=== PATIENT | female | born 1950 | race Caucasian/White ===

== ENCOUNTER → 2017-11-12 10:24 | Outpatient (CLI) | payer MEDICARE, OTHER, SELFPAY ==
[2017-11-12 10:30] VITALS: BP 133/85; PULSE 95; RESP 16; TEMP 36.8; O2SAT 97; BMI 35.1
[2017-11-12] MEDS: DENOSUMAB 60 MG/ML ML SQ (10:43)
== END ==
PROVIDERS: Family Provider Nurse Practitioner; PCP Nurse Practitioner; Visit Provider Nurse Practitioner
DX: M81.0 Age-related osteoporosis without current pathological fracture (principal)
CPT/HCPCS: 96372

== ENCOUNTER → 2017-12-09 13:14 | Outpatient (CLI) | payer MEDICARE, OTHER, SELFPAY ==
--- NOTE | 2017-12-09 13:19 | RAD_ITS ---
STUDY: X-RAY CHEST REASON FOR EXAM: Female, 67 years old. Cough. TECHNIQUE: PA and lateral views of the chest. COMPARISON: 04/02/2017. FINDINGS: The lungs are somewhat hyperinflated with COPD changes. The previously noted atelectatic changes in the right lower lobe have essentially cleared. No focal infiltrate is seen. There is no demonstrated pleural abnormality. Normal size heart. Normal mediastinum and beth. Normal visualized pulmonary arteries. There is atherosclerotic tortuosity of the aortic arch and descending thoracic aorta. There are diffuse degenerative changes of the visualized thoracic spine. There is increased kyphosis and levoscoliosis of the thoracic spine. There are mild degenerative changes of both shoulders. There is no demonstrated abnormality of the visualized soft tissue structures of the upper abdomen. RAD/Chest PA and Lateral IMPRESSION: No active pulmonary disease. Electronically Signed: Kalia Dave MD at 3:52 EDT Tel , Service support ,
== END ==
PROVIDERS: Family Provider Nurse Practitioner; PCP Nurse Practitioner; Visit Provider Nurse Practitioner
DX: R05 Cough (principal)
CPT/HCPCS: 71046

== ENCOUNTER 2018-05-01 15:40 | Emergency (ER) | payer MEDICARE, OTHER, SELFPAY ==
[2018-05-01 15:41] VITALS: BP 167/87; PULSE 69; RESP 19; TEMP 36.7; O2SAT 97; BMI 36.6
[2018-05-01 15:54] VITALS: BP 189/87; PULSE 69; RESP 14; O2SAT 95
--- NOTE | 2018-05-01 16:26 | ED.VISSUMM ---
- ER Visit Summary Date of Service: 05/01/18 Chief Complaint: Lightheaded History of Present Illness: The patient is a 68 F who sees Juliann davila. 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 States it is unchanged with standing. No vertigo. No chest pain, palpitations, or shortness of breath. No abdominal pain, nausea, vomiting, or diarrhea. Review of systems: General: No fever, chills, cold sweats. Cardiovascular: No chest pain, palpitations. Respiratory: No cough, shortness of breath, dyspnea on exertion. Gastrointestinal: No abdominal pain, nausea, vomiting, diarrhea, melena, or hematochezia. Genitourinary: No dysuria, frequency, hematuria. Skin: No rash. Neuro: No headache, numbness, weakness. Physical Examination: Vitals: Stable. Afebrile. General: Well-nourished and well-developed. Head: Normocephalic atraumatic. Neck: Supple, no lymphadenopathy. No JVD. Nontender. Cardiovascular: Regular rate and rhythm. No murmurs. Respiratory: No respiratory distress. Clear to auscultation bilaterally. Abdominal: Soft, nontender, nondistended, normal bowel sounds. No guarding, rebound, or peritoneal signs. Back: Nontender. Extremities: Nontender, no edema. Skin: Normal color, no rash. Neurologic: Alert and oriented ?3. Cranial nerves II through XII are intact. Normal strength and sensation. Psych: Normal affect. Test Results: EKG is sinus at 60 with no acute changes. CBC is marked for hemoglobin of 15.6. Chem-7 is more for glucose 158 and a BUN/creatinine ratio of 20.8. Emergency Department Course and Treatment: Patient had an IV placed. She was given a 500 cc bolus of normal saline and is resting comfortably. Her blood pressure has remained elevated in the 170-180/90-100 range. She continues to deny any headache or chest pain. Treatment Plan: Patient is on 10 mg of Norvasc a day. She is not on any other antihypertensive. She will be discharged instructions to follow-up with her primary care physician within a week for her blood pressure to be checked again. Return to the emergency department for any worsening symptoms. Disposition: To home in improved and stable condition. Impression: 1. Hypertension. 2. Lightheadedness. This note was generated with [employer] dictation software. It may contain incorrect words, spelling, and punctuation that were not noted in review of the chart prior to signing ED Disposition - Plan for ED Patient: Chief Complaint: Hypertension Instructions: ED Hypertension Conf Out Of Control Referrals: Juliann Dougherty [Primary Care Provider] - 1 Week
[2018-05-01 16:42] LABS: Absolute Lymphocyte Count 2.39 X10^3/ul (0.83-4.51); Absolute Neutrophil Count 5.4 X10^3/uL (2.0-7.7); Basophil# 0.03 X10^3/uL; Basophil% 0.3 % (0-1); Eosinophil# 0.18 X10^3/uL; Hematocrit 45.8 % (37-47); Hemoglobin 15.6 g/dl (12.0-15.0); Lymphocyte # 2.39 X10^3/ul (4.0); Mean Corp Hgb Conc 34.1 g/gl (32-36); Mean Platelet Vol. 10.9 fl (6.2-12.0); Monocyte# 0.82 X10^3/uL; Monocyte% 9.3 % (0-10); Neutrophil # 5.42 X10^3/uL (2.7-7.7); Neutrophil % 61.2 % (47-70); Platelet Count 182 K/mm3 (150-450); RBC Distribution Width CV 13.2 % (11.6-14.6); RBC Distribution Width SD 44.5 fl (35.1-43.9); Red Blood Count 4.87 M/mm3 (4.2-5.4); White Blood Count 8.9 K/mm3 (4.4-11.0)
[2018-05-01 16:44] LABS: POSITIVE COUNT NO; POSITIVE DIFFERENTIAL NO; POSITIVE MORPHOLOGY NO
[2018-05-01 16:57] LABS: Anion Gap 9 (5-15); BUN 15 mg/dL (7-18); BUN/Creat Ratio 20.8 RATIO (10-20); Calcium,Total 8.5 mg/dL (8.5-10.1); Chloride 105 mmol/L (98-107); Creatinine, Serum 0.72 mg/dL (0.55-1.02); EST Glomerular Filtration Rate 86 mL/min (>60); Est Glom Filt Rate - Afr Amer 104 mL/min (>60); Estimated Creatinine Clearance 71.81 ml/min; Glucose 158 mg/dL (74-106); Potassium 3.6 mmol/L (3.5-5.1); Sodium Level 141 mmol/L (136-145)
[2018-05-01 17:16] VITALS: BP 161/92
== END 2018-05-01 17:32 | disposition home or self-care (01) ==
PROVIDERS: Emergency Provider Emergency Medicine; Family Provider Nurse Practitioner; PCP Nurse Practitioner
DX: I10 Essential (primary) hypertension (principal); R42 Dizziness and giddiness; J44.9 Chronic obstructive pulmonary disease, unspecified; Z79.899 Other long term (current) drug therapy
CPT/HCPCS: 80048; 85025; 93005; 96360; 99284; J7040; A4216

== ENCOUNTER 2018-05-11 22:46 | Emergency (ER) | payer MEDICARE, OTHER, SELFPAY ==
[2018-05-11 22:46] VITALS: BP 157/91; PULSE 87; RESP 15; TEMP 36.7; BMI 36.3
--- NOTE | 2018-05-11 23:17 | ED.VISSUMM ---
- ER Visit Summary Date of Service: 05/11/18 Chief Complaint: Cough, sore throat, right ear pain History of Present Illness: The patient is a 68 F who presents with the above symptoms. Been ongoing for 2 days. She started off with sinus congestion and sore throat. Her throat was improving but she developed right ear pain tonight. Denies taking medications at home. She has not had a fever. She does have a history of COPD. Physical Examination: Vital signs are reviewed. HEENT exam reveals right TM erythema on the anterior portion. No rhinorrhea. She does have some slight oropharyngeal erythema. Heart is regular rate and rhythm. Lungs are clear. Abdomen soft. Neurologic exam normal. Test Results: None performed Emergency Department Course and Treatment: Patient will be given a azithromycin. She will do supportive care at home. She will follow-up with her PCP Treatment Plan: [] Disposition: Discharge Impression: Right otitis media This note was generated with Deolan dictation software. It may contain incorrect words, spelling, and punctuation that were not noted in review of the chart prior to signing ED Disposition - Plan for ED Patient: Chief Complaint: Ear Problem Referrals: Juliann Dougherty [Primary Care Provider] -
--- NOTE | 2018-05-11 23:18 | ED.DEP ---
ED Disposition - Plan for ED Patient: Disposition: Home or Assisted Living Chief Complaint: Ear Problem Instructions: ED Otitis Media Acute Adult Prescriptions: Azithromycin [Zithromax] 250 mg PO DAILY #4 tab Referrals: Juliann Dougherty [Primary Care Provider] -
[2018-05-11] MEDS: Azithromycin 250 MG Tablet 500 MG PO (23:26)
[2018-05-11 23:29] VITALS: BP 149/89; PULSE 87; RESP 16; O2SAT 94
== END 2018-05-11 23:31 | disposition home or self-care (01) ==
PROVIDERS: Emergency Provider Emergency Medicine; Family Provider Nurse Practitioner; PCP Nurse Practitioner
DX: H66.91 Otitis media, unspecified, right ear (principal); J44.9 Chronic obstructive pulmonary disease, unspecified; I10 Essential (primary) hypertension; E03.9 Hypothyroidism, unspecified; Z79.899 Other long term (current) drug therapy
CPT/HCPCS: 99282

== ENCOUNTER → 2018-07-28 12:48 | Outpatient (CLI) | payer MEDICARE, OTHER, SELFPAY ==
[2018-07-28 12:56] VITALS: BP 143/64; PULSE 81; RESP 18; TEMP 36.4; O2SAT 95; BMI 36.3
[2018-07-28] MEDS: DENOSUMAB 60 MG/ML ML SQ (13:05)
== END ==
PROVIDERS: Family Provider Nurse Practitioner; PCP Nurse Practitioner; Referring Provider Nurse Practitioner; Visit Provider Nurse Practitioner
DX: M81.0 Age-related osteoporosis without current pathological fracture (principal)
CPT/HCPCS: 96372; J0897

== ENCOUNTER 2018-08-29 09:56 | Outpatient (RCR) | payer MEDICARE, OTHER, SELFPAY ==
[2018-07-28 12:56] VITALS: BMI 36.3
== END 2018-09-08 23:59 ==
LOC: DC 09:56
PROVIDERS: Family Provider Nurse Practitioner; PCP Nurse Practitioner; Visit Provider Nurse Practitioner
DX: E11.9 Type 2 diabetes mellitus without complications (principal); Z71.3 Dietary counseling and surveillance
CPT/HCPCS: 97802

== ENCOUNTER 2018-09-17 08:09 | Outpatient (RCR) | payer MEDICARE, OTHER, SELFPAY ==
[2018-07-28 12:56] VITALS: BMI 36.3
== END 2018-10-09 23:59 ==
LOC: DC 08:09
PROVIDERS: Family Provider Nurse Practitioner; PCP Nurse Practitioner; Visit Provider Nurse Practitioner
DX: E11.9 Type 2 diabetes mellitus without complications (principal); Z71.3 Dietary counseling and surveillance
CPT/HCPCS: G0108

== ENCOUNTER → 2018-10-02 12:26 | Outpatient (CLI) | payer MEDICARE, OTHER, SELFPAY ==
[2018-07-28 12:56] VITALS: BMI 36.3
--- NOTE | 2018-10-02 12:32 | BI_ITS ---
MAMMOGRAPHY - BILATERAL SCREENING REASON FOR EXAM: Female, 68 years old. Routine annual screening examination. PERTINENT HISTORY: Non-contributory. TECHNIQUE: Digital bilateral breast gino (3D mammographic acquisition) in the CC and MLO projections. 2-D mediolateral oblique (MLO) and craniocaudad (CC) views of both breasts were obtained. CAD: Full Field Digital Mammography with Computer Added Detection was performed. COMPARISON: Comparison is made with prior study dated August 14, 2016 and April 20, 2014. FINDINGS: Breast Composition: There are scattered areas of fibroglandular density. There are no dominant masses or suspicious calcifications. No other significant abnormalities are identified. There has been no significant change since the prior study. BI/SCREENING MAMM (CAD), BILAT IMPRESSION: Stable bilateral screening mammogram. Yearly follow-up mammogram recommended. (A) ASSESSMENT CATEGORY: BIRADS Category 1: Negative. A letter regarding these results will be sent to the patient by the facility within 30 days. Approximately 10% of breast cancers are not detected by mammography. A normal mammogram should not delay biopsy of a clinically suspicious abnormality. [id number] Electronically Signed: Jose Billy MD at 15:00 EST , Service support ,
--- NOTE | 2018-10-02 12:34 | BD_ITS ---
STUDY: DUAL ENERGY X-RAY ABSORPTIOMETRY / DXA REASON FOR EXAM: Female, 68 years old. The patient is postmenopausal. Loss of height. TECHNIQUE: Bone Mineral Density (BMD) measurements of lumbar spine and bilateral hips were obtained. COMPARISON: Comparison is made with prior examination dated August 14, 2016. FINDINGS: Lumbar Spine (L1-L4): g/cm2 (1.007) / T-score (-1.6) / Z-score (0.0) Findings are suggestive of osteopenia with a moderate fracture risk. Increased kyphosis. Left Femur Total: g/cm2 (0.703) / T-score (-2.4) / Z-score (-1.1) Left Femoral Neck: g/cm2 (0.705) / T-score (-2.4) / Z-score (-0.9) Right Femur Total: g/cm2 (0.768) / T-score (-1.9) / Z-score (-0.6) Right Femoral Neck: g/cm2 (0.762) / T-score (-2.0) / Z-score (-0.5) The T-Scores on the most recent prior examination were: Lumbar Spine (L1-L4): There has been improvement of bone density since the previous examination. Left Femur Total: which represents an improvement of 0.9%. Right Femur Total: which represents a worsening of 1.5%. BD/Dexa Bone Density Study IMPRESSION: The patient is considered osteopenic as outlined below according to World [employer] Organization (WHO) criteria with a high fracture risk. There has been improvement of bone density since the previous examination. Reference Information: The T-score is the number of standard deviations above or below the standard which is normal for young adults at their peak bone mineral density. The World Health Organization (WHO) interprets the T-scores as follows: Above -1 Normal bone density Between -1 and -2.5 Osteopenia Equal to / or below -2.5 Osteoporosis As a practical clinical guideline, osteopenia may be graded as follows: Mild -1 through -1.5 Moderate -1.6 through -2.0 Severe -2.1 through -2.4 The Z-score is the number of standard deviations above or below age-matched controls. A Z-score of less than -1.5 would be considered abnormal. References: 1. NIH Osteoporosis and Related Bone Diseases http://www.osteo.org 2. International Society for Clinical Densitometry http://www.iscd.org 3. National Osteoporosis Foundation http://www.nof.org Electronically Signed: Jose Billy MD at 15:58 EST , Service support ,
== END ==
PROVIDERS: Family Provider Nurse Practitioner; PCP Nurse Practitioner; Referring Provider Nurse Practitioner; Visit Provider Nurse Practitioner
DX: Z12.31 Encounter for screening mammogram for malignant neoplasm of breast (principal); Z78.0 Asymptomatic menopausal state; M85.80 Other specified disorders of bone density and structure, unspecified site
CPT/HCPCS: 77063; 77067; 77080

== ENCOUNTER 2018-10-07 04:06 | Emergency (ER) | payer MEDICARE, OTHER, SELFPAY ==
[2018-07-28 12:56] VITALS: BMI 36.3
[2018-10-07 04:07] VITALS: BP 186/91; PULSE 73; RESP 14; TEMP 36; O2SAT 97; BMI 34.4
[2018-10-07 04:10] VITALS: BP 186/91; PULSE 69; RESP 14; O2SAT 99
--- NOTE | 2018-10-07 04:25 | ED.VISSUMM ---
- ER Visit Summary Date of Service: 10/07/18 Chief Complaint: [nausea and vomiting] History of Present Illness: The patient is a 68 F that presents with nausea and vomiting when she awoke several hours ago. She denies any urinary symptoms, abdominal pain, fever, or diarrhea. She overall appears well and nontoxic. She denies any chest pain or dyspnea. No recent fever or illness. She has no other complaints. Physical Examination: [General: The patient appears well and in no apparent distress. Patient is resting comfortably on cart. Skin: Warm, dry, no pallor noted. No rash. Head: Normocephalic, atraumatic Neck: Supple, nontender. Eye: PERRLA, EOMI ENT: Moist mucus membranes, pharynx within normal limits. Cardiovascular: Regular Rate and Rhythm, no gallups or rubs Respiratory: Patient is in no distress, no accessory muscle use, lungs are clear to auscultation, no wheezing, rales or rhonchi Musculoskeletal: normal ROM, no deformity, no tenderness, no swelling. 2+ radial and DP pulses symmetric. GI: No tenderness to palpation, no masses appreciated. No rebound, guarding, or rigidity noted. Neurological: A&O, normal strength and sensation. Psychiatric: Cooperative] Test Results: [] Emergency Department Course and Treatment: [Patient was given IV fluids and Zofran. Blood work and urinalysis were sent. Blood work overall unremarkable. Hemoglobin 16.2. Urinalysis not consistent with infection. On reevaluation at 0500 patient feels improved, repeat exam remains soft and nontender of her abdomen. She denies any pain. No vomiting while in the emergency department. I do not feel imaging or further evaluation is indicated at this time. She will be discharged to follow closely with her primary provider in the next 1-2 days and return with any new or worsening symptoms. She continues to deny any other symptoms or complaints. She states she feels significantly improved. Patient discharged home in stable and improved condition.] Treatment Plan: [See above] Disposition: [Discharged home, stable and improved condition] Impression: [Nausea and vomiting -resolved] This note was generated with Peek Kids[employer] software. It may contain incorrect words, spelling, and punctuation that were not noted in review of the chart prior to signing ED Disposition - Plan for ED Patient: Disposition: Home or Assisted Living Chief Complaint: Nausea/Vomiting Instructions: ED Nausea Vomiting Referrals: Juliann Dougherty, TOUR CONDUCTOR-C [Primary Care Provider] -
[2018-10-07] MEDS: 0.9% Normal Saline 1,000 ML 150 ML IV (04:30)
[2018-10-07] MEDS: Ondansetron 4 MG/2 ML Vial IV (04:36)
[2018-10-07 04:37] LABS: Mucous, Urine 0 SEEN /hpf (<or=2+)
[2018-10-07 04:39] LABS: Absolute Lymphocyte Count 2.28 X10^3/ul (0.83-4.51); Absolute Neutrophil Count 7.3 X10^3/uL (2.0-7.7); Basophil# 0.02 X10^3/uL; Basophil% 0.2 % (0-1); Eosinophil# 0.21 X10^3/uL; Hematocrit 48.4 % (37-47); Hemoglobin 16.2 g/dl (12.0-15.0); Lymphocyte # 2.28 X10^3/ul (4.0); Lymphocyte % 21.3 % (19-41); Mean Corp Hgb Conc 33.5 g/gl (32-36); Mean Corpuscular Hgb 31.3 pg (27.0-32.0); Mean Corpuscular Volume 93.4 fL (81-99); Mean Platelet Vol. 11.3 fl (6.2-12.0); Monocyte% 8.4 % (0-10); Neutrophil # 7.28 X10^3/uL (2.7-7.7); Neutrophil % 67.9 % (47-70); POSITIVE COUNT NO; POSITIVE DIFFERENTIAL NO; POSITIVE MORPHOLOGY NO; Platelet Count 226 K/mm3 (150-450); RBC Distribution Width CV 13.6 % (11.6-14.6); RBC Distribution Width SD 45.1 fl (35.1-43.9); Red Blood Count 5.18 M/mm3 (4.2-5.4); White Blood Count 10.7 K/mm3 (4.4-11.0)
[2018-10-07 04:44] LABS: Color, Urine Yellow (Yellow); Glucose, Dipstick Normal (Normal); Ketone-Dipstick Negative (Negative); Leukocyte Esterase-Dipstick 25 /ul (Negative); Nitrite-Dipstick Negative (Negative); Occult Blood-Urine 10 /ul (Negative); Protein-Dipstick Negative (Negative); Urine Bilirubin Dipstick Negative (Negative); Urine Clarity Sl. Cloudy (Clear); Urine Urobilinogen Normal (Normal)
[2018-10-07 04:50] LABS: Red Blood Cells-Urine 0-5 SEEN /hpf (0-5); White Blood Cells 0-5 SEEN /hpf (0-5)
[2018-10-07 04:51] LABS: Amorphous Sediment 1+ PHOS; Bacteria RARE /hpf (None Seen); Calcium Oxalate Crystals Ur RARE /hpf (<or=2+); Squamous Epithelial Cells - UA 0-5 SEEN /hpf (5-10)
[2018-10-07 04:58] LABS: ALB/GLOB Ratio 1.2 RATIO (0.9-2.4); AST(SGOT) 22 U/L (15-37); Alanine Aminotransfer ALT/SGPT 31 U/L (13-56); Alkaline Phosphatase 71 U/L (45-117); Anion Gap 9 (5-15); BUN 25 mg/dL (7-18); BUN/Creat Ratio 34.5 RATIO (10-20); Calcium,Total 8.9 mg/dL (8.5-10.1); Chloride 108 mmol/L (98-107); Creatinine, Serum 0.72 mg/dL (0.55-1.02); EST Glomerular Filtration Rate 85 mL/min (>60); Est Glom Filt Rate - Afr Amer 103 mL/min (>60); Estimated Creatinine Clearance 65.26 ml/min; Globulin 3.4 g/dL (2.2-4.2); Glucose 137 mg/dL (74-106); Lipase 119 U/L (73-393); Potassium 3.7 mmol/L (3.5-5.1); Protein, Total 7.4 g/dL (6.4-8.2); Sodium Level 143 mmol/L (136-145)
[2018-10-07 05:12] VITALS: BP 166/85; PULSE 58; O2SAT 97
== END 2018-10-07 05:14 | disposition home or self-care (01) ==
PROVIDERS: Emergency Provider Emergency Medicine; Family Provider Nurse Practitioner; PCP Nurse Practitioner
DX: R11.2 Nausea with vomiting, unspecified (principal); E11.9 Type 2 diabetes mellitus without complications; I10 Essential (primary) hypertension; E03.9 Hypothyroidism, unspecified; F41.9 Anxiety disorder, unspecified; Z79.899 Other long term (current) drug therapy
CPT/HCPCS: 80053; 81001; 83690; 85025; 96361; 96374; 99283; J7030; J2405

== ENCOUNTER 2018-10-22 14:00 | Outpatient (RCR) | payer MEDICARE, OTHER, SELFPAY ==
[2018-10-10 01:35] VITALS: BMI 36.3
== END 2018-11-06 23:59 ==
LOC: DC 14:00
PROVIDERS: Family Provider Nurse Practitioner; PCP Nurse Practitioner; Visit Provider Nurse Practitioner
DX: E11.9 Type 2 diabetes mellitus without complications (principal); Z71.3 Dietary counseling and surveillance
CPT/HCPCS: 97803; G0108

== ENCOUNTER → 2018-11-12 13:26 | Outpatient (CLI) | payer MEDICARE, OTHER, SELFPAY ==
[2018-11-07 01:15] VITALS: BMI 34.4
--- NOTE | 2018-11-12 13:35 | RAD_ITS ---
STUDY: X-RAY - RIGHT KNEE REASON FOR EXAM: Female, 68 years old. Chronic pain TECHNIQUE: 4 view(s) of the knee. COMPARISON: None. FINDINGS: Possible focal subchondral defect of the medial femoral condyle at the articular surface. Normal visualized proximal tibia and fibula. Normal proximal tibiofibular articulation. Degenerative spurring and narrowing at the medial femorotibial compartment. Normal lateral femorotibial compartment. Degenerate spurring and narrowing at the patellofemoral articulation. The soft tissue structures are unremarkable. RAD/Knee 4 or More Views IMPRESSION: Degenerative changes of the knee. Possible small subchondral defect of the medial femoral condyle over the articular surface. Electronically Signed: Yosvany Ambrocio DO at 19:08 EST Tel [phone], Service support ,
== END ==
PROVIDERS: Family Provider Nurse Practitioner; PCP Nurse Practitioner; Referring Provider Nurse Practitioner; Visit Provider Internal Medicine
DX: M25.561 Pain in right knee (principal)
CPT/HCPCS: 73564

== ENCOUNTER 2018-11-16 00:56 | Emergency (ER) | payer MEDICARE, OTHER, SELFPAY ==
[2018-11-07 01:15] VITALS: BMI 34.4
[2018-11-16 00:56] VITALS: BP 132/87; PULSE 98; PULSE 99; RESP 18; TEMP 36.4; O2SAT 94; O2SAT 95; BMI 32.1
[2018-11-16] MEDS: 0.9% Normal Saline 1,000 ML 1000 ML IV (01:50)
[2018-11-16] MEDS: Ondansetron 4 MG/2 ML Vial IV (01:51)
[2018-11-16] MEDS: Loperamide 2 MG Capsule 4 MG PO (03:01)
[2018-11-16 03:06] LABS: Absolute Lymphocyte Count 1.35 X10^3/ul (0.83-4.51); Absolute Neutrophil Count 9.9 X10^3/uL (2.0-7.7); Basophil# 0.03 X10^3/uL; Basophil% 0.2 % (0-1); Eosinophil# 0.23 X10^3/uL; Eosinophils% 1.8 % (0-5); Hematocrit 48.1 % (37-47); Hemoglobin 16.1 g/dl (12.0-15.0); Lymphocyte # 1.35 X10^3/ul (4.0); Lymphocyte % 10.9 % (19-41); Mean Corp Hgb Conc 33.5 g/gl (32-36); Mean Corpuscular Hgb 31.4 pg (27.0-32.0); Mean Corpuscular Volume 93.8 fL (81-99); Mean Platelet Vol. 11.8 fl (6.2-12.0); Monocyte# 0.91 X10^3/uL; Monocyte% 7.3 % (0-10); Neutrophil # 9.91 X10^3/uL (2.7-7.7); Neutrophil % 79.7 % (47-70); Platelet Count 218 K/mm3 (150-450); RBC Distribution Width SD 46.5 fl (35.1-43.9); Red Blood Count 5.13 M/mm3 (4.2-5.4); White Blood Count 12.4 K/mm3 (4.4-11.0)
[2018-11-16 03:15] LABS: POSITIVE COUNT NO; POSITIVE DIFFERENTIAL NO; POSITIVE MORPHOLOGY NO
[2018-11-16 03:37] LABS: ALB/GLOB Ratio 1.3 RATIO (0.9-2.4); AST(SGOT) 50 U/L (15-37); Alanine Aminotransfer ALT/SGPT 35 U/L (13-56); Albumin, Serum 4.3 g/dL (3.2-5.0); Alkaline Phosphatase 64 U/L (45-117); Anion Gap 10 (5-15); BUN 24 mg/dL (7-18); BUN/Creat Ratio 27.3 RATIO (10-20); Calcium,Total 8.9 mg/dL (8.5-10.1); Chloride 107 mmol/L (98-107); Creatinine, Serum 0.88 mg/dL (0.55-1.02); EST Glomerular Filtration Rate 68 mL/min (>60); Est Glom Filt Rate - Afr Amer 83 mL/min (>60); Globulin 3.4 g/dL (2.2-4.2); Glucose 205 mg/dL (74-106); Lipase 149 U/L (73-393); Potassium 5.1 mmol/L (3.5-5.1); Protein, Total 7.7 g/dL (6.4-8.2); Sodium Level 138 mmol/L (136-145)
--- NOTE | 2018-11-16 04:05 | ED.VISSUMM ---
- ER Visit Summary Date of Service: 11/16/18 Chief Complaint: Nausea vomiting and diarrhea History of Present Illness: The patient is a 68 F who presents with nausea vomiting and diarrhea. This all began acutely about 6 hours before presentation. She reports 4-5 episodes of nonbloody nonbilious emesis and 3-4 episodes of watery stools. No abdominal pain. She states her throat is burning from vomiting but she otherwise has no complaints. No recent illness. No fevers. She notes that she ate chili for dinner and thought that this may be related. No sick contacts. Physical Examination: Afebrile vitals are normal Moist mucous membranes Heart regular rate and rhythm Lungs are clear Abdomen soft nontender nondistended Alert Normal affect Test Results: Labs notable for white count 12.4, hemoglobin 16.1, hepatic function unremarkable lipase normal. Emergency Department Course and Treatment: Patient was treated here with IV fluids Zofran and sodium. She feels better on reevaluation. I suspect this is related to gastroenteritis either food poisoning or viral. She was advised on supportive care. She understands to return for new or worsening symptoms. She was instructed on bland diet. She was given a prescription for Zofran. Patient discharged. Treatment Plan: [] Disposition: Discharge Impression: Gastroenteritis This note was generated with Tri[employer]o dictation software. It may contain incorrect words, spelling, and punctuation that were not noted in review of the chart prior to signing ED Disposition - Plan for ED Patient: Referrals: Juliann Dougherty, GUEST ADVISOR-C [Primary Care Provider] -
--- NOTE | 2018-11-16 04:09 | ED.DCSUM_ITS ---
- ER Visit Summary Date of Service: 11/16/18 Chief Complaint: Nausea vomiting and diarrhea History of Present Illness: The patient is a 68 F who presents with nausea vomiting and diarrhea. This all began acutely about 6 hours before presentation. She reports 4-5 episodes of nonbloody nonbilious emesis and 3-4 episodes of watery stools. No abdominal pain. She states her throat is burning from vomiting but she otherwise has no complaints. No recent illness. No fevers. She notes that she ate chili for dinner and thought that this may be related. No sick contacts. Physical Examination: Afebrile vitals are normal Moist mucous membranes Heart regular rate and rhythm Lungs are clear Abdomen soft nontender nondistended Alert Normal affect Test Results: Labs notable for white count 12.4, hemoglobin 16.1, hepatic function unremarkable lipase normal. Emergency Department Course and Treatment: Patient was treated here with IV fluids Zofran and sodium. She feels better on reevaluation. I suspect this is related to gastroenteritis either food poisoning or viral. She was advised on supportive care. She understands to return for new or worsening symptoms. She was instructed on bland diet. She was given a prescription for Zofran. Patient discharged. Treatment Plan: [] Disposition: Discharge Impression: Gastroenteritis This note was generated with Dream[employer] dictation software. It may contain incorrect words, spelling, and punctuation that were not noted in review of the chart prior to signing ED Disposition - Plan for ED Patient: Referrals: Juliann Dougherty, SOFTWARE QA MANAGER-C [Primary Care Provider] -
--- NOTE | 2018-11-16 04:09 | ED.DEP ---
ED Disposition - Plan for ED Patient: Instructions: ED Food Poison Or Gastroenteritis Prescriptions: Ondansetron [Zofran Odt] 4 mg PO Q8H PRN PRN #10 tab PRN Reason: Nausea Referrals: Juliann Dougherty NP-C [Primary Care Provider] -
[2018-11-16 04:30] VITALS: BP 130/70; PULSE 62; RESP 15; O2SAT 93
== END 2018-11-16 04:34 | disposition home or self-care (01) ==
PROVIDERS: Emergency Provider Emergency Medicine; Family Provider Nurse Practitioner; PCP Nurse Practitioner
DX: K52.9 Noninfective gastroenteritis and colitis, unspecified (principal); E11.9 Type 2 diabetes mellitus without complications; I10 Essential (primary) hypertension; Z79.84 Long term (current) use of oral hypoglycemic drugs; Z79.899 Other long term (current) drug therapy
CPT/HCPCS: 80053; 83690; 85025; 96361; 96374; 99284; J7030; A4216; J2405

== ENCOUNTER → 2018-11-17 14:39 | Outpatient (CLI) | payer MEDICARE, OTHER, SELFPAY ==
[2018-11-16 00:56] VITALS: BMI 32.1
[2018-11-17 15:00] LABS: Hematocrit 45.7 % (37-47); Hemoglobin 14.5 g/dl (12.0-15.0); Mean Corp Hgb Conc 31.7 g/gl (32-36); Mean Corpuscular Hgb 30.7 pg (27.0-32.0); Mean Corpuscular Volume 96.8 fL (81-99); Platelet Count 202 K/mm3 (150-450); Red Blood Count 4.72 M/mm3 (4.2-5.4); White Blood Count 10.1 K/mm3 (4.4-11.0)
[2018-11-17 15:19] LABS: Eosinophil 7 % (0-5); Lymphocyte 31 % (19-41); Monocyte 8 % (0-10); Neutrophil-Segmented 54 % (47-70); Total Cells Counted 100 (MANUAL DIFF)
[2018-11-17 15:23] LABS: Platelet Estimate ADEQUATE (ADEQ); Red Cell Morphology NORM C+C NORMAL (NORM C&C)
[2018-11-17 15:24] LABS: Absolute Neutrophil Count 5.5 X10^3/uL (2.0-7.7)
== END ==
PROVIDERS: Family Provider Nurse Practitioner; PCP Nurse Practitioner; Referring Provider Internal Medicine; Visit Provider Internal Medicine
DX: D72.829 Elevated white blood cell count, unspecified (principal)
CPT/HCPCS: 85007; 85027

== ENCOUNTER 2018-11-19 12:19 | Outpatient (RCR) | payer MEDICARE, OTHER, SELFPAY ==
[2018-11-07 01:15] VITALS: BMI 34.4
== END 2018-12-07 23:59 ==
LOC: DC 12:19
PROVIDERS: Family Provider Nurse Practitioner; PCP Nurse Practitioner; Visit Provider Nurse Practitioner
DX: E11.9 Type 2 diabetes mellitus without complications (principal); Z71.3 Dietary counseling and surveillance
CPT/HCPCS: G0108

== ENCOUNTER 2018-12-17 14:36 | Outpatient (RCR) | payer MEDICARE, OTHER, SELFPAY | END 2019-01-06 23:59 | LOC: DC 14:36 | PROVIDERS: Family Provider Nurse Practitioner; PCP Nurse Practitioner; Visit Provider Nurse Practitioner | DX: E11.9 Type 2 diabetes mellitus without complications (principal); Z71.3 Dietary counseling and surveillance | CPT/HCPCS: 97803 ==

== ENCOUNTER 2019-01-09 11:30 | Outpatient (RCR) | payer MEDICARE, OTHER, SELFPAY ==
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
--- NOTE | 2018-12-12 11:11 | HP.PTREVAL ---
Stacie Rodriguez, DO, It has been my pleasure to treat LAISHA DELGADO over the last 10 visits for R and L knee pain and generalized weakness. Please see the progress note below for an update on the physical therapy plan of care! Subjective: Pt feels that she can walk better. He knee can be swollen some day and other not. She is really pleased with how the water makes her feel. She is thinking about joining here as a member Objective/Function: LE MMT: LE MMT: R hip flex 4/5 and L hip flex 4/5, R knee ext 4/5 and L 4-/5, R hip abd 4/5 and L 4-/5, R hip ext 4-/5 and L hip ext 4/5, B knee flex 4/5 but some in crease pain when testing on the R). Plan Plan: Continue with AT 2 X/ week for 3 weeks.... and then 2X/ week (1X AT and 1X land) to progress to H&W program Goals Goal 1:: I HEP Goal Time Frame: 6-8 Weeks Goal Progress: Goal Met Goal 2:: Be able to ascend and descend stairs recip with 1 hand rail for safety with fluidity Goal Time Frame: 6-8 Weeks Goal Progress: Progressing Goal 3:: Increase LE MMT by 1/2 muscle grade (LE MMT: R hip flex 4/5 and L hip flex 4-/5, R knee ext 4/5 and L 4-/5, R hip abd 4/5 and L 4-/5, R hip ext 4-/5 and L hip ext 4/5, B knee flex 4/5 but some in crease pain when testing on the R). Goal Progress: Progressing Anticipated Interventions Patient/Client Instruction: Educate patient on: Condition, Plan of Care For the Purpose of:: To decrease pain, To increase ROM, To improve nutrient delivery to tissue, To improve muscle performance and motor function, To improve ability to perform ADL's, To increase tolerance to activity/condition/position, To improve performance and independence with ADL's, To improve ability of physical actions for home/community/work/leisure, To improve gait and locomotor functions, To improve health of tissue, To decrease soft tissue restriction, To increase flexibility/ROM Therapeutic Exercise to Include: Strength training, Flexibilty training, Gait and locomotor training, In an aquatic setting, Passive ROM, Active ROM For the Purpose of:: To decrease pain, To increase ROM, To improve nutrient delivery to tissue, To improve muscle performance and motor function, To improve ability to perform ADL's, To increase tolerance to activity/condition/position, To decrease level of supervision to perform tasks, To improve ability of physical actions for home/community/work/leisure, To improve health of tissue, To decrease soft tissue restriction, To increase flexibility/ROM Functional Training to Include: Gait training For the Purpose of:: To improve gait and locomotor functions Please do not hesitate to contact me at [phone] by phone or if you have questions or concerns regarding this new plan of care! Sincerely, Luisana Mckeon MPT
--- NOTE | 2019-01-09 12:41 | HP.PTDCSUM ---
HP - PT D/C Summary It has been my pleasure to treat LAISHA DELGADO under orders from Stacie Rodriguez DO, for the diagnosis of R and L knee pain and generalized weakness for a total of 17 visit(s). Discharge Date: 01/09/19 Please see the following information for a summary of their discharge status. - Subjective Subjective: Pt reports taht her knee still swells up on her but she does not feeling like someone is grabbing her knee. is going to give her some shots. - Pain L knee Pain Intensity (Out of 10): 3 - Overall Improvement % Improvement: 70 - Objective Objective/Function: Encouraging pt to begin I pool progarm at this time, states she has not begun. Discussions of process and the combination of land and pool. Able to progress into greater WBing with step up/downs without c/o's. Some difficulty following commands of paper used today for transition to I pool program. - Goals Goal 1:: I HEP Goal Progress: Goal Met Goal 2:: Be able to ascend and descend stairs recip with 1 hand rail for safety with fluidity Goal Progress: Progressing Goal 3:: Increase LE MMT by 1/2 muscle grade (LE MMT: R hip flex 4/5 and L hip flex 4-/5, R knee ext 4/5 and L 4-/5, R hip abd 4/5 and L 4-/5, R hip ext 4-/5 and L hip ext 4/5, B knee flex 4/5 but some in crease pain when testing on the R). Goal Progress: Progressing - Plan Plan: DC PT to [facility] - D/C Information Discharge Comments: DC PT to [facility] If there are questions or concerns regarding this patient's physical therapy, please feel free to call me at [phone]. Thank you for the referral of this patient. Sincerely, Luisana Mckeon, MPT
== END 2019-01-09 19:00 | disposition home or self-care (01) ==
LOC: PT 11:30
PROVIDERS: Family Provider Nurse Practitioner; PCP Nurse Practitioner; Referring Provider Internal Medicine; Visit Provider Internal Medicine
DX: M25.561 Pain in right knee (principal); M25.562 Pain in left knee; R29.898 Other symptoms and signs involving the musculoskeletal system; Z96.652 Presence of left artificial knee joint
CPT/HCPCS: 97110; 97113; 97161; 97530

== ENCOUNTER 2019-01-14 10:45 | Outpatient (RCR) | payer MEDICARE, OTHER, SELFPAY | END 2019-01-14 23:59 | disposition home or self-care (01) | LOC: DC 10:45 | PROVIDERS: Family Provider Nurse Practitioner; PCP Nurse Practitioner; Visit Provider Nurse Practitioner | DX: E11.9 Type 2 diabetes mellitus without complications (principal); Z71.3 Dietary counseling and surveillance | CPT/HCPCS: G0108 ==

== ENCOUNTER → 2019-01-29 13:29 | Outpatient (CLI) | payer MEDICARE, OTHER, SELFPAY ==
[2019-01-29 13:37] VITALS: BP 132/73; PULSE 73; RESP 16; TEMP 36.6; O2SAT 92; BMI 31.5
[2019-01-29] MEDS: DENOSUMAB 60 MG/ML ML SQ (13:41)
== END ==
PROVIDERS: Family Provider Nurse Practitioner; PCP Nurse Practitioner; Referring Provider Nurse Practitioner; Visit Provider Nurse Practitioner
DX: M81.0 Age-related osteoporosis without current pathological fracture (principal)
CPT/HCPCS: 96372; J0897

== ENCOUNTER 2019-03-07 18:37 | Emergency (ER) | payer MEDICARE, OTHER, SELFPAY ==
[2019-03-07 18:37] VITALS: BMI 31.5
[2019-03-07 18:38] VITALS: BP 117/70; PULSE 86; RESP 16; TEMP 36.4; O2SAT 94; BMI 30.9
--- NOTE | 2019-03-07 18:54 | ED.VISSUMM ---
- ER Visit Summary Date of Service: 03/07/19 Chief Complaint: [Wound on right ankle] History of Present Illness: The patient is a 68 F [resents to the emergency department with a wound on her right ankle that started about 3 or 4 days ago. Patient states that initially she first noticed some itching to the ankle and noticed a small bump associated with it. Patient states that subsequently became more uncomfortable and swollen. She was seen by nurse practitioner 3 days ago and started on Bactrim for suspicion of MRSA infection. Patient states that she had the expected wound squeezed and there was clear fluid that came out of it. Denies any fevers. She continues to complain of some blistering to the area.] Patient is a type II diabetic on oral meds and states that normally her blood sugars in the low 100s to as high as 120. Physical Examination: [HEENT-PERRLA, EOMI. Cranial nerves II through XII grossly intact. TMs clear. Mucous membranes moist. No adenopathy. Cardiovascular-regular rate and rhythm without murmur or ectopy Lungs-clear to auscultation, chest wall stable without crepitus or subcu emphysema Abdomen-normoactive bowel sounds, soft, nontender, no rebound or rigidity, no peritoneal signs. Extremities-intact ?4, normal range of motion, normal pulses, atraumatic. Right ankle-to the posterior aspect of the ankle and over the Achilles tendon patient has multiple small vesicles with clear fluid. There is some mild surrounding erythema however the wound does not look overtly cellulitic. There is no lymphangitic streaking. She is neurovascular intact.] Test Results: [None indicated] Emergency Department Course and Treatment: [Patient was started on prednisone 40 mg p.o.] Treatment Plan: [We will treat patient with prednisone for 5 days. Patient to follow-up with her primary care physician for wound check and 3 to 5 days. I suspect patient likely has a contact dermatitis rather than a infection however I did advise her to continue with the antibiotic that she has started until he was finished.] Disposition: [Discharged home stable condition] Impression: [Contact dermatitis] This note was generated with [employer] software. It may contain incorrect words, spelling, and punctuation that were not noted in review of the chart prior to signing ED Disposition - Plan for ED Patient: Referrals: Juliann Dougherty, MOTOR VEHICLE REPRESENTATIVE-C [Primary Care Provider] -
--- NOTE | 2019-03-07 18:58 | ED.DEP ---
ED Disposition - Plan for ED Patient: Instructions: Contact Dermatitis Prescriptions: Prednisone [Deltasone] 20 mg PO BID #10 tab Prescription Printed Referrals: Juliann Dougherty, JIMMY-C [Primary Care Provider] - 3-5 Days
[2019-03-07] MEDS: predniSONE 20 MG Tablet 40 MG PO (19:01)
== END 2019-03-07 19:22 | disposition home or self-care (01) ==
LOC: ED 19:09
PROVIDERS: Emergency Provider Emergency Medicine; Family Provider Nurse Practitioner; PCP Nurse Practitioner
DX: L25.9 Unspecified contact dermatitis, unspecified cause (principal); E11.9 Type 2 diabetes mellitus without complications; I10 Essential (primary) hypertension; Z79.84 Long term (current) use of oral hypoglycemic drugs; Z79.899 Other long term (current) drug therapy; Z96.652 Presence of left artificial knee joint
CPT/HCPCS: 99283

== ENCOUNTER 2019-05-25 16:43 | Emergency (ER) | payer MEDICARE, OTHER, SELFPAY ==
[2019-05-25 16:44] VITALS: BP 137/72; PULSE 65; RESP 16; TEMP 36.6; O2SAT 98; BMI 31.1
--- NOTE | 2019-05-25 17:51 | ED.VIS.GI ---
History of Present Illness Chief Complaint: Nausea/Vomiting/Diarrhea Informant: Patient - Abdominal Pain/Flank Pain Onset: Yesterday Context: Sudden Onset Timing: Continuous Quality: Aching Location: Diffuse Current Severity: Mild Maximum Severity: Severe Worsened by: Food - Possibly. Not Worsened By: Car ride, Movement Relieved by: Nothing. Not Relieved By: Antacids, Food, Remaining Still - Nausea/Vomiting/Emesis GI Symptom: Nausea, Vomiting - Is 1 this morning Onset: Today Quality: Nonbilious. Negative for: Blood streaks, Coffee ground, Hematemesis Severity: Mild - Diarrhea/Melena/Hematochezia GI Symptom: Diarrhea. Negative for: Melena, Hematochezia Onset: Yesterday Stool Quality: Loose, Watery, - - Times 7 since onset last evening Severity: Moderate Episodes: 7 Associated Symptoms: Negative for: Dysuria, Frequency, Hematuria, Urgency Narrative: She is an elderly woman who is a poor informant. She does have medical problems. She denies any ill contacts. Denies fever chills. Eyes dry mouth, thirst or orthostatic symptoms. She reports emesis x1. There was no blood or coffee grounds emesis. She is had 7 loose watery stools without blood or mucus. She has no history of inflammatory bowel disorder. There is no history of irritable bowel syndrome. She denies any ill contacts. She states she had pizza last evening. The pizza tasted fine. Prior similar symptoms: No Recent Illness/Hospitalization: No - Past Medical History (1) Hypertension Status: Acute (2) Hypothyroid Status: Acute (3) Osteoarthritis Status: Acute Past Medical History - Allergies and Home Meds Allergies/Adverse Reactions: Allergies Penicillins Allergy (Verified 03/07/19 18:38) Unknown Primary Care Physician: Juliann Dougherty NP-C [Primary Care Provider] - Surgical History: total knee arthroplasty - left 12/05/15, tonsillectomy Lives: Alone Smoking Status: Former smoker Alcohol: None Drugs: None - Family History Maternal Family History: Reports: Cancer - in 30's, unknown type Paternal Family History: Reports: No pertinent history - in 70's Review of Systems General: Denies: Chills, Fever, Malaise, Sweats Eyes: Denies: Visual changes - bilaterally, Blurred Vision - bilaterally, Diplopia ENT: Denies: Bilateral ear pain, Rhinorrhea, Sore throat Cardiovascular: Denies: Chest pain, Palpitations Respiratory: Denies: Dyspnea, Cough, Dyspnea on exertion Gastrointestinal: Reports: Abdominal pain, Nausea, Vomiting, Diarrhea. Denies: Constipation, Melena, Hematochezia, -, - Genitourinary: Denies: Dysuria, Hematuria, Frequency Musculoskeletal: Denies: Myalgias, Arthralgias, Neck pain, Back pain, Swelling, Extremity Pain Skin: Denies: Rash, Wounds Neurological: Denies: Headache, Weakness, Numbness Hematologic: Denies: Easy bruising, Easy bleeding Physical Exam Vital Signs/Narrative: Vital Signs Temp Pulse Resp BP Pulse Ox 05/25/19 16:44 97.8 F 65 16 137/72 H 98 Inital Vital Signs reviewed: Yes General: Well nourished, Well developed, No Acute Distress Head: Normocephalic, Atraumatic Eyes: Perrl, EOMI ENT: Moist mucous membranes, No rhinorrhea Neck: Supple, Nontender Cardiovascular: Regular rate, Regular rhythm, No murmurs Respiratory: No distress, CTA bilaterally, Chest nontender Abdomen: Soft, Nondistended - Abdomen is tympanitic to percussion., Normal bowel sounds, Tender - Intimal tenderness on deep palpation.. Negative for: Hepatomegaly, Splenomegaly, Pulsatile mass, Ventral hernia, Umbilical hernia Rectal: Deferred Back: Nontender, Normal Inspection. Negative for: CVA tenderness Extremities: Nontender, No edema Skin: Normal color, No rash Neurological: Alert, Oriented x3, Cranial nerves II-XII grossly intact, Normal Strength, Normal Sensation Psychological: Normal affect, Normal Mood Diagnostic/Tx/Re-eval Laboratory Results 05/25/19 05/25/19 17:58 17:58 WBC 14.3 H RBC 5.22 Hgb 16.2 H Hct 50.2 H MCV 96.2 MCH 31.0 MCHC 32.3 RDW Std Deviation 46.8 H RDW Coeff of [place] 13.2 Plt Count 218 MPV 11.3 Immature Gran % (Auto) 0.300 Neut % (Auto) 71.3 H Lymph % (Auto) 15.0 L [place] % (Auto) 9.0 Eos % (Auto) 4.1 Baso % (Auto) 0.3 Absolute Neuts (auto) 10.2 H Absolute Lymphs (auto) 2.14 Nucleated RBC % 0 Sodium 145 Potassium 4.6 Chloride 112 H Carbon Dioxide 25.0 Anion Gap 8 BUN 27 H Creatinine 0.77 Estim Creat Clear Calc 60.20 Est GFR (MDRD) Af Amer 96 Est GFR (MDRD) Non-Af 79 BUN/Creatinine Ratio 35.1 H Glucose 124 H Calcium 9.6 White count is slightly elevated with no shift. Basic metabolic panel reveals elevated BUN/creatinine ratio consistent with mild dehydration. There is no evidence of renal injury. Patient was reassessed at 1910. She states she feels markedly better. She is had no diarrhea or vomiting department. She will be discharged with prescription for Bentyl and Zofran. - Medical Decision Making Patient's mucosa is moist Pillard will treat with p.o. meds. Because she is elderly and a poor informant we will obtain basic metabolic panel to assess electro lites and specifically potassium and renal function. CBC was obtained to assess white count and H&H. ED Disposition - Plan for ED Patient: Disposition: Home or Assisted Living Diagnosis: Abdominal pain, vomiting, and diarrhea, Mild dehydration Prescriptions: Dicyclomine HCl [Bentyl] 20 mg PO TIDAC #10 cap Prescription Printed Ondansetron [Zofran Odt] 4 mg PO Q8H PRN PRN #7 tab PRN Reason: Nausea Prescription Printed Referrals: Juliann Dougherty, JIMMY-C [Primary Care Provider] - As Needed
[2019-05-25] MEDS: Loperamide 2 MG Capsule 4 MG PO (18:04)
[2019-05-25] MEDS: Ondansetron ODT 4 MG Tablet PO (18:04)
[2019-05-25] MEDS: Dicyclomine 10 MG Capsule 20 MG PO (18:04)
[2019-05-25 18:16] LABS: Absolute Lymphocyte Count 2.14 X10^3/uL (0.83-4.51); Absolute Neutrophil Count 10.2 X10^3/uL (2.0-7.7); Basophil# 0.05 X10^3/uL; Basophil% 0.3 % (0-1); Eosinophil# 0.58 X10^3/uL; Eosinophils% 4.1 % (0-5); Hematocrit 50.2 % (37-47); Hemoglobin 16.2 g/dL (12.0-15.0); Lymphocyte # 2.14 X10^3/ul (4.0); Mean Corp Hgb Conc 32.3 g/dL (32-36); Mean Corpuscular Volume 96.2 fL (81-99); Mean Platelet Vol. 11.3 fl (6.2-12.0); Monocyte# 1.29 X10^3/uL; NRBC Flagged by Analyzer 0 % (0-5); Neutrophil # 10.19 X10^3/uL (2.7-7.7); Neutrophil % 71.3 % (47-70); Platelet Count 218 K/mm3 (150-450); RBC Distribution Width CV 13.2 % (11.6-14.6); RBC Distribution Width SD 46.8 fl (35.1-43.9); Red Blood Count 5.22 M/mm3 (4.2-5.4); White Blood Count 14.3 K/mm3 (4.4-11.0)
[2019-05-25 18:32] LABS: Anion Gap 8 (5-15); BUN 27 mg/dL (7-18); BUN/Creat Ratio 35.1 RATIO (10-20); Calcium,Total 9.6 mg/dL (8.5-10.1); Chloride 112 mmol/L (98-107); Creatinine, Serum 0.77 mg/dL (0.55-1.02); EST Glomerular Filtration Rate 79 mL/min (>60); Est Glom Filt Rate - Afr Amer 96 mL/min (>60); Glucose 124 mg/dL (74-106); Potassium 4.6 mmol/L (3.5-5.1); Sodium Level 145 mmol/L (136-145)
[2019-05-25 18:53] VITALS: BP 153/72; PULSE 61; RESP 16; O2SAT 95
--- NOTE | 2019-05-25 19:13 | ED.VISSUMM ---
- ER Visit Summary Date of Service: 05/25/19 Chief Complaint: [] History of Present Illness: The patient is a 69 F [] Physical Examination: [] Test Results: [] Emergency Department Course and Treatment: [] Treatment Plan: [] Disposition: [] Impression: [] This note was generated with [employer] dictation software. It may contain incorrect words, spelling, and punctuation that were not noted in review of the chart prior to signing ED Disposition - Plan for ED Patient: Disposition: Home or Assisted Living Diagnosis: Abdominal pain, vomiting, and diarrhea, Mild dehydration Instructions: VOMITING AND DIARRHEA, Nonspecific (Adult) Prescriptions: Dicyclomine HCl [Bentyl] 20 mg PO TIDAC #10 cap Prescription Printed Ondansetron [Zofran Odt] 4 mg PO Q8H PRN PRN #7 tab PRN Reason: Nausea Prescription Printed Referrals: Juliann Dougherty, SALES TEAM RECRUITER-C [Primary Care Provider] - As Needed
[2019-05-25 19:23] VITALS: BP 131/77; PULSE 81; RESP 16; O2SAT 95
== END 2019-05-25 19:24 | disposition home or self-care (01) ==
PROVIDERS: Emergency Provider Emergency Medicine; Family Provider Nurse Practitioner; PCP Nurse Practitioner
DX: R10.9 Unspecified abdominal pain (principal); E86.0 Dehydration; R11.2 Nausea with vomiting, unspecified; R19.7 Diarrhea, unspecified; I10 Essential (primary) hypertension; E03.9 Hypothyroidism, unspecified; M19.90 Unspecified osteoarthritis, unspecified site; Z79.84 Long term (current) use of oral hypoglycemic drugs; Z79.899 Other long term (current) drug therapy; Z88.0 Allergy status to penicillin; Z87.891 Personal history of nicotine dependence; Z96.652 Presence of left artificial knee joint
CPT/HCPCS: 80048; 85025; 99284; A4216

== ENCOUNTER → 2019-08-07 14:25 | Outpatient (CLI) | payer MEDICARE, OTHER, SELFPAY ==
[2019-01-29 13:37] VITALS: BMI 31.5
[2019-08-07] MEDS: DENOSUMAB 60 MG/ML ML SQ (14:37)
[2019-08-07 14:38] VITALS: BP 129/68; PULSE 81; RESP 16; TEMP 37.1; BMI 31.1
== END ==
PROVIDERS: Family Provider Nurse Practitioner; PCP Nurse Practitioner; Referring Provider Nurse Practitioner; Visit Provider Nurse Practitioner
DX: M81.0 Age-related osteoporosis without current pathological fracture (principal)
CPT/HCPCS: 96372; J0897

== ENCOUNTER → 2019-09-22 12:15 | Outpatient (CLI) | payer MEDICARE, OTHER, SELFPAY ==
[2019-08-07 14:38] VITALS: BMI 31.1
--- NOTE | 2019-09-22 12:18 | BI_ITS ---
MAMMOGRAPHY - BILATERAL SCREENING REASON FOR EXAM: Female, 69 years old. Routine annual screening examination. PERTINENT HISTORY: Non-contributory. TECHNIQUE: Digital bilateral breast itzel (3D mammographic acquisition) in the CC and MLO projections. 2-D mediolateral oblique (MLO) and craniocaudad (CC) views of both breasts were obtained. CAD: Full Field Digital Mammography with Computer Added Detection was performed. COMPARISON: Comparison is made with prior study dated October 02, 2018 and August 14, 2016. FINDINGS: Breast Composition: There are scattered areas of fibroglandular density. There are no dominant masses or suspicious calcifications. No other significant abnormalities are identified. There has been no significant change since the prior study. BI/SCREEN MAMM (CAD) W/ITZEL BILAT IMPRESSION: Stable bilateral screening mammogram. Yearly follow-up mammogram recommended. (A) ASSESSMENT CATEGORY: BIRADS Category 1: Negative. A letter regarding these results will be sent to the patient by the facility within 30 days. Approximately 10% of breast cancers are not detected by mammography. A normal mammogram should not delay biopsy of a clinically suspicious abnormality. [id number] Electronically Signed: Jose Billy, at 13:16 EST , Service support ,
== END ==
PROVIDERS: Family Provider Nurse Practitioner; PCP Nurse Practitioner; Referring Provider Nurse Practitioner; Visit Provider Nurse Practitioner
DX: Z12.31 Encounter for screening mammogram for malignant neoplasm of breast (principal)
CPT/HCPCS: 77063; 77067

== ENCOUNTER → 2019-10-19 11:19 | Outpatient (CLI) | payer MEDICARE, OTHER, SELFPAY ==
[2019-08-07 14:38] VITALS: BMI 31.1
--- NOTE | 2019-10-19 11:21 | US_ITS ---
STUDY: THYROID ULTRASOUND REASON FOR EXAM: Female, 69 years old. HYPOTHYROIDISM TECHNIQUE: Ultrasound evaluation of the thyroid was performed with real-time and static petit-scale imaging. COMPARISON: None. FINDINGS: RIGHT LOBE: The right lobe of the thyroid gland measures 1.9 x 0.6 x 0.9 cm. There is a homogeneous echotexture. There are no demonstrated solid, cystic or complex lesions. LEFT LOBE: The left lobe of the thyroid gland measures 2.7 x 0.8 x 1.0 cm. There is a homogeneous echotexture. There are no demonstrated solid, cystic or complex lesions. ISTHMUS: The isthmus measures 2 mm thick. . The regional lymph nodes are normal. US/Thyroid IMPRESSION: Normal ultrasound examination of the thyroid. Electronically Signed: Deshawn Paul MD at 7:43 EST Tel , Service support ,
== END ==
PROVIDERS: PCP Nurse Practitioner; Referring Provider Nurse Practitioner; Visit Provider Nurse Practitioner
DX: E03.9 Hypothyroidism, unspecified (principal)
CPT/HCPCS: 76536

== ENCOUNTER → 2020-01-26 14:51 | Outpatient (CLI) | payer MEDICARE, OTHER, SELFPAY ==
[2019-08-07 14:38] VITALS: BMI 31.1
[2020-01-26 14:57] VITALS: BP 135/69; PULSE 73; RESP 16; TEMP 36.3; O2SAT 94; BMI 33.5
[2020-01-26] MEDS: DENOSUMAB 60 MG/ML SQ (14:59)
== END ==
PROVIDERS: Family Provider Nurse Practitioner; PCP Nurse Practitioner; Referring Provider Nurse Practitioner; Visit Provider Nurse Practitioner
DX: M81.0 Age-related osteoporosis without current pathological fracture (principal)
CPT/HCPCS: 96372; J0897

== ENCOUNTER → 2020-07-26 12:50 | Outpatient (CLI) | payer MEDICARE, OTHER, SELFPAY ==
[2019-08-07 14:38] VITALS: BMI 31.1
[2020-01-26 14:57] VITALS: BMI 33.5
[2020-07-26 12:58] VITALS: BP 131/60; PULSE 69; RESP 14; TEMP 36.4; O2SAT 99; BMI 33.3
[2020-07-26] MEDS: DENOSUMAB 60 MG/ML SQ (13:06)
== END ==
PROVIDERS: PCP Nurse Practitioner; Referring Provider Nurse Practitioner; Visit Provider Nurse Practitioner
DX: M81.0 Age-related osteoporosis without current pathological fracture (principal)
CPT/HCPCS: 96372; J0897

== ENCOUNTER 2020-10-09 15:12 | Emergency (ER) | payer MEDICARE, OTHER, SELFPAY ==
[2020-07-26 12:58] VITALS: BMI 33.3
[2020-10-09 15:13] VITALS: BP 149/94; PULSE 80; RESP 17; TEMP 36.4; O2SAT 94; BMI 33.0
--- NOTE | 2020-10-09 15:35 | RAD_ITS ---
STUDY: X-RAY - UNILATERAL RIBS ( LEFT ) WITH CHEST REASON FOR EXAM: Female, 70 years old. left sided rib pain after fall TECHNIQUE - RIBS: 3 view(s) of the ribs. TECHNIQUE - CHEST: PA COMPARISON: None. FINDINGS - RIBS: There is diffuse osteopenia. No demonstrated rib fracture. FINDINGS - CHEST: The lungs are clear and expanded. There is no demonstrated pleural abnormality. Normal size heart. Normal mediastinum and beth. Normal visualized pulmonary arteries. Normal visualized aortic arch and descending thoracic aorta. There is scoliosis of the thoracic and lumbar spine. There is no demonstrated abnormality of the visualized soft tissue structures of the upper abdomen. RAD/Ribs Uni Min 3V w/PA Chest IMPRESSION: RIBS: Osteopenia. No demonstrated rib fractures. CHEST: Nonacute x-ray examination of the chest. Electronically Signed: Stuart Del Toro MD ([place]) at 16:02 EST , Service support ,
--- NOTE | 2020-10-09 15:35 | ED.DCSUM_ITS ---
History of Present Illness Chief Complaint: Chest Other Informant: Patient Onset: Days Context: Sudden Onset Timing: Waxes and wanes Current Severity: Mild Maximum Severity: Moderate Narrative: Patient presents with left lower rib pain. On Saturday she slipped getting out of the tub striking her left lower ribs against the edge of the tub. She has had pain since that time, worse with movement and exertion. She denies significant shortness of breath but does report increased pain with deep breath. She denies any other injury. - Past Medical History (1) GERD (gastroesophageal reflux disease) Status: Chronic (2) Diabetes Status: Chronic (3) Hypertension Status: Chronic (4) Hypothyroid Status: Chronic Past Medical History - Allergies and Home Meds Allergies/Adverse Reactions: Allergies Penicillins Allergy (Verified 10/09/20 15:13) Unknown Primary Care Physician: Juliann Dougherty DONATIONS ATTENDANT, DONATIONS ATTENDANT-C [Primary Care Provider] - Prior records reviewed: Yes Surgical History: total knee arthroplasty - left 12/05/15, tonsillectomy Smoking Status: Current every day smoker - Family History Maternal Family History: Reports: Cancer - in 30's, unknown type Paternal Family History: Reports: No pertinent history - in 70's Review of Systems General: Denies: Chills, Fever Eyes: Denies: Visual changes - bilaterally ENT: Denies: Bilateral ear pain Cardiovascular: Reports: Chest pain - Left lower ribs Respiratory: Denies: Dyspnea, Cough Gastrointestinal: Denies: Abdominal pain, Vomiting, Diarrhea Genitourinary: Denies: Dysuria Musculoskeletal: Denies: Swelling, Extremity Pain Skin: Denies: Rash Hematologic: Denies: Easy bruising, Easy bleeding Allergy: Denies: Uticaria Physical Exam Vital Signs/Narrative: Vital Signs Temp Pulse Resp BP Pulse Ox 10/09/20 15:13 97.5 F L 80 17 149/94 H 94 Inital Vital Signs reviewed: Yes General: Well nourished, Well developed Head: Normocephalic ENT: Moist mucous membranes Neck: Supple Cardiovascular: Regular rate, Regular rhythm Respiratory: No distress, CTA bilaterally, Chest tenderness - Left lower chest wall tenderness. Abdomen: Soft, Nontender Extremities: Nontender Skin: No rash Neurological: Alert, Oriented x3 Psychological: Normal affect Diagnostic/Tx/Re-eval Impressions Ribs w/Chest X-Ray 10/09/20 15:35 IMPRESSION: RIBS: Osteopenia. No demonstrated rib fractures. CHEST: Nonacute x-ray examination of the chest. Electronically Signed: Stuart Del Toro MD ([place]) at 16:02 EST , Service support , 10/09/20 15:35 Ribs Uni Min 3V w/PA Chest [RAD] Stat - Medical Decision Making Chest x-ray with ribs is obtained. Per my interpretation no obvious fracture or pneumothorax. Radiologist interpretation is also reviewed. Test results discussed with the patient. She is reassured with this. She will start taking Tylenol at home to help her pain. She does not want anything stronger than that. ED Disposition - Plan for ED Patient: Disposition: Home or Assisted Living Diagnosis: Rib contusion Instructions: ED Contusion, Rib Referrals: Juliann Dougherty DONATIONS ATTENDANT, DONATIONS ATTENDANT-C [Primary Care Provider] - 1 Week if not improving
[2020-10-09 17:10] VITALS: BP 144/81; PULSE 88; RESP 18; O2SAT 97
== END 2020-10-09 17:11 | disposition home or self-care (01) ==
PROVIDERS: Emergency Provider Emergency Medicine; PCP Nurse Practitioner
DX: S20.219A Contusion of unspecified front wall of thorax, initial encounter (principal); F17.200 Nicotine dependence, unspecified, uncomplicated; W01.198A Fall on same level from slipping, tripping and stumbling with subsequent striking against other object, initial encounter
CPT/HCPCS: 71101; 99282

== ENCOUNTER → 2020-11-23 10:39 | Outpatient (CLI) | payer MEDICARE, OTHER, SELFPAY ==
[2020-07-26 12:58] VITALS: BMI 33.3
--- NOTE | 2020-11-23 10:44 | BI_ITS ---
MAMMOGRAPHY - BILATERAL SCREENING REASON FOR EXAM: Female, 70 years old. Routine annual screening examination. PERTINENT HISTORY: Non-contributory. TECHNIQUE: Digital bilateral breast itzel (3D mammographic acquisition) in the CC and MLO projections. 2-D mediolateral oblique (MLO) and craniocaudad (CC) views of both breasts were obtained. CAD: Full Field Digital Mammography with Computer Added Detection was performed. COMPARISON: Comparison is made with prior study dated 09/22/2019 and 10/02/2018. FINDINGS: Breast Composition: There are scattered areas of fibroglandular density. There are no dominant masses or suspicious calcifications. Benign-appearing bilateral axillary lymph nodes. No other significant abnormalities are identified. There has been no significant change since the prior study. BI/SCRN MAMM (CAD)W/ITZEL BILAT IMPRESSION: Stable bilateral screening mammogram. Yearly follow-up mammogram recommended. (A) ASSESSMENT CATEGORY: BIRADS Category 2: Benign. A letter regarding these results will be sent to the patient by the facility within 30 days. Approximately 10% of breast cancers are not detected by mammography. A normal mammogram should not delay biopsy of a clinically suspicious abnormality. [id number] Electronically Signed: Jose Billy MD at 12:32 EDT , Service support ,
== END ==
PROVIDERS: PCP Nurse Practitioner; Referring Provider Nurse Practitioner; Visit Provider Nurse Practitioner
DX: Z12.31 Encounter for screening mammogram for malignant neoplasm of breast (principal)
CPT/HCPCS: 77063; 77067

== ENCOUNTER → 2020-12-06 15:44 | Outpatient (CLI) | payer MEDICARE, OTHER, SELFPAY ==
[2020-12-06 17:30] LABS: Absolute Lymphocyte Count 2.57 X10^3/uL (0.83-4.51); Absolute Neutrophil Count 7.4 X10^3/uL (2.0-7.7); Basophil# 0.05 X10^3/uL; Basophil% 0.4 % (0-1); Eosinophil# 0.44 X10^3/uL; Eosinophils% 3.8 % (0-5); Hematocrit 45.7 % (37-47); Hemoglobin 14.6 g/dL (12.0-15.0); Lymphocyte # 2.57 X10^3/ul (4.0); Lymphocyte % 22.3 % (19-41); Mean Corp Hgb Conc 31.9 g/dL (32-36); Mean Corpuscular Hgb 30.9 pg (27.0-32.0); Mean Corpuscular Volume 96.6 fL (81-99); Mean Platelet Vol. 11.6 fl (6.2-12.0); Monocyte# 1.04 X10^3/uL; NRBC Flagged by Analyzer 0 % (0-5); Neutrophil # 7.39 X10^3/uL (2.7-7.7); Neutrophil % 64.2 % (47-70); Platelet Count 244 K/mm3 (150-450); RBC Distribution Width CV 13.2 % (11.6-14.6); RBC Distribution Width SD 47.7 fl (35.1-43.9); Red Blood Count 4.73 M/mm3 (4.2-5.4); White Blood Count 11.5 K/mm3 (4.4-11.0)
[2020-12-06 17:47] LABS: Erythrocyte Sedimentation Rate 4 mm/hr (0-30)
[2020-12-06 18:22] LABS: CRP < 2.90 mg/L (0.0-3.0)
== END ==
PROVIDERS: PCP Nurse Practitioner; Referring Provider Physician Assistant; Visit Provider Physician Assistant
DX: Z96.652 Presence of left artificial knee joint (principal)
CPT/HCPCS: 36415; 85025; 85652; 86140

== ENCOUNTER → 2020-12-12 08:28 | Outpatient (CLI) | payer MEDICARE, OTHER, SELFPAY ==
--- NOTE | 2020-12-12 08:34 | NM_ITS ---
CLINICAL: 70-year-old female with reported history of painful left knee arthroplasty. LIMITED 99m Tc MDP THREE PHASE BONE SCINTIGRAPHY COMPARISON: None available FINDINGS: Following the intravenous administration of 25.0 mCi of 99m Tc MDP, three-phase bone acquisitions of the knee articulations reveal: 1. The flow and immediate static blood pool acquisitions demonstrate arterial and venous phase hyperemia manifest in the region of the medial-lateral compartments of the right knee articulation. There is otherwise normal flow and blood pool activity manifest on review of the remaining skeletal structures. 2. Delayed images depict increased tracer uptake observed in the medial-lateral compartments of the right knee corresponding to the flow and blood pool changes. 3. Mildly enhanced tracer uptake is observed in the medial femoral and tibial and lateral tibial components of the symptomatic left knee prosthesis. There is an increase in radiotracer distribution observed in the patellofemoral compartment of the left knee. 4. The remaining limited skeletal structures are scintigraphically unremarkable. NM/Bone Scan Three Phase IMPRESSION: 1. The increase in tracer uptake observed in the medial-lateral compartments of the right knee on the flow, blood pool and late projections is most consistent with synovial inflammation. 2. Facilitated uptake observed in the in the femoral and tibial components of the symptomatic left knee arthroplasty may represent the presence of mild loosening in the setting of operative intervention > 2 years prior to the current presentation. If an infectious etiology is a diagnostic consideration, correlation with labeled leukocyte imaging is recommended. 3. Degenerative arthritis appears expressed in the patellofemoral compartment of the left knee in the absence of patellar hardware placement. Electronically Signed: Deshawn Simeon DO at 22:16 EDT Tel , Service support ,
== END ==
PROVIDERS: PCP Nurse Practitioner; Referring Provider Physician Assistant; Visit Provider Physician Assistant
DX: Z96.652 Presence of left artificial knee joint (principal)
CPT/HCPCS: 78315

== ENCOUNTER → 2021-01-24 12:43 | Outpatient (CLI) | payer MEDICARE, OTHER, SELFPAY ==
[2020-01-26 14:57] VITALS: BMI 33.5
[2021-01-24 12:58] VITALS: BP 149/78; PULSE 72; RESP 16; TEMP 36.6; O2SAT 97; BMI 33.0
[2021-01-24] MEDS: DENOSUMAB 60 MG/ML SC (13:35)
== END ==
PROVIDERS: PCP Nurse Practitioner; Referring Provider Nurse Practitioner; Visit Provider Nurse Practitioner
DX: M81.0 Age-related osteoporosis without current pathological fracture (principal)
CPT/HCPCS: 96372; J0897

== ENCOUNTER 2021-04-12 11:30 | Outpatient (RCR) | payer MEDICARE, OTHER, SELFPAY ==
--- NOTE | 2020-12-28 11:56 | HP.PTEVAL ---
Patient's Visit Information LAISHA DELGADO is a 70 year old F referred to Physical Therapy by Joni Noble PA-C with a diagnosis of Left Knee Pain. Date of Evaluation: 12/28/20 Physical Therapist: Pavithra Gardiner DPT - Visit Plan Frequency: 3x /Week Duration: 3 Weeks Plan: Left Knee Replacement approx 5 years ago- no decreased strength and functional mobility. Focus on LE and core strength/stabilization. HEP Given IE: Quad set, SLR, supine abd, supine add, bridge. - Subjective Patient reports that she has a left knee replacment 5 years ago- and now its bothering her again for about a year. She has no pain in it- it just feels like something hit her in the knee and is swollen up. She comes to the pool for therapy- feels like the knee is really tight and gets irritated. MD put her on Motrin for the swelling which helps. No pain just feels full and weakness. She fell a week ago Saturday- at [employer] onto her knees. She had an x-ray on the knee-and a nuclear bone scan. MD reports no swelling but she feels it. When she stands for long periods of time the leg swells up really big. The swelling and tightness in the calf and all the way to the hip. No N/T in the toes. Patient reports no change in bowel/bladder. No back or hip pain. Has had a STEM cell injection in her right knee 2-3 years ago. Knows her right knee may need replaced at some point. Tries to walk up without using handrail. when she goes down the knee feels tight. Sleep: disturbed due to restless leg. PMHx/Meds: see scanned into chart. - Objective Posture: FH, RS- can correct with verbal cues but does not maintain. Gait: no deviation noted- no AD. Stairs: asc: recip with no HR- slow marita. Desc: recip 2 HR uncontrolled. HR/TR: able with reports of discomfort with TR. SLS: weight shift but unable to SLS without UE A. ROM: 0-115 degrees. Strength: Core: fair minus, Hip: 4/5 throughtout, Knee: 4+/5, Ankle: 5/5. Sit to Stand: 10 in 30 seconds. Girth: Patella Left: 37.5 cm, Right: 39 cm - Goals Goal 1:: Patient will be I with HEP and progression Goal Time Frame: 4-6 Weeks Goal 2:: Patient will asc/desc 8 stairs recip with 1 HR Goal Time Frame: 4-6 Weeks Goal 3:: Patient will perform 15 sit to supervisor lead burning 30 seconds Goal Time Frame: 4-6 Weeks Goal 4:: Patient will report 75% improvement in the knee Goal Time Frame: 4-6 Weeks - Rehabilitation Potential Physical Therapy Diagnosis: Patient presents with hypomobility- she has decreased strength, flex and muscular endurance leading to decreased ability to easily perform ADL's. Rehabilitation Potential: Good - Anticipated Interventions Patient/Client Instruction: Educate patient on: Benefits of Fitness Program Therapeutic Exercise to Include: Strength training, Endurance training, Balance training, Coordination, Agility training, Body mechanics, Postural training, Flexibilty training, Neuromotor development, Dynamic Lumbar Stabilization, Scapular Strength/Stabilization For the Purpose of:: To improve muscle performance and motor function TENS: Yes Cryotherapy (ice pack, ice massage): Yes Thermo therapy (hot pack): Yes Ultrasound (thermal/non thermal): No Thank you for the opportunity to evaluate your patient. For Medicare and Medicare HMO plans, please review the plan of care and approve it. It will need to be FAXED BACK to us at [phone] for Medicare purposes. For Medicare only, by signing this I certify the plan of care. Please let me know if there are questions or concerns regarding this plan of care. Physician Signature: Date:
--- NOTE | 2021-02-07 11:18 | HP.PTREVAL ---
Joni Noble PA-C, It has been my pleasure to treat LAISHA DELGADO over the last 10 visits for Left Knee Pain. Please see the progress note below for an update on the physical therapy plan of care! Subjective: Patient reports that since she started doing PT she is better- she has good days and bad days. Objective/Function: Posture: FH, RS- can correct with verbal cues but does not maintain. Gait: no deviation noted- no AD. Stairs: asc: recip with no HR- slow marita. Desc: recip 1 HR uncontrolled and reports discomfort. HR/TR:able without pain. SLS: 3 seconds. ROM: 0-115 degrees. Strength: Core: fair minus, Hip: 4/5 throughout, Knee: 4+/5, Ankle: 5/5. Sit to Stand: 12 in 30 seconds. Girth: Patella Left: 36.5 cm, Right: 38 cm Plan Plan: 02/07/2021: Continue to progress towards goals with current POC. Left Knee Replacement approx 5 years ago. Focus on LE and core strength/stabilization Goals Goal 1:: Patient will be I with HEP and progression Goal Time Frame: 4-6 Weeks Goal Progress: Progressing Goal 2:: Patient will asc/desc 8 stairs recip with 1 HR Goal Time Frame: 4-6 Weeks Goal Progress: Progressing Goal 3:: Patient will perform 15 sit to enrobing machine corder 30 seconds Goal Time Frame: 4-6 Weeks Goal Progress: Progressing Goal 4:: Patient will report 75% improvement in the knee Goal Time Frame: 4-6 Weeks Goal Progress: Progressing Anticipated Interventions Patient/Client Instruction: Educate patient on: Benefits of Fitness Program Therapeutic Exercise to Include: Strength training, Endurance training, Balance training, Coordination, Agility training, Body mechanics, Postural training, Flexibilty training, Neuromotor development, Dynamic Lumbar Stabilization, Scapular Strength/Stabilization For the Purpose of:: To improve muscle performance and motor function TENS: Yes Cryotherapy (ice pack, ice massage): Yes Thermo therapy (hot pack): Yes Ultrasound (thermal/non thermal): No Please do not hesitate to contact me at [phone] by phone or if you have questions or concerns regarding this new plan of care! Sincerely, Pavithra Gardiner DPT
--- NOTE | 2021-03-20 12:06 | HP.PTREVAL ---
Joni Noble PA-C, It has been my pleasure to treat LAISHA DELGADO over the last 18 visits for Left Knee Pain. Please see the progress note below for an update on the physical therapy plan of care! Subjective: Patient reports that she is better but not there yet- she had a cortisone injection a few weeks ago which helped but is not taking the Motrin as suggested by the MD Objective/Function: Posture: FH, RS- can correct with verbal cues but does not maintain. Gait: no deviation noted- no AD. Stairs: asc: recip with no HR- slow marita and pushes off with the right more than left. Desc: recip 1 HR decreased control and reports discomfort. HR/TR:able without pain. SLS: 5 seconds. ROM: 0-115 degrees. Strength: Core: fair minus, Hip: 4/5 throughout, Knee: 4+/5, Ankle: 5/5. Sit to Stand: 13 in 30 seconds. Plan Plan: 03/20/2021: Focus on functional mobility of increased ambulation and stairs- prefers manual quad stretch. Continue to progress towards goals with current POC. Left Knee Replacement approx 5 years ago. Focus on LE and core strength/stabilization Goals Goal 1:: Patient will be I with HEP and progression Goal Time Frame: 4-6 Weeks Goal Progress: Progressing Goal 2:: Patient will asc/desc 8 stairs recip with 1 HR Goal Time Frame: 4-6 Weeks Goal Progress: Progressing Goal 3:: Patient will perform 15 sit to marketing services manager 30 seconds Goal Time Frame: 4-6 Weeks Goal Progress: Progressing Goal 4:: Patient will report 75% improvement in the knee Goal Time Frame: 4-6 Weeks Goal Progress: Progressing Anticipated Interventions Patient/Client Instruction: Educate patient on: Benefits of Fitness Program Therapeutic Exercise to Include: Strength training, Endurance training, Balance training, Coordination, Agility training, Body mechanics, Postural training, Flexibilty training, Neuromotor development, Dynamic Lumbar Stabilization, Scapular Strength/Stabilization For the Purpose of:: To improve muscle performance and motor function TENS: Yes Cryotherapy (ice pack, ice massage): Yes Thermo therapy (hot pack): Yes Ultrasound (thermal/non thermal): No Please do not hesitate to contact me at [phone] by phone or if you have questions or concerns regarding this new plan of care! Sincerely, STORMY JhaT
--- NOTE | 2021-04-12 11:49 | HP.PTDCSUM_ITS ---
It has been my pleasure to treat LAISHA DELGADO referred by Joni Noble PA-C, with the diagnosis of Left Knee Pain for a total of 24 visit(s). Discharge Date: Please see the following information for a summary of their discharge status. Subjective: Patient reports that she is much better but she still has stiffness. left knee Pain Intensity (Out of 10): 0 % Improvement: 80 Objective/Function: Posture: FH, RS- can correct with verbal cues but does not maintain. Gait: no deviation noted- no AD. Stairs: asc/desc no deviation noted. HR/TR:able without pain. SLS: 15 seconds. ROM: 0-115 degrees. Strength: Core: fair minus, Hip: 4+/5 throughout, Knee: 5/5, Ankle: 5/5. Sit to Stand: 15 in 30 seconds. Goal 1:: Patient will be I with HEP and progression Goal Progress: Goal Met Goal 2:: Patient will asc/desc 8 stairs recip with 1 HR Goal Progress: Goal Met Goal 3:: Patient will perform 15 sit to interlibrary loan services librarian 30 seconds Goal Progress: Goal Met Goal 4:: Patient will report 75% improvement in the knee Goal Progress: Goal Met Plan: 04/12/2021: Discharge to home exercise program If there are questions or concerns regarding this patient's physical therapy, please feel free to call me at [phone]. Thank you for the referral of this patient. Sincerely, Pavithra Gardiner, DPT Balance/Gait/Functional tests - Balance/Special Test Scores Lower Extremity Functional Score: 54
== END 2021-04-12 19:00 | disposition home or self-care (01) ==
LOC: PT 11:30
PROVIDERS: PCP Nurse Practitioner; Referring Provider Physician Assistant; Visit Provider Physician Assistant
DX: Z47.1 Aftercare following joint replacement surgery (principal); Z96.652 Presence of left artificial knee joint
CPT/HCPCS: 97110; 97161; 97164

== ENCOUNTER → 2021-08-01 13:01 | Outpatient (CLI) | payer MEDICARE, OTHER, SELFPAY ==
[2021-08-01 13:18] VITALS: BP 132/79; PULSE 67; RESP 16; TEMP 36.6; O2SAT 97
[2021-08-01] MEDS: DENOSUMAB 60 MG/ML SC (13:21)
== END ==
PROVIDERS: PCP Nurse Practitioner; Referring Provider Nurse Practitioner; Visit Provider Nurse Practitioner
DX: M81.0 Age-related osteoporosis without current pathological fracture (principal)
CPT/HCPCS: 96372; J0897

== ENCOUNTER 2021-11-27 20:56 | Emergency (ER) | payer MEDICARE, OTHER, SELFPAY ==
[2021-11-27 20:57] VITALS: BP 183/86; PULSE 98; RESP 18; TEMP 36.6; O2SAT 98; BMI 32.3
--- NOTE | 2021-11-27 22:01 | EX.ED.DYSGE1 ---
HPI History of Present Illness Chief Complaint: Other, Pain/Inj Informant: patient Onset/Context/Timing Onset: Today Narrative Narrative: Patient present secondary to bleeding from varicose vein on her right leg. She states she went to the bathroom earlier when she lowered her pants noted blood along her right leg. She is able to get it cleaned up and noticed a source of bleeding from a small varicose vein on the lateral portion of her right knee. Bleeding is currently controlled. She states has never had problems like this before. PFSH PFS Medical History Diabetes GERD (gastroesophageal reflux disease) Hypertension Hypothyroid Osteoarthritis Home Medications amlodipine 10 mg PO DAILY 06/11/17 [History Last Taken Unknown] escitalopram oxalate 10 mg PO DAILY 06/11/17 [History Last Taken Unknown] levothyroxine 100 mcg PO DAILY 06/11/17 [History Last Taken Unknown] oxybutynin chloride [Ditropan Xl] 10 mg PO DAILY 06/11/17 [History Last Taken Unknown] denosumab [Prolia] 60 mg SQ .[id number] 11/16/18 [History Last Taken Unknown] estradiol [Yuvafem] 10 mcg VG .TWICEAWEEK 11/16/18 [History Last Taken Unknown] metformin 500 mg PO DAILY 11/16/18 [History Last Taken Unknown] bevacizumab [Avastin] 25 mg 11/27/21 [History Last Taken Unknown] Allergy/AdvReac Type Severity Reaction Status Date / Time Penicillins Allergy Unknown Verified 11/27/21 20:59 Surgical History Status post total left knee replacement Social History Smoking Status: Never smoker ROS ROS ED Constitutional Constitutional ED: Denies chills or fever(s) Eyes Eyes: Denies change in vision ENT ENT ED: Denies sore throat Cardiovascular Cardiovascular: Denies chest pain Respiratory/Chest Respiratory/Chest: Denies cough or dyspnea Gastrointestinal Gastrointestinal: Denies abdominal pain, nausea or vomiting Musculoskeletal Musculoskeletal: Denies back pain Integumentary Reports other Details: Bleeding from varicose vein ; Denies rash Neurologic Neurologic: Denies headache(s) or weakness Allergic/Immunologic Allergic/Immunologic ED: Denies urticaria EXAM Physical Exam Const Vital Signs: 11/27/21 20:57 11/27/21 22:09 Temperature 97.9 F Temperature Source Temporal Pulse Rate 98 Respiratory Rate 18 16 Blood Pressure 183/86 H Blood Pressure Mean 118 Pulse Ox 98 Oxygen Delivery Method Room Air Positive well nourished and well developed General Appearance ED: well developed HEENT Reports moist mucous membranes Eyes PERRL and EOMs intact bilaterally Neck supple Chest Wall inspection of chest normal and palpation of chest normal Resp normal respiratory effort and clear to auscultation bilaterally Cardio regular rate and regular rhythm Extremity Extremity Narrative: Small scab noted along the lateral right knee over the spider vein. No calf tenderness or edema. Strong distal pulses. Neuro oriented x3 Sensorium / Orientation: alert Psych mental status grossly normal MDM MDM Treatment and Re-Evaluation Narrative: Surgifoam placed over the wound with dressing. Patient ambulated up and down the hallways with no further bleeding. Wound care instructions provided. Discharge Plan Triage Chief Complaint: Other, Pain/Inj ED Provider: Arminda Yancey Dx/Rx/DC Orders Clinical Impression: Varicose vein of leg Instructions: ED Varicose Veins Prescriptions: No Action levothyroxine 100 MCG tablet 100 mcg PO DAILY RF: 0 amlodipine 10 MG tablet 10 mg PO DAILY RF: 0 escitalopram oxalate 10 MG tablet 10 mg PO DAILY RF: 0 oxybutynin chloride [Ditropan XL] 10 MG tablet extended release 24hr 10 mg PO DAILY RF: 0 metformin 500 MG tablet 500 mg PO DAILY RF: 0 estradiol [Yuvafem] 10 MCG tablet 10 mcg VG .TWICEAWEEK RF: 0 Prolia 60 MG/ML syringe 60 mg SQ .[id number] RF: 0 Avastin 25 mg/mL Solution 25 mg RF: 0 Primary Care Provider: Juliann Dougherty NP Referrals: Juliann Dougherty ELECTROCARDIOGRAPHIC TECHNICIAN, ELECTROCARDIOGRAPHIC TECHNICIAN-C [Primary Care Provider] - As Needed Disposition Disposition: Home, Self Care Discharge Date/Time: 11/27/21 22:10
[2021-11-27 22:09] VITALS: RESP 16
== END 2021-11-27 22:10 | disposition home or self-care (01) ==
PROVIDERS: Emergency Provider Emergency Medicine; PCP Nurse Practitioner; Visit Provider Emergency Medicine
DX: I83.891 Varicose veins of right lower extremity with other complications (principal); E11.9 Type 2 diabetes mellitus without complications; I10 Essential (primary) hypertension; E03.9 Hypothyroidism, unspecified; M19.90 Unspecified osteoarthritis, unspecified site; Z79.84 Long term (current) use of oral hypoglycemic drugs; Z79.899 Other long term (current) drug therapy
CPT/HCPCS: 99282

== ENCOUNTER 2021-12-04 13:03 | Outpatient (CLI) | payer MEDICARE, OTHER, SELFPAY ==
--- NOTE | 2021-12-04 13:07 | BI_ITS ---
MAMMOGRAPHY - BILATERAL SCREENING REASON FOR EXAM: Female, 71 years old. Routine annual screening examination. PERTINENT HISTORY: Non-contributory. TECHNIQUE: Digital bilateral breast itzel (3D mammographic acquisition) in the CC and MLO projections. 2-D mediolateral oblique (MLO) and craniocaudad (CC) views of both breasts were obtained. CAD: Full Field Digital Mammography with Computer Added Detection was performed. COMPARISON: Comparison is made with prior examination of 11/23/2020 and 09/22/2019. FINDINGS: Breast Composition: There are scattered areas of fibroglandular density. There are no dominant masses or suspicious calcifications. No other significant abnormalities are identified. There has been no significant change since the prior study. BI/SCRN MAMM (CAD)W/ITZEL BILAT IMPRESSION: Stable bilateral screening mammogram. Yearly follow-up mammogram recommended. (A) ASSESSMENT CATEGORY: BIRADS Category 1: Negative. A letter regarding these results will be sent to the patient by the facility within 30 days. Approximately 10% of breast cancers are not detected by mammography. A normal mammogram should not delay biopsy of a clinically suspicious abnormality. [id number] Electronically Signed: Jose Billy MD at 14:30 EDT ,
== END 2021-12-04 23:59 | disposition home or self-care (01) ==
LOC: OPBI 13:04
PROVIDERS: Referring Provider Nurse Practitioner; Visit Provider Nurse Practitioner
DX: Z12.31 Encounter for screening mammogram for malignant neoplasm of breast (principal)
CPT/HCPCS: 77063; 77067

== ENCOUNTER 2021-12-30 17:51 | Emergency (ER) | payer MEDICARE, OTHER, SELFPAY ==
[2021-12-30 17:51] VITALS: BP 143/75; PULSE 106; RESP 18; TEMP 37; O2SAT 96; BMI 31.8
[2021-12-30] MEDS: Ibuprofen 200 MG Tablet 400 MG PO (18:32)
--- NOTE | 2021-12-30 18:39 | RAD_ITS ---
STUDY: X-RAY - RIGHT KNEE REASON FOR EXAM: Female, 71 years old. pain/injury TECHNIQUE: 3 view(s) of the knee. COMPARISON: None. FINDINGS: Normal visualized distal femur. Normal visualized proximal tibia and fibula. Normal proximal tibiofibular articulation. There is mild degenerative arthrosis of the medial femorotibial compartment. Normal lateral femorotibial compartment. There is moderate degenerative arthrosis of the patellofemoral articulation. There is no demonstrated joint effusion. The soft tissue structures are unremarkable. RAD/Knee 4 or More Views IMPRESSION: No fracture or malalignment. Small joint effusion. Electronically Signed: Stuart Del Toro MD (Brooks) at 19:10 EDT Reading Location ID and State: [facility] / [place] , Service support ,
--- NOTE | 2021-12-30 19:16 | ED.VIS.LOWEX ---
HPI History of Present Illness Chief Complaint: Lower Extremity Injury Informant: patient Onset/Context/Timing Onset: Today Context: Gradual Onset (of pain after injury) Timing: Continuous Quality of Pain: Aching Location: R knee Current Severity: Moderate Maximum Severity: Moderate Worsened by: Bearing weight, bending right knee Relieved by: Remaining still Associated Symptoms Associated Symptoms: Positive for Loss of Funtion (Difficulty walking on it but able); Negative for Parasthesia and Weakness Narrative Narrative: Patient states she was on a stool trying to reach something high in one of her cabinets, and the stool tilted and almost fell, she was fell off of it but caught her self, and she thinks she twisted her right lower extremity but unsure exactly what mechanism. She then was okay and did not have immediate pain but had delayed onset of pain in her right knee, and some mild swelling. Now she is having difficulty walking on it. This all happened today. She denies any other injury. [facility] Medical History Diabetes GERD (gastroesophageal reflux disease) Hypertension Hypothyroid Osteoarthritis Home Medications amlodipine 10 mg PO DAILY 06/11/17 [History Last Taken Unknown] escitalopram oxalate 10 mg PO DAILY 06/11/17 [History Last Taken Unknown] levothyroxine 100 mcg PO DAILY 06/11/17 [History Last Taken Unknown] oxybutynin chloride [Ditropan Xl] 10 mg PO DAILY 06/11/17 [History Last Taken Unknown] denosumab [Prolia] 60 mg SQ .[id number] 11/16/18 [History Last Taken Unknown] estradiol [Yuvafem] 10 mcg VG .TWICEAWEEK 11/16/18 [History Last Taken Unknown] metformin 500 mg PO DAILY 11/16/18 [History Last Taken Unknown] bevacizumab [Avastin] 25 mg 11/27/21 [History Last Taken Unknown] tramadol 50 mg PO Q6H PRN 3 Days #12 tab 12/30/21 [Rx Last Taken Unknown] Allergy/AdvReac Type Severity Reaction Status Date / Time Penicillins Allergy Unknown Verified 12/30/21 17:54 Surgical History Status post total left knee replacement Social History Smoking Status: Never smoker ROS ROS ED Constitutional Constitutional ED: Denies chills or fever(s) Musculoskeletal Musculoskeletal: Reports extremity pain; Denies neck pain Integumentary Denies Abrasions, rash or wounds Neurologic Neurologic: Denies paresthesias or weakness EXAM Physical Exam Const Vital Signs: 12/30/21 17:51 Temperature 98.6 F Temperature Source Temporal Pulse Rate 106 H Respiratory Rate 18 Blood Pressure 143/75 H Blood Pressure Mean 97 Pulse Ox 96 Oxygen Delivery Method Room Air Positive well nourished and well developed General Appearance ED: well developed and NAD Neck full ROM and supple Back/Spine normal ROM and normal to inspection Extremity normal to inspection Extremity Narrative: Mild swelling/effusion right knee. Skin intact. Mildly tender medial joint line area. Able to straighten, her extensor mechanism is intact, limited range of motion due to pain and swelling, able to bend to almost 90 degrees. All ligaments stable and without laxity on stressing including negative Donna and negative posterior drawer sign. 2+/4 dorsalis pedis pulse. Neuro oriented x3, no focal motor deficits and no sensory deficits noted Sensorium / Orientation: alert Psych mental status grossly normal and thought process normal Skin no wounds Rashes: no rashes MDM MDM MDM Narrative Medical decision making narrative: 4 view x-ray series of the right knee mitral rotation shows history of arthritis but nothing acute. Radiology in agreement adding that there is a small effusion. Patient was given ibuprofen in addition to an ice pack, and then an Ghulam wrap with crutches to go home with. Will recommend follow-up with orthopedics. She states she has had issues with this knee in the past and had a stem cell injection by her PCP but has never seen orthopedics so she was referred to the on-call. As I discussed with the patient here the differential includes simple strain, sprain of the ligament, in addition to meniscus injury. Radiography Diagnostic Testing: Clinical Impression(s) from Imaging Studies Knee X-Ray 12/30/21 18:39 IMPRESSION: No fracture or malalignment. Small joint effusion. Electronically Signed: Stuart Del Toro MD (Brooks) at 19:10 EDT Reading Location ID and State: [facility] / [place] , Service support , Discharge Plan Triage Chief Complaint: Lower Extremity Injury ED Provider: Humphrey Barrera Dx/Rx/DC Orders Clinical Impression: Right knee sprain Instructions: ED Knee Sprain Prescriptions: New tramadol 50 MG tablet 50 mg PO Q6H PRN (Reason: pain) 3 Days Qty: 12 RF: 0 No Action levothyroxine 100 MCG tablet 100 mcg PO DAILY RF: 0 amlodipine 10 MG tablet 10 mg PO DAILY RF: 0 escitalopram oxalate 10 MG tablet 10 mg PO DAILY RF: 0 oxybutynin chloride [Ditropan XL] 10 MG tablet extended release 24hr 10 mg PO DAILY RF: 0 metformin 500 MG tablet 500 mg PO DAILY RF: 0 estradiol [Yuvafem] 10 MCG tablet 10 mcg VG .TWICEAWEEK RF: 0 Prolia 60 MG/ML syringe 60 mg SQ .[id number] RF: 0 Avastin 25 mg/mL Solution 25 mg RF: 0 Primary Care Provider: Juliann Dougherty NP Referrals: Hunter Fabian DO [STAFF PHYSICIAN] - 1-2 Weeks Juliann Dougherty NP, LINE MAINTENANCE TECHNICIAN-C [Primary Care Provider] - Disposition Disposition: Home, Self Care
== END 2021-12-30 19:47 | disposition home or self-care (01) ==
PROVIDERS: Emergency Provider Emergency Medicine; PCP Nurse Practitioner; Visit Provider Emergency Medicine
DX: S83.91XA Sprain of unspecified site of right knee, initial encounter (principal); E11.9 Type 2 diabetes mellitus without complications; W08.XXXA Fall from other furniture, initial encounter; Y93.89 Activity, other specified; Y99.8 Other external cause status; I10 Essential (primary) hypertension; E03.9 Hypothyroidism, unspecified; Z79.84 Long term (current) use of oral hypoglycemic drugs; Z79.899 Other long term (current) drug therapy
CPT/HCPCS: 73564; 99284

== ENCOUNTER → 2022-01-17 | Outpatient (CLI) | payer MEDICARE, OTHER, SELFPAY ==
[2022-01-17 18:05] LABS: Creatinine, Serum 0.71 mg/dL (0.55-1.02); EST Glomerular Filtration Rate 87 mL/min (>60); Est Glom Filt Rate - Afr Amer 105 mL/min (>60)
== END | disposition home or self-care (01) ==
LOC: MTLAB 14:54
PROVIDERS: PCP Nurse Practitioner; Referring Provider Orthopaedic Surgery; Visit Provider Orthopaedic Surgery
DX: E11.9 Type 2 diabetes mellitus without complications (principal)
CPT/HCPCS: 36415; 82565

== ENCOUNTER → 2022-01-30 | Outpatient (CLI) | payer MEDICARE, OTHER, SELFPAY ==
[2022-01-30 12:54] VITALS: BP 146/73; PULSE 75; RESP 12; TEMP 36.2; O2SAT 96; BMI 32.3
[2022-01-30] MEDS: DENOSUMAB 60 MG/ML SC (13:03)
== END | disposition home or self-care (01) ==
LOC: MEDOUTP 12:47
PROVIDERS: PCP Nurse Practitioner; Referring Provider Nurse Practitioner; Visit Provider Nurse Practitioner
DX: M81.0 Age-related osteoporosis without current pathological fracture (principal)
CPT/HCPCS: 96372; J0897

== ENCOUNTER → 2022-06-28 | Outpatient (CLI) | payer MEDICARE, OTHER, SELFPAY ==
--- NOTE | 2022-06-28 09:10 | US_ITS ---
STUDY: ULTRASOUND TRANSVAGINAL CLINICAL: Female, 72 years old. DYSPAREUNIA , BLEEDING TECHNIQUE: Transvaginal COMPARISON: None. FINDINGS: Normal uterine size measuring 6.2 cm in maximal craniocaudal dimension. There are no myometrial masses. Normal endometrial thickness measuring 2 mm. There are no endometrial masses, but there is fluid in the endometrial cavity. Normal uterine cervix. Normal right ovary, measuring 1.9 x 1.5 x 1.0 cm. There are multiple follicles without a dominant cyst. Left ovary not visualized. There is no free fluid in the pelvis. US/Pelvic (Non ) IMPRESSION: Although the endometrial thickness is normal for age, the endometrium contains anechoic fluid, likely hemorrhage, short-term follow-up is recommended to assess stability or resolution No suspicious adnexal mass or free fluid Electronically Signed: Brodie East MD at 12:39 EDT ,
--- NOTE | 2022-06-28 10:11 | BD_ITS ---
STUDY: DUAL ENERGY X-RAY ABSORPTIOMETRY / DXA REASON FOR EXAM: Female, 72 years old. M810 TECHNIQUE: Bone Mineral Density (BMD) measurements of lumbar spine and bilateral hips were obtained. COMPARISON: Comparison is made with prior study dated 04/01/2019. FINDINGS: Lumbar Spine (L1-L4): g/cm2 (0.871) / T-score (-1.9) / Z-score (0.3) Findings are suggestive of osteopenia with a moderate fracture risk. Left Femur Total: g/cm2 (0.694) / T-score (-2.0) / Z-score (-0.5) Left Femoral Neck: g/cm2 (0.575) / T-score (-2.5) / Z-score (-0.7) Right Femur Total: g/cm2 (0.758) / T-score (-1.5) / Z-score (0.0) Right Femoral Neck: g/cm2 (0.740) / T-score (-1.0) / Z-score (0.8) The T-Scores on the most recent prior examination were: Lumbar Spine (L1-L4): There has been worsening of bone density since the previous examination. Left Femur Total: which represents an improvement of 7.4%. Right Femur Total: which represents an improvement of 70%. BD/Dexa Bone Density Study IMPRESSION: The patient is considered osteopenic as outlined below according to World Oneil Organization (WHO) criteria with a high fracture risk. There has been improvement of bone density since the previous examination. Reference Information: The T-score is the number of standard deviations above or below the standard which is normal for young adults at their peak bone mineral density. The World Health Organization (WHO) interprets the T-scores as follows: Above -1 Normal bone density Between -1 and -2.5 Osteopenia Equal to / or below -2.5 Osteoporosis As a practical clinical guideline, osteopenia may be graded as follows: Mild -1 through -1.5 Moderate -1.6 through -2.0 Severe -2.1 through -2.4 The Z-score is the number of standard deviations above or below age-matched controls. A Z-score of less than -1.5 would be considered abnormal. References: 1. NIH Osteoporosis and Related Bone Diseases www osteo.org 2. International Society for Clinical Densitometry www iscd.org 3. National Osteoporosis Foundation www nof.org Electronically Signed: Jose Billy MD at 13:45 EDT ,
== END | disposition home or self-care (01) ==
LOC: US 09:07
PROVIDERS: PCP Nurse Practitioner Family; Referring Provider Nurse Practitioner Family; Visit Provider Nurse Practitioner Family
DX: N94.10 Unspecified dyspareunia (principal); M81.0 Age-related osteoporosis without current pathological fracture
CPT/HCPCS: 76830; 76856; 77080

== ENCOUNTER 2022-07-16 11:30 | Outpatient (RCR) | payer MEDICARE, OTHER, SELFPAY ==
--- NOTE | 2022-06-20 15:16 | HP.PTEVAL ---
Patient's Visit Information LAISHA DELGADO is a 72 year old F referred to Physical Therapy by Alexi Samayoa PA-C with a diagnosis of Bilateral Knee Pain. Date of Evaluation: 06/20/22 Physical Therapist: Pavithra Gardiner DPT - Visit Plan Frequency: 2x /Week Duration: 4 Weeks Plan: Left Knee Replacement approx 5 years ago- no decreased strength and functional mobility. Focus on LE and core strength/stabilization. - Subjective Patient reports that she fell off a ladder at the end of December. Left knee replacement is loose and needs a revision but she doesn't want to have another surgery, and her right is bone on bone. The left knee she does not have pain with it, it just feels swollen. She went to the [facility] and both of her legs hurt like a toothache. She took her knee braces on and they really helped. She feels like she has two weights in her knees. Right leg feels swollen and heavy when she stands on it for long periods of time. She was put on Meloxicam and she reported it was helping a lot but was told by her PCP to stop taking it and switch to Tylenol due to the issues with stomach ulcers. She has had PT here before and felt that it helped to have her knees stretched. She does not have pain just stiffness and swelling on both sides. PMHx/Meds: see from otho visit- no changes except stopped Meloxicam. - Objective Posture: FH, RS- can correct with verbal cues but does not maintain. Gait: slight deviation in gait pattern- decreased marita. Stairs: asc: recip with 1 HR- slow marita. Desc: non recip 2 HR uncontrolled. HR/TR: able with reports of discomfort with TR. SLS: weight shift but unable to SLS. ROM: 0-115 degrees bilateral. Strength: Core: fair minus, Hip: 4/5 throughtout, Knee: 4+/5, Ankle: 5/5. Girth: Patella Left: 41.5 cm, Right: 42.5 cm - Balance/Special Test Scores Lower Extremity Functional Score: 46 - Goals Goal 1:: Patient will be I with HEP and progression Goal Time Frame: 4-6 Weeks Goal 2:: Patient will maintain proper posture t/o tx sessin Goal Time Frame: 4-6 Weeks Goal 3:: Patient will asc/desc 8 stairs recip Goal Time Frame: 4-6 Weeks Goal 4:: Patient will report 80% improvement Goal Time Frame: 4-6 Weeks - Rehabilitation Potential Physical Therapy Diagnosis: Patient presents with hypomobility- she has decreased strength, flex and muscular endurance leading to decreased ability to easily perform ADL's. Rehabilitation Potential: Fair - Anticipated Interventions Patient/Client Instruction: Educate patient on: Benefits of Fitness Program Therapeutic Exercise to Include: Strength training, Endurance training, Balance training, Body mechanics, Postural training, Flexibilty training, Gait and locomotor training, Dynamic Lumbar Stabilization, Scapular Strength/Stabilization For the Purpose of:: To improve muscle performance and motor function Thank you for the opportunity to evaluate your patient. For Medicare and Medicare HMO plans, please review the plan of care and approve it. It will need to be FAXED BACK to us at [phone] for Medicare purposes. For Medicare only, by signing this I certify the plan of care. Please let me know if there are questions or concerns regarding this plan of care. Physician Signature: Date:
--- NOTE | 2022-07-16 12:25 | HP.PTDCSUM ---
It has been my pleasure to treat LAISHA DELGADO referred by Alexi Samayoa PA-C, with the diagnosis of Bilateral Knee Pain for a total of 7 visit(s). Discharge Date: Please see the following information for a summary of their discharge status. Subjective: She plans to go have her left knee done after Kevin. She feels that she is getting stronger but her knees are not a ton better. Today they just feel full L knee Pain Intensity (Out of 10): 0 % Improvement: 50 Objective/Function: Posture: FH, RS- can correct with verbal cues but does not maintain. Gait: no deviation noted Stairs: asc: recip with 1 HR Desc: non recip 2 HR uncontrolled. HR/TR: able with reports of discomfort with TR. SLS: weight shift but unable to SLS. ROM: 0-115 degrees bilateral. Strength: Core: fair minus, Hip: 4+/5 throughout, Knee: 4+/5, Ankle: 5/5. Goal 1:: Patient will be I with HEP and progression Goal 2:: Patient will maintain proper posture t/o tx sessin Goal 3:: Patient will asc/desc 8 stairs recip Goal 4:: Patient will report 80% improvement Plan: 07/16/22: Discharge- perform I HEP. Left Knee Replacement approx 5 years ago- no decreased strength and functional mobility. Focus on LE and core strength/stabilization. If there are questions or concerns regarding this patient's physical therapy, please feel free to call me at [phone]. Thank you for the referral of this patient. Sincerely, Pavithra Gardiner, DPT Balance/Gait/Functional tests - Balance/Special Test Scores Lower Extremity Functional Score: 61
== END 2022-07-16 12:37 | disposition home or self-care (01) ==
LOC: PT 11:30
PROVIDERS: PCP Nurse Practitioner Family; Referring Provider Physician Assistant Surgical; Visit Provider Physician Assistant Surgical
DX: M17.11 Unilateral primary osteoarthritis, right knee (principal); Z96.652 Presence of left artificial knee joint
CPT/HCPCS: 97110; 97162; 97164

== ENCOUNTER → 2022-07-30 | Outpatient (CLI) | payer MEDICARE, OTHER, SELFPAY ==
[2022-08-07 16:07] LABS: HPV Reflexed? NOT INDICATED
== END | disposition home or self-care (01) ==
LOC: OPBI 12:27
PROVIDERS: PCP Nurse Practitioner Family; Visit Provider Obstetrics & Gynecology
DX: Z12.4 Encounter for screening for malignant neoplasm of cervix (principal)
CPT/HCPCS: 88175; G0145

== ENCOUNTER → 2022-07-31 | Outpatient (CLI) | payer MEDICARE, OTHER, SELFPAY ==
[2022-07-31 13:15] VITALS: BP 109/89; PULSE 87; RESP 16; TEMP 36.8; O2SAT 97; BMI 32.3
[2022-07-31] MEDS: DENOSUMAB 60 MG/ML SC (13:18)
== END | disposition home or self-care (01) ==
LOC: MEDOUTP 12:50
PROVIDERS: PCP Nurse Practitioner Family; Referring Provider Nurse Practitioner; Visit Provider Nurse Practitioner
DX: M81.0 Age-related osteoporosis without current pathological fracture (principal)
CPT/HCPCS: 96372; J0897

== ENCOUNTER → 2022-08-13 | Outpatient (CLI) | payer MEDICARE, OTHER, SELFPAY ==
--- NOTE | 2022-08-13 11:19 | US_ITS ---
STUDY: ULTRASOUND TRANSVAGINAL CLINICAL: Female, 72 years old. Fluid in endometrium TECHNIQUE: Transvaginal with Doppler COMPARISON: June 28, 2022 ultrasound pelvis FINDINGS: Normal uterine size measuring 5.1 x 3.9 x 2.4 cm in maximal craniocaudal dimension. Uterus is mildly inhomogeneous noting calcifications. Normal endometrial thickness measuring 4 mm. There are no endometrial masses, however there is trace fluid in the endometrial cavity measuring 0.7 x 0.17 cm. This is stable when compared to the prior study. Within the lower uterine segment there is a visualized hypoechoic mass measuring 1.3 x 1.0 x 1.1 cm compatible with a small fibroid stable since prior study. Normal uterine cervix. Normal right ovary, measuring 1.7 x 1.1 x 1.0 cm. There are multiple follicles without a dominant cyst. No torsion. Limited visualization of the left ovary. The left ovary is partially visualized measuring 1.2 x 1.3 cm. There is no visualized torsion. There is no visualized mass or cyst. There is no free fluid in the pelvis. Polycystic ovary disease: No. US/Transvaginal Non- IMPRESSION: Stable appearing uterus. There is a small amount of fluid within the endometrium at the level of the fundus. This may be associated with a stenotic or sclerotic endometrium distal to the fundal portion. Recommend continued follow-up. There is no visualized laryngeal mass. There is a stable uterine fibroid measuring 1.3 x 1.2 x 1.1 cm. No visualized torsion. Limited visualization of the left adnexa. Electronically Signed: Opal Gonzalez MD at 16:57 EST ,
--- NOTE | 2022-08-13 11:19 | US_ITS ---
STUDY: ULTRASOUND TRANSVAGINAL CLINICAL: Female, 72 years old. Fluid in endometrium TECHNIQUE: Transvaginal with Doppler COMPARISON: June 28, 2022 ultrasound pelvis FINDINGS: Normal uterine size measuring 5.1 x 3.9 x 2.4 cm in maximal craniocaudal dimension. Uterus is mildly inhomogeneous noting calcifications. Normal endometrial thickness measuring 4 mm. There are no endometrial masses, however there is trace fluid in the endometrial cavity measuring 0.7 x 0.17 cm. This is stable when compared to the prior study. Within the lower uterine segment there is a visualized hypoechoic mass measuring 1.3 x 1.0 x 1.1 cm compatible with a small fibroid stable since prior study. Normal uterine cervix. Normal right ovary, measuring 1.7 x 1.1 x 1.0 cm. There are multiple follicles without a dominant cyst. No torsion. Limited visualization of the left ovary. The left ovary is partially visualized measuring 1.2 x 1.3 cm. There is no visualized torsion. There is no visualized mass or cyst. There is no free fluid in the pelvis. Polycystic ovary disease: No. US/Pelvic (Non ) IMPRESSION: Stable appearing uterus. There is a small amount of fluid within the endometrium at the level of the fundus. This may be associated with a stenotic or sclerotic endometrium distal to the fundal portion. Recommend continued follow-up. There is no visualized laryngeal mass. There is a stable uterine fibroid measuring 1.3 x 1.2 x 1.1 cm. No visualized torsion. Limited visualization of the left adnexa. Electronically Signed: Oapl Gonzalez MD at 16:57 EST ,
== END | disposition home or self-care (01) ==
LOC: US 11:18
PROVIDERS: PCP Nurse Practitioner Family; Referring Provider Obstetrics & Gynecology; Visit Provider Obstetrics & Gynecology
DX: N85.9 Noninflammatory disorder of uterus, unspecified (principal)
CPT/HCPCS: 76830; 76856

== ENCOUNTER → 2022-12-06 | Outpatient (CLI) | payer MEDICARE, OTHER, SELFPAY ==
--- NOTE | 2022-12-06 10:49 | BI_ITS ---
MAMMOGRAPHY - BILATERAL SCREENING REASON FOR EXAM: Female, 72 years old. Routine annual screening examination. PERTINENT HISTORY: Non-contributory. TECHNIQUE: Digital bilateral breast itzel (3D mammographic acquisition) in the CC and MLO projections. 2-D mediolateral oblique (MLO) and craniocaudad (CC) views of both breasts were obtained. CAD: Full Field Digital Mammography with Computer Added Detection was performed. COMPARISON: Comparison is made with prior examination of December 04, 2021 and November 23, 2020. FINDINGS: Breast Composition: There are scattered areas of fibroglandular density. There are no dominant masses or suspicious calcifications. No other significant abnormalities are identified. There has been no significant change since the prior study. BI/SCRN MAMM (CAD)W/IZTEL BILAT IMPRESSION: Stable bilateral screening mammogram. Yearly follow-up mammogram recommended. (A) ASSESSMENT CATEGORY: BIRADS Category 1: Negative. A letter regarding these results will be sent to the patient by the facility within 30 days. Approximately 10% of breast cancers are not detected by mammography. A normal mammogram should not delay biopsy of a clinically suspicious abnormality. [id number] Electronically Signed: Jose Billy MD at 12:20 EDT ,
== END | disposition home or self-care (01) ==
LOC: OPBI 10:47
PROVIDERS: PCP Nurse Practitioner Family; Visit Provider Obstetrics & Gynecology
DX: Z12.31 Encounter for screening mammogram for malignant neoplasm of breast (principal)
CPT/HCPCS: 77063; 77067

== ENCOUNTER 2022-12-23 13:02 | Emergency (ER) | payer MEDICARE, OTHER, SELFPAY ==
[2022-12-23 13:03] VITALS: BP 96/81; PULSE 110; RESP 18; TEMP 35.8; O2SAT 93
[2022-12-23 13:20] VITALS: BMI 33.5
--- NOTE | 2022-12-23 13:46 | EKG12_ITS ---
Test Reason : WEAKNESS Blood Pressure : / mmHG Vent. Rate : 095 BPM Atrial Rate : 095 BPM P-R Int : 142 ms QRS Dur : 072 ms QT Int : 348 ms P-R-T Axes : -11 -51 014 degrees QTc Int : 437 ms Normal sinus rhythm Pulmonary disease pattern Left anterior fascicular block Abnormal ECG Confirmed by HIRO CEBALLOS ([id number]), editor index KATERYNA HUTCHINS ([id number]) on 12/26/2022 1:11:36 PM Referred By: Confirmed By:HIRO CEBALLOS
--- NOTE | 2022-12-23 13:48 | EDS_ITS ---
HPI History of Present Illness Chief Complaint: Weakness Narrative Narrative: Patient is a 72-year-old female who is presenting to the ER today with chief complaint of generalized weakness, nausea. Patient saw her PCP on Saturday. Patient was prescribed Zyrtec and prednisone. Patient is a diabetic. Patient has not been eating this week much, patient has been drinking. Patient has no headache, neck pain. No chest pain, shortness of breath, positive nausea, no vomiting. No diarrhea. No urinary frequency, urgency or burning. Patient has no recent traveling. No other sick contacts. Patient lives at home by herself. Patient drove herself to the ER. Patient feels weak, fatigued. Patient went to a baby shower yesterday, she had to go sit in the car because she was exhausted. Patient has no other acute complaints at this time. Patient has sinus congestion, runny nose, mild cough. [facility] Medical History Diabetes GERD (gastroesophageal reflux disease) Hypertension Hypothyroid Osteoarthritis Home Medications amlodipine 10 mg tablet 10 mg PO DAILY 06/11/17 [History Last Taken Unknown] escitalopram oxalate 10 mg tablet 10 mg PO DAILY 06/11/17 [History Last Taken Unknown] levothyroxine 100 mcg tablet 100 mcg PO SUMOTUWETHFR 06/11/17 [History Last Taken Unknown] metformin 500 mg tablet,extended release 24 hr 500 mg PO DAILY 11/16/18 [History Last Taken Unknown] cephalexin 500 mg capsule 500 mg PO Q12 #14 CAPSULES 12/23/22 [Rx Last Taken Unknown] cetirizine 10 mg tablet 10 mg PO DAILY 12/23/22 [History Last Taken Unknown] prednisone 20 mg tablet 40 mg PO DAILY 12/23/22 [History Last Taken Unknown] Allergy/AdvReac Type Severity Reaction Status Date / Time Penicillins Allergy Unknown Verified 12/23/22 13:05 Family History (Updated 07/30/22 @ 09:55 by Dagmar Whitney) Mother Lung cancer Surgical History Status post total left knee replacement Social History (Updated 07/30/22 @ 09:56 by Dagmar Whitney) household members: none Smoking Status: Never smoker alcohol intake: never substance use type: does not use caffeine: No what type of physical activity do you participate in: none seatbelt use: always do you feel safe at home: Yes additional social history: ROS ROS ED ROS Narrative REVIEW OF SYSTEMS: Unless otherwise stated in this report the patient's positive and negative responses for review of systems for constitutional, eyes, ENT, cardiovascular, respiratory, gastrointestinal, neurological, , musculoskeletal, and integument systems and related systems to the presenting problem are either stated in the history of present illness or were not pertinent or were negative for the symptoms and/or complaints related to the presenting medical problem. EXAM Physical Exam Narrative Exam Narrative: Vital signs reviewed and patient is not hypoxic. General: The patient appears well and in no apparent distress. Patient is resting comfortably on cart. Not toxic, lethargic, or listless. Skin: Warm, dry, no pallor noted. There is no rash noted. Head: Normocephalic, atraumatic, no midline or paracervical tenderness palpation. Full range of motion cervical spine no difficulty Eye: Normal conjunctiva, no drainage, EOMI. PERRL. Ears, Nose, Mouth, and Throat: oral mucosa is moist. Nares patent. Mouth without vesicles. Patient has clear drainage to the posterior pharynx, Cardiovascular: Regular Rate and Rhythm, no murmurs, gallops, or rubs Respiratory: Patient is in no distress, no accessory muscle use, lungs are clear to auscultation, no wheezing, rales or rhonchi Back: non-tender, no CVA tenderness bilaterally to percussion. NO CTLS midline or paracervicl tenderness to palpation. GI: Soft, minimal periumbilical tenderness to palpation, mild suprapubic tenderness palpation, no flank pain bilateral, otherwise no tenderness to palpation, no masses appreciated. No rebound, guarding, or rigidity noted. Musculoskeletal: The patient has full range of motion of all extremities and joints with no difficulty. Patient has no motor, no sensory deficits. Neurological: A&O x4, normal speech, no focal neurological deficits. Psychiatric: Cooperative Const Vital Signs: 12/23/22 13:03 12/23/22 14:27 12/23/22 15:00 Temperature 96.5 F L Temperature Source Temporal Pulse Rate 110 H Pulse Rate [Lying] 91 Pulse Rate [Sitting (for 1 minute prior to obtaining)] 98 Pulse Rate [Standing (for 1 minute prior to obtaining)] 112 H Respiratory Rate 18 Blood Pressure 96/81 H 125/56 H Blood Pressure [Lying] 142/80 H Blood Pressure [Sitting (for 1 minute prior to obtaining)] 142/82 H Blood Pressure [Standing (for 1 minute prior to obtaining)] 130/80 H Blood Pressure Mean 86 77 Blood Pressure Mean [Lying] 100 Blood Pressure Mean [Sitting (for 1 minute prior to obtaining)] 102 Blood Pressure Mean [Standing (for 1 minute prior to obtaining)] 96 Pulse Ox 93 Oxygen Delivery Method Room Air MDM MDM Lab Data Labs: Laboratory Results - last 24 hr 12/23/22 12/23/22 12/23/22 14:10 14:20 14:35 WBC 16.1 H RBC 5.25 Hgb 16.1 H Hct 48.6 H MCV 92.6 MCH 30.7 MCHC 33.1 RDW Std Deviation 46.2 H RDW Coeff of [place] 13.6 Plt Count 228 MPV 10.4 Immature Gran % (Auto) 1.100 H Neut % (Auto) 70.9 H Lymph % (Auto) 17.0 L [place] % (Auto) 10.0 Eos % (Auto) 0.6 Baso % (Auto) 0.4 Absolute Neuts (auto) 11.4 H Absolute Lymphs (auto) 2.73 Nucleated RBC % 0 [address] Path Review May foll Sodium Potassium Chloride Carbon Dioxide Anion Gap BUN Creatinine Estim Creat Clear Calc Est GFR (MDRD) Af Amer Est GFR (MDRD) Non-Af BUN/Creatinine Ratio Glucose Calcium Total Bilirubin AST ALT Alkaline Phosphatase Troponin I High Sens Total Protein Albumin Globulin Albumin/Globulin Ratio Lipase Urine Color Yellow Urine Clarity Sl. Cloudy Urine pH 5.0 Ur Specific [place] 1.015 Urine Protein 30 H Urine Glucose (UA) Normal Urine Ketones Negative Urine Occult Blood 50 H Urine Nitrite Positive H Urine Bilirubin Negative Urine Urobilinogen Normal Ur Leukocyte Esterase 500 H Urine RBC 0 SEEN Urine WBC 5-10 SEEN Ur Squamous Epith Cells 0-5 SEEN Urine Bacteria 1+ Urine Mucus 0 SEEN POC Glucose 130 H 12/23/22 14:35 WBC RBC Hgb Hct MCV MCH MCHC RDW Std Deviation RDW Coeff of [place] Plt Count MPV Immature Gran % (Auto) Neut % (Auto) Lymph % (Auto) [place] % (Auto) Eos % (Auto) Baso % (Auto) Absolute Neuts (auto) Absolute Lymphs (auto) Nucleated RBC % Diff Path Review Sodium 136 Potassium 3.8 Chloride 104 Carbon Dioxide 27.0 Anion Gap 5 BUN 21 H Creatinine 1.00 Estim Creat Clear Calc 62.31 Est GFR (MDRD) Af Amer 70 Est GFR (MDRD) Non-Af 58 L BUN/Creatinine Ratio 21.0 H Glucose 131 H Calcium 9.1 Total Bilirubin 0.70 AST 21 ALT 23 Alkaline Phosphatase 65 Troponin I High Sens 8 Total Protein 6.7 Albumin 3.2 Globulin 3.5 Albumin/Globulin Ratio 0.9 Lipase 20 Urine Color Urine Clarity Urine pH Ur Specific [place] Urine Protein Urine Glucose (UA) Urine Ketones Urine Occult Blood Urine Nitrite Urine Bilirubin Urine Urobilinogen Ur Leukocyte Esterase Urine RBC Urine WBC Ur Squamous Epith Cells Urine Bacteria Urine Mucus POC Glucose Radiography Chest X-Ray - ED: Read by ED Physician (Abdominal series x-ray shows no acute cardiopulmonary disease, no effusion, no infiltrate. Abdominal exam shows constipation.) Diagnostic Testing: Clinical Impression(s) from Imaging Studies Acute Abdomen Series 12/23/22 15:12 IMPRESSION: Constipation. Electronically Signed: Babak Peralta MD at 15:35 EDT , EKG Initial EKG: Comments: EKG interpretation. Normal sinus rhythm at 95 beats a minute. Left axis deviation. No acute ST elevation, no acute ectopy. QTc of 437 Differential Diagnosis Differential Diagnosis: Abdominal pain, gastroenteritis, UTI, kidney stone, pancreatitis, sinusitis, URI Treatment and Re-Evaluation :: Patient was given 2 L of IV fluid. Patient was also given IV Rocephin. Patient been drinking ice water without difficulty. Patient has a white blood cell count of 16, this could be secondary infection, but she is also taking prednisone that was prescribed to her by her PCP on Saturday. Patient will continue zinc Zyrtec for the next 3 to 4 days. Patient is almost done taking her prednisone. Patient will be started on Keflex, she will start that tomorrow. Patient will continue increased fluids at home. Patient has no signs of DKA, no significant secondary etiology of feeling ill secondary to diabetes. Patient is weak and fatigued, but patient is able to go home, increase fluids, follow-up with PCP. Discharge Plan Triage Chief Complaint: Weakness ED Provider: Christiano Ireland Dx/Rx/DC Orders Clinical Impression: Urinary tract infection, Weakness, Mild dehydration, Sinusitis Instructions: Urinary Tract Infections in Women, Dehydration, Causes of Sinusitis, ED Weakness (Uncertain Cause) Prescriptions: New cephalexin 500 mg capsule 500 mg PO Q12 Qty: 14 0RF No Action levothyroxine 100 MCG tablet 100 mcg PO SUMOTUWETHFR amlodipine 10 MG tablet 10 mg PO DAILY escitalopram oxalate 10 MG tablet 10 mg PO DAILY metformin 500 MG tablet 500 mg PO DAILY cetirizine 10 mg Tablet 10 mg PO DAILY prednisone 20 mg Tablet 40 mg PO DAILY Primary Care Provider: Gretel Mane Referrals: Gretel Mane, [employer] [Primary Care Provider] - Activity Restrictions/Additional Instructions: Increase fluids at home. Finish medications as prescribed by PCP. Continue to follow-up and take your sugars several times a day. Follow-up with PCP if no improvement in Saturday or Saturday for Disposition Disposition: Home, Self Care
[2022-12-23 14:26] LABS: Mucous, Urine 0 SEEN /hpf (<or=2+); Red Blood Cells-Urine 0 SEEN /hpf (0-5)
[2022-12-23 14:27] VITALS: BP 130/80; BP 142/80; BP 142/82; PULSE 112; PULSE 91; PULSE 98
[2022-12-23 14:27] LABS: Color, Urine Yellow (Yellow); Glucose, Dipstick Normal (Normal); Ketone-Dipstick Negative (Negative); Leukocyte Esterase-Dipstick 500 /ul (Negative); Nitrite-Dipstick Positive (Negative); Occult Blood-Urine 50 /ul (Negative); Protein-Dipstick 30 mg/dl (Negative); Specific Gravity, Urine 1.015 (1.002-1.030); Urine Bilirubin Dipstick Negative (Negative); Urine Clarity Sl. Cloudy (Clear); Urine Urobilinogen Normal (Normal)
[2022-12-23 14:33] LABS: Bacteria 1+ /hpf (None Seen); Squamous Epithelial Cells - UA 0-5 SEEN /hpf (5-10); White Blood Cells 5-10 SEEN /hpf (0-5)
[2022-12-23 14:35] LABS: Bedside Glucose 130 mg/dL (74-106)
[2022-12-23 14:44] LABS: Absolute Lymphocyte Count 2.73 X10^3/uL (0.83-4.51); Absolute Neutrophil Count 11.4 X10^3/uL (2.0-7.7); Basophil# 0.07 X10^3/uL; Basophil% 0.4 % (0-1); Eosinophils% 0.6 % (0-5); Hematocrit 48.6 % (37-47); Hemoglobin 16.1 g/dL (12.0-15.0); Lymphocyte # 2.73 X10^3/ul (0.83-4.51); Mean Corp Hgb Conc 33.1 g/dL (32-36); Mean Corpuscular Hgb 30.7 pg (27.0-32.0); Mean Corpuscular Volume 92.6 fL (81-99); Mean Platelet Vol. 10.4 fl (6.2-12.0); NRBC Flagged by Analyzer 0 % (0-5); Neutrophil # 11.39 X10^3/uL (2.7-7.7); Neutrophil % 70.9 % (47-70); POSITIVE DIFFERENTIAL YES; Platelet Count 228 K/mm3 (150-450); RBC Distribution Width CV 13.6 % (11.6-14.6); RBC Distribution Width SD 46.2 fl (35.1-43.9); Red Blood Count 5.25 M/mm3 (4.2-5.4); White Blood Count 16.1 K/mm3 (4.4-11.0)
[2022-12-23 14:45] LABS: Differential Indicated SCAN CRITERIA MET
[2022-12-23] MEDS: 0.9% Normal Saline 1,000 ML 1000 ML IV ×2 (14:58→15:36)
[2022-12-23 15:00] VITALS: BP 125/56
[2022-12-23 15:04] LABS: ALB/GLOB Ratio 0.9 RATIO (0.9-2.4); AST(SGOT) 21 U/L (15-37); Alanine Aminotransfer ALT/SGPT 23 U/L (13-56); Albumin, Serum 3.2 g/dL (3.2-5.0); Alkaline Phosphatase 65 U/L (45-117); Anion Gap 5 (5-15); BUN 21 mg/dL (7-18); Calcium,Total 9.1 mg/dL (8.5-10.1); Chloride 104 mmol/L (98-107); EST Glomerular Filtration Rate 58 mL/min (>60); Est Glom Filt Rate - Afr Amer 70 mL/min (>60); Estimated Creatinine Clearance 62.31 ml/min; Globulin 3.5 g/dL (2.2-4.2); Glucose 131 mg/dL (74-106); Lipase 20 U/L (13-75); Potassium 3.8 mmol/L (3.5-5.1); Protein, Total 6.7 g/dL (6.4-8.2); Sodium Level 136 mmol/L (136-145); Troponin-I HS 8 pg/mL (3.0-54.0)
--- NOTE | 2022-12-23 15:12 | RAD_ITS ---
EXAM: XR ABDOMEN, 2 VIEWS AND XR CHEST, 1 VIEW CLINICAL INDICATION: abd pain, sob PT C/O WEAKNESS X 3 DAYS, NAUSEA, NO APPETITE, RECENT CHANGE IN MEDICATION TECHNIQUE: Frontal view of the chest, frontal view of the abdomen/pelvis and upright or decubitus view of the abdomen. This report was created using [employer] report generation technology. COMPARISON: CT 07.25.23 FINDINGS: CHEST: LUNGS AND PLEURAL SPACES: Unremarkable. No consolidation or edema. No pneumothorax. No effusion. HEART: Unremarkable. Cardiac silhouette not enlarged. MEDIASTINUM: Central airways and mediastinal contour are unremarkable. ABDOMEN: INTRAPERITONEAL SPACE: No free air. GASTROINTESTINAL TRACT: Stool throughout the colon. Non-obstructive. No bowel or stomach distention. ORGANS: Unremarkable as visualized. No organomegaly. No abnormal calcifications. TUBES, LINES AND DEVICES: None. BONES/JOINTS: There are degenerative changes of the spine. SOFT TISSUES: No acute findings. RAD/Acute Abdomen Inc Chest IMPRESSION: Constipation. Electronically Signed: Babak Peralta MD at 15:35 EDT ,
[2022-12-23] MEDS: Ondansetron 4 MG/2 ML Vial IV (15:36)
[2022-12-23] MEDS: Ceftriaxone 1 GM/50 ML BAG IV (16:08)
[2022-12-25 13:03] LABS: Pathologist Review Reviewed
== END 2022-12-23 16:52 | disposition home or self-care (01) ==
PROVIDERS: Emergency Provider Emergency Medicine; PCP Nurse Practitioner Family; Visit Provider Emergency Medicine
DX: N39.0 Urinary tract infection, site not specified (principal); E11.9 Type 2 diabetes mellitus without complications; R53.1 Weakness; E86.0 Dehydration; J32.9 Chronic sinusitis, unspecified; I10 Essential (primary) hypertension; E03.9 Hypothyroidism, unspecified; Z79.899 Other long term (current) drug therapy; Z79.84 Long term (current) use of oral hypoglycemic drugs
CPT/HCPCS: 74022; 80053; 81001; 82962; 83690; 84484; 85025; 87811; 93005; 96365; 96375; 99283; J7030; J2405

== ENCOUNTER 2023-01-09 14:00 | Outpatient (RCR) | payer MEDICARE, OTHER, SELFPAY ==
--- NOTE | 2022-09-26 16:06 | HP.PTEVAL ---
Patient's Visit Information LAISHA DELGADO is a 72 year old F referred to Physical Therapy by Stacie Rodriguez DO with a diagnosis of R knee pain. Date of Evaluation: 09/26/22 Physical Therapist: Babak Sharma PT, ATC - Visit Plan Frequency: 2x /Week Duration: 4-6 Weeks Plan: Aquatic therapy consisting of B LE strengthening and core stab ex's - Subjective Pt reports she has had R knee pain chronically for many years. Pt notes she had stem cell injections and gel injections in the past that both helped her temporarily. Pt notes she still has pain and difficulty with any prolonged activity. Pt reports her L knee was replaced 4-5 years ago, and needs to have new sponges inserted into her L knee in the near future. Pt reports she is here today because she needs some strengthening to her legs to help decrease her pain. Pt denies tingling or numbness in her LE's at this time. Pt reports her R knee will give out on occasion. Pt denies her R knee locking up on her. Pt reports she only has a couple stairs into her house, and notes she usually negotiates them one step at a time. Pt reports no sleep difficulty at this time secondary to pain. Pt reports she is limited with prolonged ambulation at times secondary to pain. Pt reports both of her legs feel swollen and heavy on todays date. 0/10 pain at rest, 10/10 pain with prolonged ambulation - Pain R knee Pain Intensity (Out of 10): 0 Pain Intensity Range: 10 - Objective Neuro: B LE sensation is WNL to light touch this date. Girth at joint line: R knee 41 cm, L knee 39. MMT: L knee flex= 27, ext= 32 #F; R knee flex= 21, ext= 38 #F. ROM: L knee 0-105, R knee 0-12-108 degrees. Gait: Pt is able to ambulate 450 feet until needing to rest secondary to pain - Balance/Special Test Scores Lower Extremity Functional Score: 35 - Goals Goal 1:: Decrease R knee pain x 50% to aid with increasing tolerance for ambulation Goal Time Frame: 4-6 Weeks Goal 2:: Increase R knee strength x 5 #F to aid with stair negotiation Goal Time Frame: 4-6 Weeks Goal 3:: Pt will be able to ambulate greater than 1000 feet to aid with community ambulation Goal Time Frame: 4-6 Weeks Goal 4:: I with HEP Goal Time Frame: 4-6 Weeks - Rehabilitation Potential Physical Therapy Diagnosis: Pt has R knee pain Rehabilitation Potential: Good - Anticipated Interventions Patient/Client Instruction: Educate patient on: Condition, Plan of Care For the Purpose of:: To improve self management Therapeutic Exercise to Include: Strength training, Endurance training, Flexibilty training, In an aquatic setting, Active ROM, Dynamic Lumbar Stabilization For the Purpose of:: To decrease pain, To improve muscle performance and motor function, To increase tolerance to activity/condition/position Thank you for the opportunity to evaluate your patient. For Medicare and Medicare HMO plans, please review the plan of care and approve it. It will need to be FAXED BACK to us at [phone] for Medicare purposes. For Medicare only, by signing this I certify the plan of care. Please let me know if there are questions or concerns regarding this plan of care. Physician Signature: Date:
--- NOTE | 2022-10-25 11:35 | HP.PTREVAL ---
Stacie Rodriguez, DO, It has been my pleasure to treat LAISHA DELGADO over the last 8 visits for R knee pain. Please see the progress note below for an update on the physical therapy plan of care! Subjective: My R knee is really swollen today. It hurts whenever I walk Objective/Function: R knee pain ranges from 0-8/10. R knee strength: flex= 30, ext= 46 #F. Gait: Pt is able to ambulate 480 feet until needing to stop today. Pt is progressing well toward Rx goals but would benefit from further strengthening in order to improve walking distance and to decrease pain. Plan Plan: Continue with aquatic therapy for R LE strengthening and core stab ex's Balance/Gait/Functional tests - Balance/Special Test Scores Lower Extremity Functional Score: 42 Goals Goal 1:: Decrease R knee pain x 50% to aid with increasing tolerance for ambulation Goal Time Frame: 4-6 Weeks Goal Progress: Progressing Goal 2:: Increase R knee strength x 5 #F to aid with stair negotiation Goal Time Frame: 4-6 Weeks Goal Progress: Goal Met Goal 3:: Pt will be able to ambulate greater than 1000 feet to aid with community ambulation Goal Time Frame: 4-6 Weeks Goal Progress: Progressing Goal 4:: I with HEP Goal Time Frame: 4-6 Weeks Goal Progress: Progressing Anticipated Interventions Patient/Client Instruction: Educate patient on: Condition, Plan of Care For the Purpose of:: To improve self management Therapeutic Exercise to Include: Strength training, Endurance training, Flexibilty training, In an aquatic setting, Active ROM, Dynamic Lumbar Stabilization For the Purpose of:: To decrease pain, To improve muscle performance and motor function, To increase tolerance to activity/condition/position Please do not hesitate to contact me at [phone] by phone or if you have questions or concerns regarding this new plan of care! Sincerely, Babak Sharma, PT, ATC
--- NOTE | 2022-11-30 14:01 | HP.PTREVAL ---
Stacie Rodriguez, DO, It has been my pleasure to treat LAISHA DELGADO over the last 16 visits for R knee pain. Please see the progress note below for an update on the physical therapy plan of care! Subjective: Pain on and off Objective/Function: R knee pain ranges from 0-6/10. R knee MMT: flex= 31, ext= 39 #F. Pt is able to ambulate greater than 1000 feet until needing to rest. Pt negotiates stair one step at a time with HR. Pt still is limited with strength and functional mobility at this time Plan Plan: Pt would like to use water belt instead of large noodle for deep water ex's. *Continue with aquatic therapy for R LE strengthening and core stab ex's Balance/Gait/Functional tests - Balance/Special Test Scores Lower Extremity Functional Score: 42 Goals Goal 1:: Decrease R knee pain x 50% to aid with increasing tolerance for ambulation Goal Time Frame: 4-6 Weeks Goal Progress: Progressing Goal 2:: Increase R knee strength x 5 #F to aid with stair negotiation Goal Time Frame: 4-6 Weeks Goal Progress: Goal Met Goal 3:: Pt will be able to ambulate greater than 1000 feet to aid with community ambulation Goal Time Frame: 4-6 Weeks Goal Progress: Goal Met Goal 4:: I with HEP Goal Time Frame: 4-6 Weeks Goal Progress: Progressing Goal 5:: Pt will be able to negotiate one flight of stairs reciprocally Goal Time Frame: 4-6 Weeks Anticipated Interventions Patient/Client Instruction: Educate patient on: Condition, Plan of Care For the Purpose of:: To improve self management Therapeutic Exercise to Include: Strength training, Endurance training, Flexibilty training, In an aquatic setting, Active ROM, Dynamic Lumbar Stabilization For the Purpose of:: To decrease pain, To improve muscle performance and motor function, To increase tolerance to activity/condition/position Please do not hesitate to contact me at [phone] by phone or if you have questions or concerns regarding this new plan of care! Sincerely, Babak Sharma, PT, ATC
--- NOTE | 2023-01-09 15:13 | HP.PTDCSUM ---
It has been my pleasure to treat LAISHA DELGADO referred by Stacie Rodriguez DO, with the diagnosis of R knee pain for a total of 23 visit(s). Discharge Date: Please see the following information for a summary of their discharge status. Subjective: Pt reports she walked a lot yesterday, and she was very sore and swollen afterwards. R knee Pain Intensity (Out of 10): 5 % Improvement: 30 Objective/Function: R knee pain is currently 5/10 at rest, 9/10 at worst. MMT: flex= 27, ext= 36 #F. Pt is able to ambulate 1000 feet, but is sore afgterwards. Pt is still very limited secondary to pain. Goal 1:: Decrease R knee pain x 50% to aid with increasing tolerance for ambulation Goal Progress: Not Progressing Goal 2:: Increase R knee strength x 5 #F to aid with stair negotiation Goal Progress: Goal Met Goal 3:: Pt will be able to ambulate greater than 1000 feet to aid with community ambulation Goal Progress: Goal Met Goal 4:: I with HEP Goal Progress: Goal Met Goal 5:: Pt will be able to negotiate one flight of stairs reciprocally Goal Progress: Not Progressing Plan: Discontinue PT at this time and return to doctor for further evaluation If there are questions or concerns regarding this patient's physical therapy, please feel free to call me at [phone]. Thank you for the referral of this patient. Sincerely, Babak Sharma, PT, ATC Balance/Gait/Functional tests - Balance/Special Test Scores Lower Extremity Functional Score: 33
== END 2023-01-09 19:00 | disposition home or self-care (01) ==
LOC: PT 14:00
PROVIDERS: PCP Nurse Practitioner Family; Referring Provider Internal Medicine; Visit Provider Internal Medicine
DX: M25.569 Pain in unspecified knee (principal)
CPT/HCPCS: 97035; 97110; 97113; 97161; 97164

== ENCOUNTER 2023-01-29 13:45 | Outpatient (CLI) | payer MEDICARE, OTHER, SELFPAY ==
[2023-01-29 13:56] VITALS: BP 123/76; PULSE 85; RESP 16; TEMP 36.6
[2023-01-29] MEDS: DENOSUMAB 60 MG/ML SC (13:58)
== END 2023-01-29 13:46 | disposition home or self-care (01) ==
LOC: MEDOUTP 13:45
PROVIDERS: PCP Nurse Practitioner Family; Referring Provider Nurse Practitioner; Visit Provider Nurse Practitioner
DX: M81.0 Age-related osteoporosis without current pathological fracture (principal)
CPT/HCPCS: 96372; J0897

== ENCOUNTER 2023-05-01 04:41 | Emergency (ER) | payer MEDICARE, OTHER, SELFPAY ==
[2023-05-01 04:41] VITALS: BP 154/84; PULSE 84; RESP 16; TEMP 35.9; O2SAT 96; BMI 35.2
--- NOTE | 2023-05-01 06:10 | EX.ED.DYSGE1 ---
HPI History of Present Illness Chief Complaint: Sore Throat Informant: patient Narrative Narrative: Patient is a 73-year-old female with past medical history of hypertension hypothyroidism and diabetes currently on metformin. She states that over the last 2 days she has had increased nasal congestion sore throat and mild cough. She denies any known sick contacts. She denies any history of immunosuppression. She states she is having difficulty sleeping secondary to the symptoms and is concerned she may have strep throat and therefore comes in for evaluation. [facility] Medical History Diabetes GERD (gastroesophageal reflux disease) Hypertension Hypothyroid Osteoarthritis Home Medications amlodipine 10 mg tablet 10 mg PO DAILY 06/11/17 [History Last Taken Unknown] escitalopram oxalate 10 mg tablet 10 mg PO DAILY 06/11/17 [History Last Taken Unknown] levothyroxine 100 mcg tablet 100 mcg PO SUMOTUWETHFR 06/11/17 [History Last Taken Unknown] metformin 500 mg tablet,extended release 24 hr 500 mg PO DAILY 11/16/18 [History Last Taken Unknown] meloxicam 15 mg tablet 15 mg PO DAILY 01/29/23 [History Last Taken Unknown] vibegron 75 mg tablet (Gemtesa) 75 mg PO DAILY 01/29/23 [History Last Taken Unknown] azelastine 137 mcg (0.1 %) nasal spray aerosol 2 spray intranasal BID #30 mL 05/01/23 [Rx Last Taken Unknown] hydrocodone-homatropine 5 mg-1.5 mg/5 mL (5 mL) oral syrup (Hycodan) 5 ml PO 4X/DAY PRN PRN cough 7 days #140 mL 05/01/23 [Rx Last Taken Unknown] prednisone 20 mg tablet 20 mg PO DAILY 5 days #5 tabs 05/01/23 [Rx Last Taken Unknown] Allergy/AdvReac Type Severity Reaction Status Date / Time Penicillins Allergy Unknown Verified 12/23/22 13:05 Family History (Updated 07/30/22 @ 09:55 by Dagmar Whitney) Mother Lung cancer Surgical History Status post total left knee replacement Social History (Updated 07/30/22 @ 09:56 by Dagmar Whitney) household members: none Smoking Status: Never smoker alcohol intake: never substance use type: does not use caffeine: No what type of physical activity do you participate in: none seatbelt use: always do you feel safe at home: Yes additional social history: ROS ROS ED Constitutional Constitutional ED: Reports chills and subjective; Denies fever(s) ENT ENT ED: Reports rhinorrhea and sore throat Cardiovascular Cardiovascular: Denies chest pain Respiratory/Chest Respiratory/Chest: Reports cough; Denies dyspnea Gastrointestinal Gastrointestinal: Denies abdominal pain, diarrhea, nausea or vomiting Genitourinary Genitourinary ED: Denies dysuria Musculoskeletal Musculoskeletal: Reports myalgias Integumentary Denies rash Neurologic Neurologic: Reports headache(s) Hematologic/Lymphatic Hematologic/Lymphatic: Denies easy bleeding or easy bruising EXAM Physical Exam Const Vital Signs: 05/01/23 04:41 Temperature 96.6 F L Temperature Source Temporal Pulse Rate 84 Respiratory Rate 16 Blood Pressure 154/84 H Blood Pressure Mean 107 Pulse Ox 96 Oxygen Delivery Method Room Air Positive well nourished and well developed General Appearance ED: well developed HEENT HEENT Narrative: Nasal mucosa is hyperemic and boggy with enlarged inferior nasal turbinates. There is cobblestoning the posterior pharynx consistent with sinus drainage but no airway edema or compromise. No hard palate petechiae. No change in voice. No difficulty with secretions Eyes PERRL and EOMs intact bilaterally Neck supple Neck Narrative: Positive anterior cervical lymphadenopathy noted No meningeal signs present Resp normal respiratory effort Resp Narrative: Breath sounds are diminished throughout with faint rhonchi in the bilateral bases but no signs of respiratory distress Cardio regular rate and regular rhythm GI normal to inspection, nondistended, normoactive bowel sounds, non-tender, non-distended and no masses Auscultation: normoactive bowel sounds Palpation: soft Extremity normal to inspection Neuro oriented x3, CN's II-XII intact bilaterally and no sensory deficits noted Sensorium / Orientation: alert Motor Exam: strength 5/5 throughout Psych mental status grossly normal Skin no rashes or lesions noted MDM MDM MDM Narrative Medical decision making narrative: Patient presented to the ER afebrile and mildly hypertensive but has a past medical history of this. Her constellation of symptoms are viral in nature. Differential diagnosis includes COVID versus influenza versus strep. As she is not have any signs of respiratory distress I do not feel there is need for a chest x-ray. Basic viral swabs were obtained and were negative indicating patient has another viral URI. However as she is not showing signs of respiratory distress or systemic infection there is no need for admission. Patient be given symptomatic medications and is otherwise safe for discharge Discharge Plan Triage Chief Complaint: Sore Throat ED Provider: Derek Dorman Dx/Rx/DC Orders Clinical Impression: Viral upper respiratory tract infection, History of hypothyroidism, Hypertension Instructions: ED URI, Viral, No Abx (Adult) Prescriptions: New prednisone 20 mg tablet 20 mg PO DAILY 5 Days Qty: 5 0RF azelastine 137 mcg (0.1 %) aerosol,spray 2 spray intranasal BID Qty: 30 0RF Rx Instructions: administer into each nostril hydrocodone-homatropine [Hycodan] 5-1.5 mg/5 mL (5 mL) syrup 5 ml PO 4X/DAY PRN PRN (Reason: cough) 7 Days Qty: 140 0RF No Action levothyroxine 100 MCG tablet 100 mcg PO SUMOTUWETHFR amlodipine 10 MG tablet 10 mg PO DAILY escitalopram oxalate 10 MG tablet 10 mg PO DAILY metformin 500 MG tablet 500 mg PO DAILY meloxicam 15 mg Tablet 15 mg PO DAILY Gemtesa 75 mg Tablet 75 mg PO DAILY Primary Care Provider: Gretel Mane Referrals: Gretel Mane NP-C [Primary Care Provider] - Activity Restrictions/Additional Instructions: Your exam and testing indicate you have a viral upper respiratory infection. This does not go away with antibiotics and will only resolve with time. This will typically take on average 14 days. Please take your medication as directed to help control your symptoms and return to the ER should you have any further concerns Disposition Disposition: Home, Self Care Discharge Date/Time: 05/01/23 06:17
[2023-05-01 06:16] VITALS: BP 153/75; PULSE 81; RESP 18; O2SAT 93
== END 2023-05-01 06:17 | disposition home or self-care (01) ==
PROVIDERS: Emergency Provider Emergency Medicine; PCP Nurse Practitioner Family; Visit Provider Emergency Medicine
DX: J06.9 Acute upper respiratory infection, unspecified (principal); E11.9 Type 2 diabetes mellitus without complications; I10 Essential (primary) hypertension; E03.9 Hypothyroidism, unspecified; Z79.84 Long term (current) use of oral hypoglycemic drugs; Z79.899 Other long term (current) drug therapy
CPT/HCPCS: 87428; 87880; 99282

== ENCOUNTER 2023-05-13 14:45 | Emergency (ER) | payer MEDICARE, OTHER, SELFPAY ==
[2023-05-13 14:47] VITALS: BP 122/83; PULSE 86; RESP 18; TEMP 36.2; O2SAT 95; BMI 34.0
--- NOTE | 2023-05-13 15:02 | EKG12_ITS ---
Test Reason : SOB Blood Pressure : / mmHG Vent. Rate : 073 BPM Atrial Rate : 073 BPM P-R Int : 176 ms QRS Dur : 076 ms QT Int : 404 ms P-R-T Axes : -10 -38 024 degrees QTc Int : 445 ms Normal sinus rhythm Left axis deviation Abnormal ECG Confirmed by GIOVANNI LOPEZ, ALANA ([id number]), magazine editor KATERYNA HUTCHINS ([id number]) on 05/17/2023 11:36:34 AM Referred By: Confirmed By:ALANA DAVILA MD
--- NOTE | 2023-05-13 15:02 | EX.ED.DYSGE1 ---
HPI History of Present Illness Chief Complaint: Shortness of Breath Informant: patient Onset/Context/Timing Onset: Days Context: Gradual Onset Narrative Narrative: Patient presents secondary to increasing shortness of breath, cough, and weakness. Patient was seen in the ER late last month with URI symptoms and sore throat. Her swabs were negative. Patient states she started to improve but over the weekend noted increased generalized weakness with cough and pain in the left lower posterior ribs. Pain is worse with cough. She is bringing up only a small amount of sputum. She denies fever. 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 [facility] Medical History Diabetes GERD (gastroesophageal reflux disease) Hypertension Hypothyroid Osteoarthritis Home Medications amlodipine 10 mg tablet 10 mg PO DAILY 06/11/17 [History Last Taken Unknown] escitalopram oxalate 10 mg tablet 10 mg PO DAILY 06/11/17 [History Last Taken Unknown] levothyroxine 100 mcg tablet 100 mcg PO SUMOTUWETHFR 06/11/17 [History Last Taken Unknown] metformin 500 mg tablet,extended release 24 hr 500 mg PO DAILY 11/16/18 [History Last Taken Unknown] meloxicam 15 mg tablet 15 mg PO DAILY 01/29/23 [History Last Taken Unknown] vibegron 75 mg tablet (Gemtesa) 75 mg PO DAILY 01/29/23 [History Last Taken Unknown] azelastine 137 mcg (0.1 %) nasal spray aerosol 2 spray intranasal BID #30 mL 05/01/23 [Rx Last Taken Unknown] hydrocodone-homatropine 5 mg-1.5 mg/5 mL (5 mL) oral syrup (Hycodan) 5 ml PO 4X/DAY PRN PRN cough 7 days #140 mL 05/01/23 [Rx Last Taken Unknown] prednisone 20 mg tablet 20 mg PO DAILY 5 days #5 tabs 05/01/23 [Rx Last Taken Unknown] azithromycin 250 mg tablet (Zithromax) 250 mg PO DAILY 4 days #4 tabs 05/13/23 [Rx Last Taken Unknown] Allergy/AdvReac Type Severity Reaction Status Date / Time Penicillins Allergy Unknown Verified 05/13/23 14:46 Family History Mother Lung cancer Surgical History Status post total left knee replacement Social History household members: none Smoking Status: Never smoker alcohol intake: never substance use type: does not use caffeine: No what type of physical activity do you participate in: none seatbelt use: always do you feel safe at home: Yes additional social history: ROS ROS ED Constitutional Constitutional ED: Denies chills or fever(s) Eyes Eyes: Denies change in vision or discharge from eye(s) ENT ENT ED: Reports other Details: Congestion, improving ; Denies discharge from eye(s), rhinorrhea or sore throat Cardiovascular Cardiovascular: Denies chest pain or palpitations Respiratory/Chest Respiratory/Chest: Reports cough and dyspnea Gastrointestinal Gastrointestinal: Denies abdominal pain, nausea or vomiting Genitourinary Genitourinary ED: Denies dysuria Musculoskeletal Musculoskeletal: Reports back pain; Denies extremity pain Integumentary Denies Abrasions or rash Neurologic Neurologic: Denies headache(s) or weakness Psychiatric Psychiatric: Denies anxiety or depression Allergic/Immunologic Allergic/Immunologic ED: Denies lip swelling or urticaria EXAM Physical Exam Const Vital Signs: 05/13/23 14:47 05/13/23 14:45 05/13/23 15:13 Temperature 97.2 F L Temperature Source Temporal Pulse Rate 86 Respiratory Rate 18 Respiratory Effort Short of Breath Short of Breath Respiratory Depth Normal Respiratory Pattern Normal Normal Blood Pressure 122/83 H Blood Pressure Mean 96 Pulse Ox 95 Oxygen Delivery Method Room Air Room Air Positive well nourished and well developed General Appearance ED: well developed HEENT Reports moist mucous membranes Eyes EOMs intact bilaterally Neck no lymphadenopathy Chest Wall inspection of chest normal and palpation of chest normal Resp normal respiratory effort and clear to auscultation bilaterally Cardio regular rate and regular rhythm GI non-tender Palpation: soft Extremity normal to inspection Neuro oriented x3 and no sensory deficits noted Motor Exam: strength 5/5 throughout Psych mental status grossly normal Skin no rashes or lesions noted MDM MDM MDM Narrative Medical decision making narrative: Patient placed on director of cardiac rehabilitation. EKG obtained to evaluate for cardiac arrhythmia/ischemia. Chest x-ray obtained to evaluate for acute lung pathology, cardiac size, or mediastinal abnormality. Labwork obtained to evaluate for leukocytosis, anemia, and electrolyte derangement. Patient given a liter IV fluids. Swab for COVID and influenza repeated. Lab Data Labs: Laboratory Results - last 24 hr 05/13/23 15:05 WBC 13.3 H RBC 4.89 Hgb 14.9 Hct 46.0 MCV 94.1 MCH 30.5 MCHC 32.4 RDW Std Deviation 45.2 H RDW Coeff of [place] 13.1 Plt Count 247 MPV 10.7 Immature Gran % (Auto) 0.400 Neut % (Auto) 67.8 Lymph % (Auto) 19.6 [place] % (Auto) 9.5 Eos % (Auto) 2.2 Baso % (Auto) 0.5 Absolute Neuts (auto) 9.0 H Absolute Lymphs (auto) 2.61 Nucleated RBC % 0 Sodium 140 Potassium 3.9 Chloride 108 H Carbon Dioxide 27.0 Anion Gap 5 BUN 21 H Creatinine 0.89 Estim Creat Clear Calc 70.08 Est GFR (MDRD) Af Amer 80 Est GFR (MDRD) Non-Af 66 BUN/Creatinine Ratio 23.6 H Glucose 109 H Calcium 8.6 Radiography Chest X-Ray - ED: 2 View, Read by ED Physician and No Infiltrates Diagnostic Testing: Clinical Impression(s) from Imaging Studies Chest X-Ray 05/13/23 15:40 IMPRESSION: No active disease. Electronically Signed: Deshawn Paul MD at 16:47 EDT , EKG Initial EKG: Attestation: I personally reviewed and interpreted this EKG as follows: Interpretation: Sinus Rhythm (Sinus at 73 with no acute ischemia.) Treatment and Re-Evaluation :: CBC was a white count of 13.3 with normal differential. Patient states she was recently on steroids. Chemistry studies are unremarkable with normal renal function and potassium. Glucose is 109. Two-view chest x-ray per my interpretation was chronic changes with no evidence of infiltrate. Radiology interpretation is reviewed and agrees. EKG is sinus at 73 with no ischemia. Swab for COVID and influenza is negative. On repeat evaluation patient states she was feeling better, but again feels weak after getting up to the bathroom and back. Given the duration of her symptoms I will treat her with a course of Zithromax for bronchitis, but did reiterate to her that she does not have evidence of pneumonia at this time. She was advised that we usually take 2 to 3 weeks for symptoms to fully run their course. Supportive cares discussed. Discharge Plan Triage Chief Complaint: Shortness of Breath Other Complaint: Back Weakness ED Provider: Arminda Yancey Dx/Rx/DC Orders Clinical Impression: Bronchitis Instructions: Acute Bronchitis Prescriptions: New azithromycin [Zithromax] 250 mg tablet 250 mg PO DAILY 4 Days Qty: 4 0RF Rx Instructions: start on day 2 of therapy No Action levothyroxine 100 MCG tablet 100 mcg PO SUMOTUWETHFR amlodipine 10 MG tablet 10 mg PO DAILY escitalopram oxalate 10 MG tablet 10 mg PO DAILY metformin 500 MG tablet 500 mg PO DAILY meloxicam 15 mg Tablet 15 mg PO DAILY Gemtesa 75 mg Tablet 75 mg PO DAILY prednisone 20 mg tablet 20 mg PO DAILY 5 Days Qty: 5 0RF azelastine 137 mcg (0.1 %) aerosol,spray 2 spray intranasal BID Qty: 30 0RF Rx Instructions: administer into each nostril hydrocodone-homatropine [Hycodan] 5-1.5 mg/5 mL (5 mL) syrup 5 ml PO 4X/DAY PRN PRN (Reason: cough) 7 Days Qty: 140 0RF Primary Care Provider: Gretel Mane Referrals: Gretel Mane, [employer]-C [Primary Care Provider] - 1 Week Disposition Disposition: Home, Self Care
[2023-05-13] MEDS: 0.9% Normal Saline 1,000 ML 1000 ML IV (15:16)
[2023-05-13 15:17] LABS: Absolute Lymphocyte Count 2.61 X10^3/uL (0.83-4.51); Basophil# 0.07 X10^3/uL; Basophil% 0.5 % (0-1); Eosinophil# 0.29 X10^3/uL; Eosinophils% 2.2 % (0-5); Hemoglobin 14.9 g/dL (12.0-15.0); Lymphocyte # 2.61 X10^3/ul (0.83-4.51); Lymphocyte % 19.6 % (19-41); Mean Corp Hgb Conc 32.4 g/dL (32-36); Mean Corpuscular Hgb 30.5 pg (27.0-32.0); Mean Corpuscular Volume 94.1 fL (81-99); Mean Platelet Vol. 10.7 fl (6.2-12.0); Monocyte# 1.26 X10^3/uL; Monocyte% 9.5 % (0-10); NRBC Flagged by Analyzer 0 % (0-5); Neutrophil # 9.04 X10^3/uL (2.7-7.7); Neutrophil % 67.8 % (47-70); Platelet Count 247 K/mm3 (150-450); RBC Distribution Width CV 13.1 % (11.6-14.6); RBC Distribution Width SD 45.2 fl (35.1-43.9); Red Blood Count 4.89 M/mm3 (4.2-5.4); White Blood Count 13.3 K/mm3 (4.4-11.0)
[2023-05-13 15:35] LABS: Anion Gap 5 (5-15); BUN 21 mg/dL (7-18); BUN/Creat Ratio 23.6 RATIO (10-20); Calcium,Total 8.6 mg/dL (8.5-10.1); Chloride 108 mmol/L (98-107); Creatinine, Serum 0.89 mg/dL (0.55-1.02); EST Glomerular Filtration Rate 66 mL/min (>60); Est Glom Filt Rate - Afr Amer 80 mL/min (>60); Estimated Creatinine Clearance 70.08 ml/min; Glucose 109 mg/dL (74-106); Potassium 3.9 mmol/L (3.5-5.1); Sodium Level 140 mmol/L (136-145)
--- NOTE | 2023-05-13 15:40 | RAD_ITS ---
STUDY: X-RAY CHEST REASON FOR EXAM: Female, 73 years old. cough TECHNIQUE: PA and lateral views of the chest. COMPARISON: 12/23/2022 FINDINGS: The lungs are clear and expanded. There is no demonstrated pleural abnormality. Normal size heart. Normal mediastinum and beth. Normal visualized pulmonary arteries. Normal visualized aortic arch and descending thoracic aorta. S-shaped scoliosis of the thoracic spine. Normal visualized ribs, clavicles, and shoulders. There is no demonstrated abnormality of the visualized soft tissue structures of the upper abdomen. RAD/Chest PA and Lateral IMPRESSION: No active disease. Electronically Signed: Deshawn Paul MD at 16:47 EDT ,
[2023-05-13] MEDS: Azithromycin 250 MG Tablet 500 MG PO (17:05)
== END 2023-05-13 17:30 | disposition home or self-care (01) ==
PROVIDERS: Emergency Provider Emergency Medicine; PCP Nurse Practitioner Family; Visit Provider Emergency Medicine
DX: R53.1 Weakness (principal); J40 Bronchitis, not specified as acute or chronic
CPT/HCPCS: 71046; 80048; 85025; 87428; 93005; 99285

== ENCOUNTER 2023-07-30 13:32 | Outpatient (CLI) | payer MEDICARE, OTHER, SELFPAY ==
[2023-07-30 13:51] VITALS: BP 125/72; PULSE 63; RESP 16; TEMP 36.1; O2SAT 94; BMI 33.3
[2023-07-30] MEDS: DENOSUMAB 60 MG/ML SC (13:54)
== END 2023-07-30 13:33 | disposition home or self-care (01) ==
PROVIDERS: PCP Nurse Practitioner Family; Referring Provider Nurse Practitioner; Visit Provider Nurse Practitioner
DX: M81.0 Age-related osteoporosis without current pathological fracture (principal)
CPT/HCPCS: 96372; J0897

== ENCOUNTER 2023-08-09 12:30 | Outpatient (RCR) | payer MEDICARE, OTHER, SELFPAY ==
--- NOTE | 2023-07-15 12:16 | HP.PTEVAL ---
Patient's Visit Information Visit Information Visit Information: LAISHA DELGADO is a 73 year old F referred to Physical Therapy by SERVANDO Johnson with a diagnosis of L back pain. Date of Evaluation: 07/15/23 Physical Therapist: Babak Sharma, PT, ATC Visit Plan Frequency: 2-3x /Week Duration: 3 Weeks Plan: DTR to L interscap region, scap stab ex's, UBE, and HEP Subjective Subjective: Pt reports she woke up one morning and her L upper back near her scapula was sore. Pt reports her pain had an insidious onset in nature. Pt reports her pain is still there and nothing has helped at this time. P)t notes she has had massage which did help a little bit, but it just wont go away. Pt denies tingling or numbness in her UE's at this time. Pt reports no sleep difficulty at this time secondary to pain. Pt reports she was sick at the time and was coughing which maybe what caused her pain. Pt reports she has pain if she moves her L shoulder. Pt is R hand dominant. Pt reports she does have neck pain today. 0/10 pain at rest today, 7/10 pain at worst. Pain L post shoulder pain: Pain Intensity (Out of 10): 0 Pain Intensity Range: 7 Objective Objective: Neuro: B UE sensation is WNL to light touch. B bicipital reflex= 2/3 ROM: B UE's are WNL when compared bilaterally. MMT: B UE's are 5/5 throughout repeated movements: flex and ext NE Palpation: Pt presents with a notable mass in the L interscapular region. Balance/Special Test Scores Oswestry Low Back Score: 17 Goals Goal 1:: Decrease L interscap pain x 50% to aid with IADL's Goal Time Frame: 4-6 Weeks Goal 2:: I with HEP Goal Time Frame: 4-6 Weeks Goal 3:: Pt will be able to perform all IADL's without limitation Goal Time Frame: 4-6 Weeks Rehabilitation Potential Physical Therapy Diagnosis: Pt has L interscap pain and difficulty with IADL's secondary to L rhomboid strain Rehabilitation Potential: Good Anticipated Interventions Text: Thank you for the opportunity to evaluate your patient. For Medicare and Medicare HMO plans, please review the plan of care and approve it. It will need to be FAXED BACK to us at [phone] for Medicare purposes. For Medicare only, by signing this I certify the plan of care. Please let me know if there are questions or concerns regarding this plan of care. Physician Signature: Date:
--- NOTE | 2023-08-09 13:13 | HP.PTDCSUM ---
Discharge Summary D/C summary: It has been my pleasure to treat LAISHA DELGADO referred by Gretel Mane NP-C, with the diagnosis of L back pain for a total of 7 visit(s). Discharge Date: Please see the following information for a summary of their discharge status. Subjective Subjective: It only hurts if I push on it. Pain L post shoulder pain: Pain Intensity (Out of 10): 0 Overall Improvement % Improvement: 50 Objective Objective/Function: L shoulder pain 0/10 Pt is no longer limited with any IADL's Pt is I with HEP Rx goals achieved Goals Goal 1:: Decrease L interscap pain x 50% to aid with IADL's Goal Progress: Goal Met Goal 2:: I with HEP Goal Progress: Goal Met Goal 3:: Pt will be able to perform all IADL's without limitation Goal Progress: Goal Met Plan Plan: Discharge to HEP D/C Information d/c sentence: If there are questions or concerns regarding this patient's physical therapy, please feel free to call me at [phone]. Thank you for the referral of this patient. Sincerely, Babak Sharma, PT, ATC Balance/Gait/Functional tests Balance/Special Test Scores Oswestry Low Back Score: 4 Improvement % Improvement: 50
== END 2023-08-09 19:00 | disposition home or self-care (01) ==
LOC: PT 12:30
PROVIDERS: PCP Nurse Practitioner Family; Referring Provider Nurse Practitioner Family; Visit Provider Nurse Practitioner Family
DX: M54.6 Pain in thoracic spine (principal)
CPT/HCPCS: 97110; 97140; 97161; 97164

== ENCOUNTER → 2023-09-05 | Outpatient (CLI) | payer MEDICARE, OTHER, SELFPAY ==
[2023-09-11 16:38] LABS: HPV Reflexed? NOT INDICATED
== END | disposition home or self-care (01) ==
LOC: LABSPEC 16:42
PROVIDERS: PCP Nurse Practitioner Family; Referring Provider Obstetrics & Gynecology; Visit Provider Obstetrics & Gynecology
DX: Z91.89 Other specified personal risk factors, not elsewhere classified (principal)
CPT/HCPCS: 88175; G0145

== ENCOUNTER → 2023-09-19 | Outpatient (CLI) | payer MEDICARE, OTHER, SELFPAY ==
--- NOTE | 2023-09-19 08:19 | US_ITS ---
STUDY: ULTRASOUND OF THE FEMALE PELVIS - COMPLETE REASON FOR EXAM: Female, 73 years old. Fluid in endometrial cavity LMP: Patient is postmenopausal. TECHNIQUE: Transabdominal and Transvaginal TECHNICAL QUALITY: Adequate. COMPARISON: Comparison is made with prior study dated August 13, 2022. FINDINGS: The uterus is retroflexed and is tilted to the left side of the pelvis. The uterus measures 5.2 cm x 4.9 cm x 3 cm. Normal uterine cervix. The endometrium is thickened and measures 4 mm in thickness, and is fluid distended. There is no demonstrated endometrial mass. 1.5 cm x 1.8 cm x 1.3 cm fundal fibroid. Numerous small myometrial calcifications. I.U.D. - The patient does not have an I.U.D. The right ovary is visualized. The right ovary measures 2 cm x 1.7 cm x 1 cm. There is no right ovarian cyst or ovarian mass. There is no visualized right adnexal mass or complex lesion. There is normal arterial and normal venous vascularity. The left ovary is visualized. The left ovary measures 1.8 cm x 1.1 cm x 1.4 cm. There is no left ovarian cyst or ovarian mass. There is no visualized left adnexal mass or complex lesion. There is normal arterial and normal venous vascularity. There is no fluid in the cul-de-sac. The pre void volume of the bladder was 163 ml. US/Pelvic w/ Transvaginal IMPRESSION: Thickened endometrium with fluid in the endometrial cavity. Fibroid uterus. Electronically Signed: Jose Billy MD at 15:22 EST ,
== END | disposition home or self-care (01) ==
LOC: OPUS 08:18
PROVIDERS: PCP Nurse Practitioner Family; Referring Provider Obstetrics & Gynecology; Visit Provider Obstetrics & Gynecology
DX: N85.9 Noninflammatory disorder of uterus, unspecified (principal)
CPT/HCPCS: 76830; 76856

== ENCOUNTER 2023-12-19 11:43 | Emergency (ER) | payer MEDICARE, OTHER, SELFPAY ==
[2023-12-19 11:44] VITALS: BP 158/72; PULSE 101; RESP 18; TEMP 36.6; O2SAT 96
--- NOTE | 2023-12-19 12:26 | EX.ED.DYSGE1 ---
HPI <SERVANDO De Leon - Last Filed: 12/19/23 14:18> History of Present Illness Chief Complaint: Abd Pain Narrative Narrative: Patient is a 73-year-old female with history of hypertension, diabetes, hypothyroidism, recently had a right knee replacement in October 2023, patient did have a small superficial blood clot to the ankle which is now on Eliquis. Patient states she continues to have pain to her right knee, she was having some inflammation and the doctor put her on Celebrex. Per the patient, since she started taking the Celebrex, only for 3 days, she had some burning in her lips as well as her abdomen. She has then stop the Celebrex. She still states that she does have burning and discomfort in her abdomen as well as her lips. The last time she took the Celebrex was on December 15, 2023. She denies any fever or chills. She states today she was here because she is so nauseous and having a decreased appetite. PFS <SERVANDO De Leon - Last Filed: 12/19/23 14:18> [facility] Medical History Diabetes GERD (gastroesophageal reflux disease) Hypertension Hypothyroid Osteoarthritis Home Medications amlodipine 10 mg tablet 10 mg PO DAILY 06/11/17 [History Last Taken Unknown] escitalopram oxalate 10 mg tablet 10 mg PO DAILY 06/11/17 [History Last Taken Unknown] levothyroxine 100 mcg tablet 100 mcg PO SUMOTUWETHFR 06/11/17 [History Last Taken Unknown] metformin 500 mg tablet,extended release 24 hr 500 mg PO BID 11/16/18 [History Last Taken Unknown] vibegron 75 mg tablet (Gemtesa) 75 mg PO DAILY 01/29/23 [History Last Taken Unknown] azelastine 137 mcg (0.1 %) nasal spray aerosol 2 spray intranasal BID #30 mL 05/01/23 [Rx Last Taken Unknown] hydrocodone-homatropine 5 mg-1.5 mg/5 mL (5 mL) oral syrup (Hycodan) 5 ml PO 4X/DAY PRN PRN cough 7 days #140 mL 05/01/23 [Rx Last Taken Unknown] denosumab 60 mg/mL subcutaneous syringe (Prolia) 60 mg subcut .[id number] 11/21/23 [History Last Taken Unknown] oxybutynin chloride 10 mg tablet,extended release 24 hr 10 mg PO DAILY 07/30/23 [History Last Taken Unknown] vit C 250 mg-vit E 90 mg-zinc 40 mg-copper 1 [id number] capsule (PreserVision AREDS-2) 1 tab PO BID 07/30/23 [History Last Taken Unknown] ondansetron 4 mg disintegrating tablet 4 mg PO Q8H PRN PRN Nausea #14 tabs 12/19/23 [Rx Last Taken Unknown] pantoprazole 40 mg tablet,delayed release (Protonix) 40 mg PO DAILY #14 tabs 12/19/23 [Rx Last Taken Unknown] Allergy/AdvReac Type Severity Reaction Status Date / Time Penicillins Allergy Unknown Verified 12/19/23 11:44 Family History Mother Lung cancer Surgical History Status post total left knee replacement Social History household members: none Smoking Status: Never smoker alcohol intake: never substance use type: does not use caffeine: No what type of physical activity do you participate in: none seatbelt use: always do you feel safe at home: Yes additional social history: ROS <Sahil Fraire, JIMMY-Sandra - Last Filed: 12/19/23 14:18> ROS ED ROS Narrative Constitutional: Negative for fever, chills, weight loss, weakness Eyes: Negative for vision loss, vision change, double vision ENT: Negative for any sore throat, ear pain, congestion. Positive for lip burning Cardiovascular: Negative for any chest pain, tightness, palpitations Respiratory: Negative for any cough, sputum production, hemoptysis, dyspnea, dyspnea on exertion, orthopnea Gastrointestinal: Negative for any vomiting, diarrhea, constipation, blood in stool, blood in vomit. Positive for abdominal burning, nausea : Negative for any urinary frequency, dysuria, retention, blood in urine Muscle skeletal: Negative for any neck pain, back pain Neurological: Negative for any headache, syncope, dizziness Skin: Negative for any rashes, itching, abrasions, lacerations Psychiatric: Negative for any depression, anxiety, stress, suicidal ideation, homicidal ideation Hematologic: Negative for any excessive bruising, easy bleeding EXAM <SERVANDO De Leon - Last Filed: 12/19/23 14:18> Physical Exam Narrative Exam Narrative: Vital signs reviewed. HEET: Head normocephalic atraumatic, TMs clear bilaterally. Posterior pharynx is clear, moist mucous membranes. Nares clear bilaterally. Neck: Supple with no lymphadenopathy or tenderness. No signs of meningismus. Cardiac: Regular rate and rhythm no murmurs gallops or rubs, equal peripheral pulses bilaterally. Respiratory: Lungs clear to auscultation bilaterally. No chest tenderness. Abdomen: Soft, nontender, nondistended. No abdominal bruit or pulsatile masses. No hepatosplenomegaly Extremities: No peripheral edema, no signs of gross trauma or deformity. Active full range of motion of all extremities. Patient's right leg does look more erythematous, more swollen than the left leg. This could be secondary to inflammation from the knee surgery, however there is no evidence of significant cellulitis, septic joint, patient is currently on Eliquis for a superficial PE for the last 2 to 3 months. Neuro: Cranial nerves II through XII intact, no focal neurological deficits. Skin: Clean dry and intact with no rash, purpura, petechiae, vesicles or pustules. Backs/flank: No CVA tenderness, no midline spinal tenderness, no deformity. Psych: Normal mood and affect. No SI, HI or acute psychosis. Const Vital Signs: 12/19/23 11:44 12/19/23 13:32 Temperature 98 F 98.6 F Temperature Source Temporal Oral Pulse Rate 101 H 89 Respiratory Rate 18 16 Blood Pressure 158/72 H 149/64 H Blood Pressure Mean 100 92 Pulse Ox 96 96 Oxygen Delivery Method Room Air Room Air Positive well nourished and well developed General Appearance ED: well developed <Dr. Humphrey Barrera MD - Last Filed: 12/19/23 13:48> Physical Exam Const Vital Signs: 12/19/23 11:44 12/19/23 13:32 Temperature 98 F 98.6 F Temperature Source Temporal Oral Pulse Rate 101 H 89 Respiratory Rate 18 16 Blood Pressure 158/72 H 149/64 H Blood Pressure Mean 100 92 Pulse Ox 96 96 Oxygen Delivery Method Room Air Room Air MDM <Sahil FraireSERVANDO - Last Filed: 12/19/23 14:18> [facility] Lab Data Labs: Laboratory Results - last 24 hr 12/19/23 12:15 WBC 9.8 RBC 4.74 Hgb 14.5 Hct 44.6 MCV 94.1 MCH 30.6 MCHC 32.5 RDW Std Deviation 47.5 H RDW Coeff of [place] 13.6 Plt Count 285 MPV 10.9 Immature Gran % (Auto) 0.300 Neut % (Auto) 68.8 Lymph % (Auto) 20.0 [place] % (Auto) 9.3 Eos % (Auto) 1.1 Baso % (Auto) 0.5 Absolute Neuts (auto) 6.7 Absolute Lymphs (auto) 1.95 Nucleated RBC % 0 Sodium 137 Potassium 3.8 Chloride 109 H Carbon Dioxide 23.0 Anion Gap 5 BUN 12 Creatinine 0.61 Est GFR (MDRD) Af Amer 124 Est GFR (MDRD) Non-Af 103 BUN/Creatinine Ratio 19.7 Glucose 117 H Calcium 10.4 H Total Bilirubin 0.70 AST 20 ALT 17 Alkaline Phosphatase 60 Total Protein 7.1 Albumin 4.0 Globulin 3.1 Albumin/Globulin Ratio 1.3 Lipase 15 Treatment and Re-Evaluation :: Differential diagnosis includes however is not limited to: Cellulitis, electrolyte abnormality, reaction from Celebrex, bowel obstruction, marked inflammation secondary to postsurgical incisions Patient appears to be in no obvious respiratory distress, patient states today the burning is less however the patient is significantly nauseous and this is what brought her to the emergency department. Patient will receive some basic laboratory values, patient received IV fluids, IV Zofran. I did look up the drug Celebrex, the adverse reactions do say that there can be some skin burning or sensations as well as rash. Patient CBC was unremarkable, chemistries were unremarkable, lipase was negative. Patient did feel better with IV fluids, Zofran, Reglan as well as Mylanta. At this time, Polly this is secondary to the Celebrex. I spoke with the patient at length, the patient will continue to take her daily medications. Patient will be placed on a 2-week course of PPI, as well as nausea medicine for home. She instructed to follow-up with her PCP as well as her surgeon. All questions were answered, patient stable for discharge <Dr. Humphrey Barrera MD - Last Filed: 12/19/23 13:48> MDM MDM Narrative Medical decision making narrative: I have personally performed a face to face assessment of the patient and have reviewed the ANDREW Note. I performed a substantive portion of the visit including all aspects of the following. My moe findings include: History is recent right TKA, started Celebrex around a week ago, she states she took 3 days worth and stopped it because she started getting burning throughout her abdomen and nausea. The burning goes up some. She denies any dyspnea or other systemic symptoms. No melena or bright red blood per rectum. Exam is abdomen soft nontender nondistended. No tachycardia. Will-appearing. Right knee moves without difficulty, there is very slight blanching hyperemia anteriorly without excessive warmth compared to the surrounding areas. Surgical incision well-healing. Medical Decison Making knee appears to be doing well clinically. Abdomen is benign. Her labs are normal. Certainly this could be a side effect from the medications could also be functional GI discomfort related to the medication. Agree with holding off on the anti-inflammatories for now. We will treat her nausea, potentially put her on a 2-week course of a PPI and have her follow-up closely. Other additions or changes: [None] Lab Data Labs: Laboratory Results - last 24 hr 12/19/23 12:15 WBC 9.8 RBC 4.74 Hgb 14.5 Hct 44.6 MCV 94.1 MCH 30.6 MCHC 32.5 RDW Std Deviation 47.5 H RDW Coeff of [place] 13.6 Plt Count 285 MPV 10.9 Immature Gran % (Auto) 0.300 Neut % (Auto) 68.8 Lymph % (Auto) 20.0 [place] % (Auto) 9.3 Eos % (Auto) 1.1 Baso % (Auto) 0.5 Absolute Neuts (auto) 6.7 Absolute Lymphs (auto) 1.95 Nucleated RBC % 0 Sodium 137 Potassium 3.8 Chloride 109 H Carbon Dioxide 23.0 Anion Gap 5 BUN 12 Creatinine 0.61 Est GFR (MDRD) Af Amer 124 Est GFR (MDRD) Non-Af 103 BUN/Creatinine Ratio 19.7 Glucose 117 H Calcium 10.4 H Total Bilirubin 0.70 AST 20 ALT 17 Alkaline Phosphatase 60 Total Protein 7.1 Albumin 4.0 Globulin 3.1 Albumin/Globulin Ratio 1.3 Lipase 15 Discharge Plan Triage Chief Complaint: Abd Pain ED Midlevel Provider: Sahil Fraire ED Provider: Humphrey Barrera Dx/Rx/DC Orders Clinical Impression: Abdominal burning sensation in right upper quadrant, Nausea Instructions: ED Gastroenteritis, Viral (Adult), ED Vomiting (Adult) Prescriptions: New pantoprazole [Protonix] 40 mg tablet,delayed release (DR/EC) 40 mg PO DAILY Qty: 14 0RF ondansetron 4 mg tablet,disintegrating 4 mg PO Q8H PRN PRN (Reason: Nausea) Qty: 14 0RF No Action levothyroxine 100 MCG tablet 100 mcg PO SUMOTUWETHFR amlodipine 10 MG tablet 10 mg PO DAILY escitalopram oxalate 10 MG tablet 10 mg PO DAILY metformin 500 MG tablet 500 mg PO BID Gemtesa 75 mg Tablet 75 mg PO DAILY oxybutynin chloride 10 mg tablet extended release 24hr 10 mg PO DAILY PreserVision AREDS-2 250-90-40-1 mg capsule 1 tab PO BID Prolia 60 mg/mL syringe 60 mg subcut .[id number] azelastine 137 mcg (0.1 %) aerosol,spray 2 spray intranasal BID Qty: 30 0RF Rx Instructions: administer into each nostril hydrocodone-homatropine [Hycodan] 5-1.5 mg/5 mL (5 mL) syrup 5 ml PO 4X/DAY PRN PRN (Reason: cough) 7 Days Qty: 140 0RF Primary Care Provider: Gretel Mane Referrals: Gretel Mane, JIMMY-C [Primary Care Provider] - Activity Restrictions/Additional Instructions: Please follow-up outpatient. Disposition Disposition: Home, Self Care
[2023-12-19] MEDS: Ondansetron 4 MG/2 ML Vial IV (12:34)
[2023-12-19] MEDS: 0.9% Normal Saline (1000mL) 1,000 ML 1000 ML IV (12:34)
[2023-12-19 12:38] LABS: Absolute Lymphocyte Count 1.95 X10^3/uL (0.83-4.51); Absolute Neutrophil Count 6.7 X10^3/uL (2.0-7.7); Basophil# 0.05 X10^3/uL; Basophil% 0.5 % (0-1); Eosinophil# 0.11 X10^3/uL; Eosinophils% 1.1 % (0-5); Hematocrit 44.6 % (37-47); Hemoglobin 14.5 g/dL (12.0-15.0); Lymphocyte # 1.95 X10^3/ul (0.83-4.51); Mean Corp Hgb Conc 32.5 g/dL (32-36); Mean Corpuscular Hgb 30.6 pg (27.0-32.0); Mean Corpuscular Volume 94.1 fL (81-99); Mean Platelet Vol. 10.9 fl (6.2-12.0); Monocyte# 0.91 X10^3/uL; Monocyte% 9.3 % (0-10); NRBC Flagged by Analyzer 0 % (0-5); Neutrophil # 6.71 X10^3/uL (2.7-7.7); Neutrophil % 68.8 % (47-70); Platelet Count 285 K/mm3 (150-450); RBC Distribution Width CV 13.6 % (11.6-14.6); RBC Distribution Width SD 47.5 fl (35.1-43.9); Red Blood Count 4.74 M/mm3 (4.2-5.4); White Blood Count 9.8 K/mm3 (4.4-11.0)
[2023-12-19 12:53] LABS: ALB/GLOB Ratio 1.3 RATIO (0.9-2.4); AST(SGOT) 20 U/L (15-37); Alanine Aminotransfer ALT/SGPT 17 U/L (13-56); Alkaline Phosphatase 60 U/L (45-117); Anion Gap 5 (5-15); BUN 12 mg/dL (7-18); BUN/Creat Ratio 19.7 RATIO (10-20); Calcium,Total 10.4 mg/dL (8.5-10.1); Chloride 109 mmol/L (98-107); Creatinine, Serum 0.61 mg/dL (0.55-1.02); EST Glomerular Filtration Rate 103 mL/min (>60); Est Glom Filt Rate - Afr Amer 124 mL/min (>60); Globulin 3.1 g/dL (2.2-4.2); Glucose 117 mg/dL (74-106); Lipase 15 U/L (13-75); Potassium 3.8 mmol/L (3.5-5.1); Protein, Total 7.1 g/dL (6.4-8.2); Sodium Level 137 mmol/L (136-145)
[2023-12-19] MEDS: Mag Hydrox/Al Hydrox/Simeth 30 ML UDC PO (13:27)
[2023-12-19] MEDS: Metoclopramide 10 MG/2 ML Vial 5 MG IV (13:27)
[2023-12-19 13:29] VITALS: BMI 30.6
[2023-12-19 13:32] VITALS: BP 149/64; PULSE 89; RESP 16; TEMP 37; O2SAT 96
[2023-12-19 14:28] VITALS: BP 149/64; PULSE 89; RESP 16; TEMP 36.9; O2SAT 96
== END 2023-12-19 14:29 | disposition home or self-care (01) ==
PROVIDERS: Nurse Practitioner; Emergency Provider Emergency Medicine; PCP Nurse Practitioner Family; Visit Provider Emergency Medicine
DX: R10.11 Right upper quadrant pain (principal); E11.9 Type 2 diabetes mellitus without complications; R11.0 Nausea; I10 Essential (primary) hypertension; E03.9 Hypothyroidism, unspecified; Z79.84 Long term (current) use of oral hypoglycemic drugs; Z79.899 Other long term (current) drug therapy
CPT/HCPCS: 80053; 83690; 85025; 96361; 96374; 96375; 99282; J7030; A4216; J2405

== ENCOUNTER 2024-02-05 13:13 | Outpatient (CLI) | payer MEDICARE, OTHER, SELFPAY ==
[2024-02-05 13:39] VITALS: BP 123/74; PULSE 80; RESP 16; TEMP 36.2; O2SAT 95; BMI 30.2
[2024-02-05] MEDS: DENOSUMAB 60 MG/ML SC (13:45)
== END 2024-02-05 23:59 | disposition home or self-care (01) ==
LOC: MEDOUTP 13:14
PROVIDERS: PCP Nurse Practitioner Family; Referring Provider Nurse Practitioner; Visit Provider Nurse Practitioner
DX: M81.0 Age-related osteoporosis without current pathological fracture (principal)
CPT/HCPCS: 96372; J0897

== ENCOUNTER → 2024-03-16 | Outpatient (CLI) | payer MEDICARE, OTHER, SELFPAY ==
--- NOTE | 2024-03-16 13:41 | BI_ITS ---
MAMMOGRAPHY - BILATERAL SCREENING REASON FOR EXAM: Female, 73 years old. Routine annual screening examination. PERTINENT HISTORY: Non-contributory. TECHNIQUE: Digital bilateral breast itzel (3D mammographic acquisition) in the CC and MLO projections. 2-D mediolateral oblique (MLO) and craniocaudad (CC) views of both breasts were obtained. CAD: Full Field Digital Mammography with Computer Added Detection was performed. COMPARISON: Comparison is made with prior examination dated December 06, 2022 and December 04, 2021. FINDINGS: Breast Composition: There are scattered areas of fibroglandular density. There are no dominant masses or suspicious calcifications. No other significant abnormalities are identified. There has been no significant change since the prior study. BI/SCRN MAMM (CAD)W/ITZEL BILAT IMPRESSION: Stable bilateral screening mammogram. Yearly follow-up mammogram recommended. (A) ASSESSMENT CATEGORY: BIRADS Category 1: Negative. A letter regarding these results will be sent to the patient by the facility within 30 days. Approximately 10% of breast cancers are not detected by mammography. A normal mammogram should not delay biopsy of a clinically suspicious abnormality. [id number] Electronically Signed: Jose Billy MD at 14:46 EDT ,
== END | disposition home or self-care (01) ==
LOC: OPBI 13:39
PROVIDERS: PCP Nurse Practitioner Family; Referring Provider Nurse Practitioner Family; Visit Provider Nurse Practitioner Family
DX: Z12.31 Encounter for screening mammogram for malignant neoplasm of breast (principal)
CPT/HCPCS: 77063; 77067

== ENCOUNTER 2024-04-07 11:00 | Outpatient (RCR) | payer MEDICARE, OTHER, SELFPAY ==
--- NOTE | 2023-11-27 16:18 | HP.PTEVAL ---
Patient's Visit Information Visit Information Visit Information: LAISHA DELGADO is a 73 year old F referred to Physical Therapy by Dr. Stacie Rodriguez DO with a diagnosis of R TKA (DOS: 10/28/23). Date of Evaluation: 11/27/23 Physical Therapist: Obey Hernandez DPT Visit Plan Frequency: 3x /Week Duration: 3 Months Plan: -knee ROM (PROM and AROM) pt may need some encouragement to push into end range with pain - quad and HS strengthening (i.e. STS, weighted heel slides, TKE...any ex that also help to increase ROM) >>progress to banded strengthening once full ROM achieved -STM/Stretching/joint mobs to help with pain >>to ITB, quads, hamstrings, distraction and ant/post grade 3 >>if using passive low load stretching like prone hangs or sitting HS stretch, make sure to use OP or weight to increase stress Pt reports high level of pain, but understands thats to be expected and can be pushed, goal is NO AD (HEP: quad set with towel under heel, supine heel slides with strap, HS stretch, SLR, seated self-assisted heel slide) Subjective Subjective: Pt presents to PT s/p R TKA on 10/28/23. Pt was treated for blood clot in hospital in R ankle, denies any calf pain today and is currently on blood thinners. Pt has been taking pain medication consistently. Pt reports losing about 10 pounds since sx, has not had much of an appetite but is getting better. Pt currently using FWW for amb., walking around kitchen frequently and working on flexion ROM. Pt able to sleep in her bed, but has to change positions frequently d/t pain and stiffness. Pt using ice and pain medication to help with pain. Surgeon was happy with progress at 2 week follow up. Pt using shower chair, having set up and clean up assistance with ADLs. Goals: decrease pain, improve indep with ADLs, and amb with no AD (PLOF) Pain Right Knee: Pain Intensity (Out of 10): 6 Pain Intensity Range: 5 and 8 Objective Objective: EDEMA: Patellar R knee 17, 6 suprapatellar 20 Patellar L knee 15.5 ROM: ext lacking 15 deg, flex 93 deg OBSERVATION: incision healing well and no bandage, no redness or calf pain on RLE, compression sock donned only on LLE, swelling and coloring improved Goals Goal 1:: Pt will achieve 0-0-120 of R knee ROM Goal Time Frame: 4-6 Weeks Goal 2:: Pt will demonstrate symmetrical patellar girth (decreased swelling) Goal Time Frame: 2-4 Weeks Goal 3:: Pt will demonstrate symmetrical LE strength with <2/10 pain Goal Time Frame: 8-12 Weeks Goal 4:: Pt will amb. with no AD and normalized gait mechanics Goal Time Frame: 8-12 Weeks Rehabilitation Potential Physical Therapy Diagnosis: Pt presents to PT with R knee pain, swelling, decreased knee ROM, and decreased strength. Pt would benefit from skilled PT services to address LE strength, ROM, and gait mechanics with LRD to increase pt indep with ADLs. Rehabilitation Potential: Good Anticipated Interventions Patient/Client Instruction: Educate patient on: Plan of Care For the Purpose of:: To decrease pain, To decrease swelling/inflammation, To increase ROM, To improve muscle performance and motor function, To improve ability to perform ADL's, To increase tolerance to activity/condition/position, To improve performance and independence with ADL's, To decrease level of supervision to perform tasks, To improve ability of physical actions for home/community/work/leisure, To improve gait and locomotor functions, To improve health of tissue, To decrease soft tissue restriction, To increase flexibility/ROM, To improve endurance, To improve balance, To improve safety with gait, To assume or resume ADL's, To reduce risk of recurrence, To improve safety, To improve health and function, To foster healthy habits, To improve self management, To improve ability to perform tasks related to life management and To improve tolerance to ADL's Therapeutic Exercise to Include: Strength training, Balance training, Body mechanics, Postural training, Flexibilty training, Gait and locomotor training and Passive ROM For the Purpose of:: To decrease pain, To decrease swelling/inflammation, To increase ROM, To improve muscle performance and motor function, To improve ability to perform ADL's, To increase tolerance to activity/condition/position, To improve performance and independence with ADL's, To decrease level of supervision to perform tasks, To improve ability of physical actions for home/community/work/leisure, To improve gait and locomotor functions, To improve safety with gait, To assume or resume ADL's, To improve health and function, To improve decision making, To improve self management, To improve ability to perform tasks related to life management and To improve tolerance to ADL's Manual Therapy Techniques to Include: Mobilization, Passive ROM and Soft tissue mobilization For the Purpose of:: To decrease pain, To decrease swelling/inflammation, To increase ROM, To improve health of tissue, To decrease soft tissue restriction and To increase flexibility/ROM Assistive Devices: Cane For the Purpose of:: To improve gait and locomotor functions, To improve balance, To improve safety with gait, To assume or resume ADL's, To improve safety, To foster healthy habits and To improve decision making Cryotherapy (ice pack, ice massage): Yes Vasopneumatic device: Yes For the Purpose of:: To decrease pain, To decrease swelling/inflammation, To increase ROM and To improve nutrient delivery to tissue Text: Thank you for the opportunity to evaluate your patient. For Medicare and Medicare HMO plans, please review the plan of care and approve it. It will need to be FAXED BACK to us at [phone] for Medicare purposes. For Medicare only, by signing this I certify the plan of care. Please let me know if there are questions or concerns regarding this plan of care. Physician Signature: Date:
--- NOTE | 2023-12-16 11:53 | HP.PTREVAL ---
Re-Evaluation Intro: Dr. Stacie Rodriguez, DO, It has been my pleasure to treat LAISHA DELGADO over the last 9 visits for R TKA (DOS: 10/28/23). Please see the progress note below for an update on the physical therapy plan of care! Subjective Subjective: Pt. reports having 5/10 pain in her R knee pre treatment today. She reports having some hyper sensitivity. Pt. sway her physician whom was pleased with ROM. She arrived today with use of SPC. Objective Objective/Function: ROM: AROM: R knee: 0-12-106deg. PROM: R knee: 0-10-110deg. MMT: R knee: ext 9.4#, flexion 7.9#; hip: flexion 4.5#, abd 4.9#. GAIT: pt. ambulates with SPC, but has a marked loss of R knee extension during stance phase. Pt. had adequate knee flexion during swing phase. STAIRS: Pt. able to complete with step to pattern to descend, and ascend with use of BHR. Plan Plan Plan: Cont. to work on end ranges of motion, stress end range extension allowing for better gait pattern. Instruct patient patient in HEP for better follow through. Once extension ROM as improved progress strengthening as tolerated. Goals Goals Goal 1:: Pt will achieve 0-0-120 of R knee ROM Goal Time Frame: 4-6 Weeks Goal Progress: Progressing Goal 2:: Pt will demonstrate symmetrical patellar girth (decreased swelling) Goal Time Frame: 2-4 Weeks Goal Progress: Progressing Goal 3:: Pt will demonstrate symmetrical LE strength with <2/10 pain Goal Time Frame: 8-12 Weeks Goal Progress: Progressing Goal 4:: Pt will amb. with no AD and normalized gait mechanics Goal Time Frame: 8-12 Weeks Goal Progress: Progressing Anticipated Interventions Anticipated Interventions Patient/Client Instruction: Educate patient on: Plan of Care For the Purpose of:: To decrease pain, To decrease swelling/inflammation, To increase ROM, To improve muscle performance and motor function, To improve ability to perform ADL's, To increase tolerance to activity/condition/position, To improve performance and independence with ADL's, To decrease level of supervision to perform tasks, To improve ability of physical actions for home/community/work/leisure, To improve gait and locomotor functions, To improve health of tissue, To decrease soft tissue restriction, To increase flexibility/ROM, To improve endurance, To improve balance, To improve safety with gait, To assume or resume ADL's, To reduce risk of recurrence, To improve safety, To improve health and function, To foster healthy habits, To improve self management, To improve ability to perform tasks related to life management and To improve tolerance to ADL's Therapeutic Exercise to Include: Strength training, Balance training, Body mechanics, Postural training, Flexibilty training, Gait and locomotor training and Passive ROM For the Purpose of:: To decrease pain, To decrease swelling/inflammation, To increase ROM, To improve muscle performance and motor function, To improve ability to perform ADL's, To increase tolerance to activity/condition/position, To improve performance and independence with ADL's, To decrease level of supervision to perform tasks, To improve ability of physical actions for home/community/work/leisure, To improve gait and locomotor functions, To improve safety with gait, To assume or resume ADL's, To improve health and function, To improve decision making, To improve self management, To improve ability to perform tasks related to life management and To improve tolerance to ADL's Manual Therapy Techniques to Include: Mobilization, Passive ROM and Soft tissue mobilization For the Purpose of:: To decrease pain, To decrease swelling/inflammation, To increase ROM, To improve health of tissue, To decrease soft tissue restriction and To increase flexibility/ROM Assistive Devices: Cane For the Purpose of:: To improve gait and locomotor functions, To improve balance, To improve safety with gait, To assume or resume ADL's, To improve safety, To foster healthy habits and To improve decision making Cryotherapy (ice pack, ice massage): Yes Vasopneumatic device: Yes For the Purpose of:: To decrease pain, To decrease swelling/inflammation, To increase ROM and To improve nutrient delivery to tissue Re-Evaluation Ending Re-evaluation ending: Please do not hesitate to contact me at [phone] by phone or if you have questions or concerns regarding this new plan of care! Sincerely, Obey Hernandez DPT
--- NOTE | 2024-01-10 10:58 | HP.PTREVAL_ITS ---
Re-Evaluation Intro: Dr. Stacie Rodriguez, DO, It has been my pleasure to treat LAISHA DELGADO over the last 19 visits for R TKA (DOS: 10/28/23). Please see the progress note below for an update on the physical therapy plan of care! Subjective Subjective: Pt. reports pain is 6/10 currently. Pt. reports walking more and more, but is still having a lot of pain. She reports difficulty sleeping as well. I talked to her about frequent icing and stretching at home. pt. consents. She is to see physician later next week. Objective Objective/Function: ROM: 0-10-97deg. Pt. is missing 10deg of TKE and still pretty limited with flexion. She reports pain as limiting factor with both motions. She does have a pretty firm end fell in both. MMT: L knee: ext 25.3#, flexion: 23.5# R knee: ext 26.8#, flexion: 17.2# GAIT: Pt. walks with a cane, but does lack TKE during stance phase as well as decreased knee flexion during swing. Pt. is RENARD with cane. STAIRS: PT. completed with 2 HR with reciprocal pattern, increased pain with d escending. Overall she is doing okay, but She really needs to have improvements in her ROM. Pt. reports pain as limiting factor. Her pain seems to be effecting her tolerance to stretching. I would like to work fairly exclusively on ROM including low load and long duration stretching. She is using a restorator at home as well as stair stretching. Plan Plan Plan: I am recerting her for another 4 weeks at 2 a week. Focus on flexion and extension ROM. I am good with her current strength. Pt. is doing well with her functional mobility, but with improved ROM I expect her gait will improve. Balance/Gait/Functional tests Balance/Special Test Scores Lower Extremity Functional Score: 36 TUG Test Time Seconds: 13.1 Tug Test: <20 sec.=mostly independent Goals Goals Goal 1:: Pt will achieve 0-0-120 of R knee ROM (0-10-97deg) Goal Time Frame: 6-8 Weeks Goal Progress: Progressing Goal 2:: Pt will demonstrate symmetrical patellar girth (2 cm off at mid patella) Goal Time Frame: 2-4 Weeks Goal Progress: Progressing Goal 3:: Pt will demonstrate symmetrical LE strength with <2/10 pain Goal Time Frame: 8-12 Weeks Goal Progress: Progressing Goal 4:: Pt will amb. with no AD and normalized gait mechanics Goal Time Frame: 8-12 Weeks Goal Progress: Progressing Anticipated Interventions Anticipated Interventions Patient/Client Instruction: Educate patient on: Plan of Care For the Purpose of:: To decrease pain, To decrease swelling/inflammation, To increase ROM, To improve muscle performance and motor function, To improve ability to perform ADL's, To increase tolerance to activity/condition/position, To improve performance and independence with ADL's, To decrease level of supervision to perform tasks, To improve ability of physical actions for home/community/work/leisure, To improve gait and locomotor functions, To improve health of tissue, To decrease soft tissue restriction, To increase flexibility/ROM, To improve endurance, To improve balance, To improve safety with gait, To assume or resume ADL's, To reduce risk of recurrence, To improve safety, To improve health and function, To foster healthy habits, To improve self management, To improve ability to perform tasks related to life management and To improve tolerance to ADL's Therapeutic Exercise to Include: Strength training, Balance training, Body mechanics, Postural training, Flexibilty training, Gait and locomotor training and Passive ROM For the Purpose of:: To decrease pain, To decrease swelling/inflammation, To increase ROM, To improve muscle performance and motor function, To improve ability to perform ADL's, To increase tolerance to activity/condition/position, To improve performance and independence with ADL's, To decrease level of supervision to perform tasks, To improve ability of physical actions for home/community/work/leisure, To improve gait and locomotor functions, To improve safety with gait, To assume or resume ADL's, To improve health and function, To improve decision making, To improve self management, To improve ability to perform tasks related to life management and To improve tolerance to ADL's Manual Therapy Techniques to Include: Mobilization, Passive ROM and Soft tissue mobilization For the Purpose of:: To decrease pain, To decrease swelling/inflammation, To increase ROM, To improve health of tissue, To decrease soft tissue restriction and To increase flexibility/ROM Assistive Devices: Cane For the Purpose of:: To improve gait and locomotor functions, To improve balance, To improve safety with gait, To assume or resume ADL's, To improve safety, To foster healthy habits and To improve decision making Cryotherapy (ice pack, ice massage): Yes Vasopneumatic device: Yes For the Purpose of:: To decrease pain, To decrease swelling/inflammation, To increase ROM and To improve nutrient delivery to tissue Re-Evaluation Ending Re-evaluation ending: Please do not hesitate to contact me at [phone] by phone or if you have questions or concerns regarding this new plan of care! Sincerely, STORMY DowdT
--- NOTE | 2024-03-09 14:14 | HP.PTREVAL_ITS ---
Re-Evaluation Intro: Dr. Stacie Rodriguez, DO, It has been my pleasure to treat LAISHA DELGADO over the last 36 visits for R TKA (DOS: 10/28/23). Please see the progress note below for an update on the physical therapy plan of care! Subjective Subjective: Pt. reports being HEP compliant. Pt. reports doing well with pool exercises, but was more sore last night. She was unsure why, but is having some issues with family and is stressed. Objective Objective/Function: AROM: 0-5-100deg. PROM 0-4-105deg. MMT: Pt. has symmetrical strength without increase in symptoms. GAIT: Pt. ambulates both with and without AD. She has better gait pattern with use of AD. Pt. does still lack TKE during stance phase, but has improved. Rest of gait is decent. STAIRS: PT. ascends without issues with use of BHR. Descending is more difficult secondary to increased pain. She has early heel off as well. TU.2sec no AD Plan Plan Plan: I want her to continue to work in the aquatic setting. Work on knee ROM into both flexion and extension. Progress stair negotiation and functional mobility as tolerated. Balance/Gait/Functional tests Balance/Special Test Scores Lower Extremity Functional Score: 44 TUG Test Time Seconds: 17.2 Tug Test: <20 sec.=mostly independent 30 Second Chair Rise Test Seconds: 10 Goals Goals Goal 1:: Pt will achieve 0-0-120 of R knee ROM (0-4-105) Goal Time Frame: 6-8 Weeks Goal Progress: Progressing Goal 2:: Pt will demonstrate symmetrical patellar girth Goal Time Frame: 2-4 Weeks Goal Progress: Goal Met Goal 3:: Pt will demonstrate symmetrical LE strength with <2/10 pain Goal Time Frame: 8-12 Weeks Goal Progress: Progressing Goal 4:: Pt will amb. with no AD and normalized gait mechanics Goal Time Frame: 8-12 Weeks Goal Progress: Progressing Goal 5:: LTG: Pt. to negotiate 1 flight of stairs with reciprocal pattern with 1 HR. Goal Time Frame: 4-6 Weeks Goal Progress: Progressing Anticipated Interventions Anticipated Interventions Patient/Client Instruction: Educate patient on: Plan of Care For the Purpose of:: To decrease pain, To decrease swelling/inflammation, To increase ROM, To improve muscle performance and motor function, To improve ability to perform ADL's, To increase tolerance to activity/condition/position, To improve performance and independence with ADL's, To decrease level of supervision to perform tasks, To improve ability of physical actions for home/community/work/leisure, To improve gait and locomotor functions, To improve health of tissue, To decrease soft tissue restriction, To increase flexibility/ROM, To improve endurance, To improve balance, To improve safety with gait, To assume or resume ADL's, To reduce risk of recurrence, To improve safety, To improve health and function, To foster healthy habits, To improve self management, To improve ability to perform tasks related to life management and To improve tolerance to ADL's Therapeutic Exercise to Include: Strength training, Balance training, Body mechanics, Postural training, Flexibilty training, Gait and locomotor training and Passive ROM For the Purpose of:: To decrease pain, To decrease swelling/inflammation, To increase ROM, To improve muscle performance and motor function, To improve ability to perform ADL's, To increase tolerance to activity/condition/position, To improve performance and independence with ADL's, To decrease level of supervision to perform tasks, To improve ability of physical actions for home/ community/work/leisure, To improve gait and locomotor functions, To improve safety with gait, To assume or resume ADL's, To improve health and function, To improve decision making, To improve self management, To improve ability to perform tasks related to life management and To improve tolerance to ADL's Manual Therapy Techniques to Include: Mobilization, Passive ROM and Soft tissue mobilization For the Purpose of:: To decrease pain, To decrease swelling/inflammation, To increase ROM, To improve health of tissue, To decrease soft tissue restriction and To increase flexibility/ROM Assistive Devices: Cane For the Purpose of:: To improve gait and locomotor functions, To improve balance, To improve safety with gait, To assume or resume ADL's, To improve safety, To foster healthy habits and To improve decision making Cryotherapy (ice pack, ice massage): Yes Vasopneumatic device: Yes For the Purpose of:: To decrease pain, To decrease swelling/inflammation, To increase ROM and To improve nutrient delivery to tissue Re-Evaluation Ending Re-evaluation ending: Please do not hesitate to contact me at [phone] by phone or if you have questions or concerns regarding this new plan of care! Sincerely, STORMY DowdT
--- NOTE | 2024-04-07 11:42 | HP.PTDCSUM ---
Discharge Summary D/C summary: It has been my pleasure to treat LAISHA DELGADO referred by Dr. Stacie Rodriguez DO, with the diagnosis of R TKA (DOS: 10/28/23) for a total of 45 visit(s). Discharge Date: 04/07/24 Please see the following information for a summary of their discharge status. Subjective Subjective: Pt. continues to have increased R knee pain. Pt. reports that the pool has been helpful. Pt. reports having 5/10 pain today. Pt. reports being HEP compliant without issues. Pt. Pain Right Knee: Pain Intensity (Out of 10): 5 R steinberg: Pain Intensity (Out of 10): 3 Overall Improvement % Improvement: 50 Objective Objective/Function: ROM: 0-2-105deg. with over pressure at end ranges MMT: RLE: knee ext: 28.5#, flexion 21.3# LLE: knee ext 29.3#, flexion 20.2# GAIT: Pt. has much improved gait pattern. She has a larger step length and decreased lateral hip translation. Pt. does not use an AD with ambulation STIARS: Reciprocal pattern, but is more painful with loading RLE with ascending and descending. She does use B HR to complete TU.39sec, no AD. Goals Goal 1:: Pt will achieve 0-0-120 of R knee ROM (0-2-105) Goal Progress: Progressing Goal 2:: Pt will demonstrate symmetrical patellar girth Goal Progress: Goal Met Goal 3:: Pt will demonstrate symmetrical LE strength with <2/10 pain Goal Progress: Goal Met Goal 4:: Pt will amb. with no AD and normalized gait mechanics Goal Progress: Progressing Goal 5:: LTG: Pt. to negotiate 1 flight of stairs with reciprocal pattern with 1 HR. Goal Progress: Progressing Plan Plan: At this point in time I would like Laisha to work on her pool exercises on her own at this point in time. She has some knee flexion stiffness, but over strength and gait has improved. I talked to her if not seeing continued improvement over the next 6-8 weeks she should follow back up with physician. D/C Information d/c sentence: If there are questions or concerns regarding this patient's physical therapy, please feel free to call me at [phone]. Thank you for the referral of this patient. Sincerely, Obey L Sipos, DPT Balance/Gait/Functional tests Balance/Special Test Scores Lower Extremity Functional Score: 47 TUG Test Time Seconds: 12.39 Tug Test: <20 sec.=mostly independent 30 Second Chair Rise Test Seconds: 10 Improvement % Improvement: 50
== END 2024-04-07 19:00 | disposition home or self-care (01) ==
LOC: PT 11:00
PROVIDERS: PCP Nurse Practitioner Family; Referring Provider Internal Medicine; Visit Provider Internal Medicine
DX: Z96.651 Presence of right artificial knee joint (principal); T84.84XD Pain due to internal orthopedic prosthetic devices, implants and grafts, subsequent encounter
CPT/HCPCS: 97110; 97113; 97116; 97161; 97530

== ENCOUNTER 2024-05-17 21:43 | Emergency (ER) | payer MEDICARE, OTHER, SELFPAY ==
[2024-05-17 21:43] VITALS: BP 147/106; PULSE 81; RESP 16; TEMP 36.7; O2SAT 99
[2024-05-17 21:50] VITALS: BMI 33.7
--- NOTE | 2024-05-17 22:20 | EDS_ITS ---
HPI History of Present Illness Chief Complaint: Lower Extremity Injury Narrative Narrative: 74-year-old female past medical history of previous right total knee arthroplasty in October, has had continued pain and needs to see pain management regarding it. She states that this evening, while she has been doing her own therapy, she was having the soreness more anteriorly. She went to put a long pillow between her legs to elevate her right knee, and when she moved her leg, she had sharp pain in the right posterior aspect of her knee. She denies any fevers or chills, no nausea or vomiting, no redness to the area. She states it felt like her knee was out of place. She was unable to flex it initially as she got pain on the lateral aspect. She has been able to ambulate however. She presents with her daughter because of her right posterior knee pain that happened just prior to arrival. [facility] Medical History Diabetes GERD (gastroesophageal reflux disease) Hypothyroid Hypertension Osteoarthritis Home Medications ?Medication ?Instructions ?Recorded ?Last Taken ?Type amlodipine 10 mg tablet 10 mg PO DAILY 06/11/17 Unknown History escitalopram oxalate 10 mg tablet 10 mg PO DAILY 06/11/17 Unknown History levothyroxine 100 mcg tablet 100 mcg PO SUMOTUWETHFR 06/11/17 Unknown History metformin 500 mg tablet,extended 500 mg PO BID 11/16/18 Unknown History release 24 hr vibegron 75 mg tablet (Gemtesa) 75 mg PO DAILY 01/29/23 Unknown History azelastine 137 mcg (0.1 %) nasal 2 spray intranasal BID #30 mL 05/01/23 Unknown Rx spray hydrocodone-homatropine 5 mg-1.5 5 ml PO 4X/DAY PRN PRN cough 7 05/01/23 Unknown Rx mg/5 mL (5 mL) oral syrup (Hycodan) days #140 mL denosumab 60 mg/mL subcutaneous 60 mg subcut .[id number] 07/30/23 Unknown History syringe (Prolia) oxybutynin chloride 10 mg 10 mg PO DAILY 07/30/23 Unknown History tablet,extended release 24 hr vit C 250 mg-vit E 90 mg-zinc 40 1 tab PO BID 07/30/23 Unknown History mg-copper 1 [id number] capsule (PreserVision AREDS-2) ondansetron 4 mg disintegrating 4 mg PO Q8H PRN PRN Nausea #14 tabs 12/19/23 Unknown Rx tablet pantoprazole 40 mg tablet,delayed 40 mg PO DAILY #14 tabs 12/19/23 Unknown Rx release (Protonix) apixaban 5 mg tablet (Eliquis) 5 mg PO BID 02/05/24 Unknown History celecoxib 100 mg capsule 100 mg PO BID PRN pain #14 caps 05/17/24 Unknown Rx Allergy/AdvReac Type Severity Reaction Status Date / Time Penicillins Allergy Unknown Verified 05/17/24 21:45 Family History Mother Lung cancer Surgical History Status post total left knee replacement Social History household members: none Smoking Status: Never smoker alcohol intake: never substance use type: does not use caffeine: No what type of physical activity do you participate in: none seatbelt use: always do you feel safe at home: Yes additional social history: ROS ROS ED ROS Narrative Review of systems positive for right knee pain, difficulty flexing right knee and pain that is worse with movement. Denies other symptoms. EXAM Physical Exam Narrative Exam Narrative: Afebrile. Vital signs noted. Regular rate and rhythm. Lungs are clear to auscultation bilaterally. Abdomen soft nontender with normal active bowel sounds. Neurological examination nonfocal and nonlateralizing. Able to ambulate in the ED back to cot from bathroom. Inspection of the right knee reveals positive flexion and extension. There is mild tenderness to palpation along the right biceps for Catrachito tendon. She appears neurovascular tact distally with a palpable dorsalis pedis pulse. EHL intact with plantar flexion and dorsiflexion of right foot intact. Const Vital Signs: 05/17/24 21:43 Temperature 98.1 F Temperature Source Temporal Pulse Rate 81 Respiratory Rate 16 Blood Pressure 147/106 H Blood Pressure Mean 119 Pulse Ox 99 Oxygen Delivery Method Room Air MDM MDM MDM Narrative Medical decision making narrative: Differential diagnosis includes but not limited to right hamstring/biceps femoris tendon strain. I do not feel she has a full rupture. I have low suspicion for fracture or dislocation of the right knee based on her physical examination. She was given an Ultram tablet here, and x-rays were obtained of the right knee and 4 views and interpreted by myself independently. I see no evidence of an acute fracture. Normal alignment of hardware. No noted effusion. She will be placed in an Ghulam wrap and told to follow-up with her pain management doctor and her primary care provider. She requested a prescription for celecoxib which she takes from her pain management doctor. I wrote her a short course of therapy. I feel she can be discharged safely home with follow-up. She will continue ice and elevation of her knee at home. Return instructions to the emergency department reviewed. Disposition is discharged home in stable condition. History & Record Review Discussion w/independent historian: Patient Radiography Diagnostic Testing: Clinical Impression(s) from Imaging Studies Knee X-Ray 05/17/24 22:22 IMPRESSION: No acute osseous abnormality of the right knee. Electronically Signed: Ashwin Carranza MD at 23:01 EDT , Discharge Plan Triage Chief Complaint: Lower Extremity Injury ED Provider: Eliceo Crouch Dx/Rx/DC Orders Clinical Impression: Right knee sprain, Hamstring muscle strain Instructions: ED Knee Sprain, ED Muscle Strain, Extremity Prescriptions: New celecoxib 100 mg capsule 100 mg PO BID PRN (Reason: pain) Qty: 14 0RF No Action levothyroxine 100 MCG tablet 100 mcg PO SUMOTUWETHFR amlodipine 10 MG tablet 10 mg PO DAILY escitalopram oxalate 10 MG tablet 10 mg PO DAILY metformin 500 MG tablet 500 mg PO BID Gemtesa 75 mg Tablet 75 mg PO DAILY oxybutynin chloride 10 mg tablet extended release 24hr 10 mg PO DAILY PreserVision AREDS-2 250-90-40-1 mg capsule 1 tab PO BID Prolia 60 mg/mL syringe 60 mg subcut .[id number] azelastine 137 mcg (0.1 %) aerosol,spray 2 spray intranasal BID Qty: 30 0RF Rx Instructions: administer into each nostril hydrocodone-homatropine [Hycodan] 5-1.5 mg/5 mL (5 mL) syrup 5 ml PO 4X/DAY PRN PRN (Reason: cough) 7 Days Qty: 140 0RF Eliquis 5 mg tablet 5 mg PO BID pantoprazole [Protonix] 40 mg tablet,delayed release (DR/EC) 40 mg PO DAILY Qty: 14 0RF ondansetron 4 mg tablet,disintegrating 4 mg PO Q8H PRN PRN (Reason: Nausea) Qty: 14 0RF Primary Care Provider: Gretel Mane Referrals: Gretel Mane, STUDENT DEVELOPMENT ADVISOR-C [Primary Care Provider] - 3-5 Days if not improving Activity Restrictions/Additional Instructions: Follow-up with your pain management physician as well. Continue ice and elevation of your right knee. Return with fever, new or worsening symptoms. Print Language: Azerbaijani Disposition Disposition: Home, Self Care
--- NOTE | 2024-05-17 22:22 | RAD_ITS ---
INDICATION: pain EXAMINATION/TECHNIQUE: X-RAY - RIGHT XR Knee Complete 4 Views or More COMPARISON: 01/11/2023 knee radiographs. FINDINGS: 4 views of the right knee. BONES: Normal anatomic alignment without evidence of fracture or subluxation. No concerning bony lesion or abnormal sclerosis to suggest lesion. JOINTS: Total knee arthroplasty without obvious hardware complication.. SOFT TISSUES: Unremarkable. RAD/Knee 4 or More Views IMPRESSION: No acute osseous abnormality of the right knee. Electronically Signed: Ashwin Carranza MD at 23:01 EDT ,
[2024-05-17] MEDS: traMADol 50 MG Tablet PO (22:29)
== END 2024-05-17 23:49 | disposition home or self-care (01) ==
PROVIDERS: Emergency Provider Emergency Medicine; PCP Nurse Practitioner Family; Visit Provider Emergency Medicine
DX: S86.811A Strain of other muscle(s) and tendon(s) at lower leg level, right leg, initial encounter (principal); E11.9 Type 2 diabetes mellitus without complications; S76.311A Strain of muscle, fascia and tendon of the posterior muscle group at thigh level, right thigh, initial encounter; X58.XXXA Exposure to other specified factors, initial encounter; Y93.89 Activity, other specified; I10 Essential (primary) hypertension; Z96.651 Presence of right artificial knee joint; Z79.01 Long term (current) use of anticoagulants; Z79.84 Long term (current) use of oral hypoglycemic drugs; Z79.899 Other long term (current) drug therapy
CPT/HCPCS: 73564; 99282

== ENCOUNTER → 2024-05-19 | Outpatient (CLI) | payer MEDICARE, OTHER, SELFPAY ==
[2024-05-19 14:34] LABS: Bacteria 0 SEEN /hpf (None Seen); Mucous, Urine 0 SEEN /hpf (<or=2+)
[2024-05-19 14:57] LABS: Color, Urine Yellow (Yellow); Glucose, Dipstick Normal (Normal); Ketone-Dipstick Negative (Negative); Leukocyte Esterase-Dipstick 500 /ul (Negative); Nitrite-Dipstick Negative (Negative); Occult Blood-Urine 10 /ul (Negative); Protein-Dipstick 15 mg/dl (Negative); Urine Bilirubin Dipstick Negative (Negative); Urine Clarity Clear (Clear); Urine Urobilinogen Normal (Normal)
[2024-05-19 15:12] LABS: White Blood Cells 10-25 SEEN /hpf (0-5)
[2024-05-19 15:13] LABS: Calcium Oxalate Crystals Ur 2+ /hpf (<or=2+); Red Blood Cells-Urine 0 SEEN /hpf (0-5); Squamous Epithelial Cells - UA 0-5 SEEN /hpf (5-10)
== END | disposition home or self-care (01) ==
LOC: LABSPEC 14:25
PROVIDERS: PCP Nurse Practitioner Family; Referring Provider Obstetrics & Gynecology; Visit Provider Obstetrics & Gynecology
DX: R30.0 Dysuria (principal)
CPT/HCPCS: 81001; 87086; 87088

== ENCOUNTER 2024-06-23 03:27 | Emergency (ER) | payer MEDICARE, OTHER, SELFPAY ==
[2024-06-23 03:28] VITALS: BP 147/74; PULSE 105; RESP 16; TEMP 36.3; O2SAT 97; BMI 33.1
--- NOTE | 2024-06-23 04:39 | EX.ED.DYSGE1 ---
HPI History of Present Illness Chief Complaint: Sore Throat Narrative Narrative: Chief complaint and HPI: URI symptoms. 74-year-old female with history of HTN, hypothyroidism, DM presents for evaluation of viral type symptoms. Onset of symptoms was yesterday. Patient endorses headache, nasal congestion, sore throat, mild cough. Denies any fever, chills, shortness of breath, chest pain abdominal pain, nausea, vomiting, diarrhea. Patient denies any sick contacts that she knows of. Patient has not taken any [id number] medication. Of note, patient states that she has been having chronic right knee pain she has been seeing her PCP for this as well as physical therapy. She states she went to physical therapy yesterday and she aggravated it. She is requesting Ghulam bandage be applied. Review of systems: See HPI Medications: As listed on the chart Allergies: As listed on the chart PFSH: Per chart Vital signs: As listed on the chart. Reviewed. Physical exam: Gen: A&O x3, NAD Head: Normocephalic, atraumatic Eyes: No sclera icterus, conjunctiva clear, PERRL, EOMI ENT: TMs clear BL, moist mucous membranes, posterior oropharynx mildly erythematous, uvula midline, tonsils not enlarged, no tonsillar exudates, + congestion no sinus tenderness Neck: Trachea midline, No JVD, Full ROM, No meningismus CV: RRR, no murmurs, no peripheral edema Resp: Lungs CTA BL, no w/r/c GI: Abd soft, non-distended, non-tender, no r/r/g Musc: Full ROM, no deformity, right knee has ecchymosis in the lateral distribution of the knee-looks old and patient states that this is old, no swelling of the knee, no erythema or warmth, full range of motion, nontender to palpation Skin: Warm, dry, no rash Neuro: Alert, oriented, grossly intact, sensation intact Psych: Cooperative, appropriate mood and affect [facility] Medical History (Updated 06/23/24 @ 04:[address] Alek Cosme, ) FH: total knee replacement Wears dentures Wears glasses MRSA infection Anxiety History of steroid therapy Thyroid disease Diabetes Arthritis Kidney stones Back pain History of IBS Heartburn History of edema History of DVT (deep vein thrombosis) Diabetes GERD (gastroesophageal reflux disease) Hypothyroid Hypertension Osteoarthritis Home Medications ?Medication ?Instructions ?Recorded ?Last Taken ?Type amlodipine 10 mg tablet 10 mg PO DAILY 06/11/17 Unknown History levothyroxine 100 mcg tablet 100 mcg PO SUMOTUWETHFR 06/11/17 Unknown History metformin 500 mg tablet,extended 500 mg PO DAILY 11/16/18 Unknown History release 24 hr vibegron 75 mg tablet (Gemtesa) 75 mg PO DAILY 01/29/23 Unknown History denosumab 60 mg/mL subcutaneous 60 mg subcut .[id number] 07/30/23 Unknown History syringe (Prolia) cholecalciferol (vitamin D3) 50 50 mcg PO QDAY 05/19/24 Unknown History mcg (2,000 unit) capsule cyanocobalamin (vitamin B-12) 1,000 mcg PO DAILY 06/15/24 Unknown History 1,000 mcg tablet (Vitamin B-12) prednisone 10 mg tablets in a dose See Rx Instructions PO .COMPLEX 06/15/24 Unknown History pack zolpidem 5 mg tablet (Ambien) 5 mg PO QHS PRN sleep 06/15/24 Unknown History misoprostol 200 mcg tablet 200 mcg PO .complex #2 tabs 06/17/24 Unknown Rx (Cytotec) benzonatate 100 mg capsule 100 mg PO TID PRN cough #15 caps 06/23/24 Unknown Rx fluticasone propionate 50 1 spray intranasal DAILY PRN nasal 06/23/24 Unknown Rx mcg/actuation nasal congestion #16 grams spray,suspension (Flonase Allergy Relief) Allergy/AdvReac Type Severity Reaction Status Date / Time Penicillins Allergy Unknown Verified 06/23/24 03:28 Family History Mother Lung cancer Surgical History History of cystoscopy History of total knee replacement Hx of colonoscopy Hx of tonsillectomy Status post total left knee replacement Social History household members: none Smoking Status: Never smoker alcohol intake: never substance use type: does not use caffeine: No what type of physical activity do you participate in: none seatbelt use: always do you feel safe at home: Yes additional social history: EXAM Physical Exam Const Vital Signs: 06/23/24 03:28 06/23/24 04:44 Temperature 97.3 F L 99.2 F H Temperature Source Temporal Pulse Rate 105 H 93 Respiratory Rate 16 16 Blood Pressure 147/74 H 140/74 H Blood Pressure Mean 98 96 Pulse Ox 97 94 Oxygen Delivery Method Room Air MDM MDM MDM Narrative Medical decision making narrative: 74-year-old female presents for evaluation of viral type symptoms. She also has chronic right knee pain and is requesting an Ghulam wrap. She is currently being worked up outpatient for her knee pain. She denies any recent trauma or injury to the knee. Physical exam is unremarkable except for old ecchymosis. Patient's symptoms are consistent with viral syndrome. She was offered flu and COVID testing but declined. She was educated that this is likely viral nature and symptomatic care is required. She was educated to take [id number] cold medicine. Will give her Tessalon Perles for her cough. Flonase for her nasal congestion. Follow-up with PCP. Patient confirmed understanding the plan. No further imaging or testing needed at this time. Impression: 1. Viral syndrome 2. Chronic right knee pain Discharge Plan Triage Chief Complaint: Sore Throat ED Provider: Alek Cosme Dx/Rx/DC Orders Clinical Impression: Viral syndrome Instructions: ED Viral Syndrome (Adult), ED URI, Viral, No Abx (Adult) Prescriptions: New benzonatate 100 mg capsule 100 mg PO TID PRN (Reason: cough) Qty: 15 0RF fluticasone propionate [Flonase Allergy Relief] 50 mcg/actuation spray,suspension 1 spray intranasal DAILY PRN (Reason: nasal congestion) Qty: 16 0RF Rx Instructions: administer into each nostril No Action cholecalciferol (vitamin D3) 50 mcg (2,000 unit) capsule 50 mcg PO QDAY misoprostol [Cytotec] 200 mcg tablet 200 mcg PO .complex Qty: 2 1RF Rx Instructions: take the night before and two hours prior to the procedure levothyroxine 100 MCG tablet 100 mcg PO SUMOTUWETHFR amlodipine 10 MG tablet 10 mg PO DAILY metformin 500 MG tablet 500 mg PO DAILY Gemtesa 75 mg Tablet 75 mg PO DAILY Prolia 60 mg/mL syringe 60 mg subcut .[id number] cyanocobalamin (vitamin B-12) [Vitamin B-12] 1,000 mcg tablet 1,000 mcg PO DAILY prednisone 10 mg tablets,dose pack See Rx Instructions .ROUTE .COMPLEX Rx Instructions: orally per package directions zolpidem [Ambien] 5 mg tablet 5 mg PO QHS PRN (Reason: sleep) Primary Care Provider: Gretel Mane Referrals: Gretel Mane, [employer] [Primary Care Provider] - 3-5 Days Print Language: Yi Disposition Disposition: Home, Self Care
[2024-06-23 04:44] VITALS: BP 140/74; PULSE 93; RESP 16; TEMP 37.3; O2SAT 94
== END 2024-06-23 04:49 | disposition home or self-care (01) ==
PROVIDERS: Emergency Provider Surgery; PCP Nurse Practitioner Family; Visit Provider Surgery
DX: B34.9 Viral infection, unspecified (principal); E11.9 Type 2 diabetes mellitus without complications; M25.561 Pain in right knee; G89.29 Other chronic pain; I10 Essential (primary) hypertension; Z79.84 Long term (current) use of oral hypoglycemic drugs; Z79.899 Other long term (current) drug therapy
CPT/HCPCS: 99282

== ENCOUNTER → 2024-07-02 | Outpatient (CLI) | payer MEDICARE, OTHER, SELFPAY ==
--- NOTE | 2024-07-02 15:55 | BD_ITS ---
STUDY: DUAL ENERGY X-RAY ABSORPTIOMETRY / DXA REASON FOR EXAM: Female, 74 years old. 627.8Menopausal postmenopausalBONE DENSITY REASON FOR EXAM TECHNIQUE: Bone Mineral Density (BMD) measurements of lumbar spine and bilateral hips were obtained. COMPARISON: Comparison is made with prior study June 28, 2022. FINDINGS: Lumbar Spine (L1-L4): g/cm2 (0.931) / T-score (-1.1) / Z-score (1.2) Findings are suggestive of osteopenia with a low fracture risk. Left Femur Total: g/cm2 (0.723) / T-score (-1.8) / Z-score (-0.2) Left Femoral Neck: g/cm2 (0.6-1) / T-score (-2.1) / Z-score (-0.1) Right Femur Total: g/cm2 (0.755) / T-score (-1.5) / Z-score (0.1) Right Femoral Neck: g/cm2 (0.708) / T-score (-1.3) / Z-score (0.7) The T-Scores on the most recent prior examination were: Lumbar Spine (L1-L4): There has been worsening of bone density since the previous examination. Left Femur Total: which represents an improvement of 4.3%. Right Femur Total: which represents a worsening of 0.4%. BD/Dexa Bone Density Study IMPRESSION: The patient is considered osteopenic as outlined below according to World Oneil Organization (WHO) criteria with a moderate fracture risk. There has been worsening of bone density since the previous examination. Reference Information: The T-score is the number of standard deviations above or below the standard which is normal for young adults at their peak bone mineral density. The World Health Organization (WHO) interprets the T-scores as follows: Above -1 Normal bone density Between -1 and -2.5 Osteopenia Equal to / or below -2.5 Osteoporosis As a practical clinical guideline, osteopenia may be graded as follows: Mild -1 through -1.5 Moderate -1.6 through -2.0 Severe -2.1 through -2.4 The Z-score is the number of standard deviations above or below age-matched controls. A Z-score of less than -1.5 would be considered abnormal. References: 1. NIH Osteoporosis and Related Bone Diseases www osteo.org 2. International Society for Clinical Densitometry www iscd.org 3. National Osteoporosis Foundation www nof.org Electronically Signed: Jose Billy MD at 9:37 EDT ,
== END | disposition home or self-care (01) ==
LOC: OPBD 15:44
PROVIDERS: PCP Nurse Practitioner Family; Referring Provider Nurse Practitioner Family; Visit Provider Nurse Practitioner Family
DX: M81.0 Age-related osteoporosis without current pathological fracture (principal); Z78.0 Asymptomatic menopausal state
CPT/HCPCS: 77080

== ENCOUNTER 2024-07-07 08:52 | Day surgery (SDC) | payer MEDICARE, OTHER, SELFPAY ==
--- NOTE | 2024-06-16 11:06 | EKG12_ITS ---
Test Reason : PREOP Blood Pressure : / mmHG Vent. Rate : 072 BPM Atrial Rate : 072 BPM P-R Int : 162 ms QRS Dur : 078 ms QT Int : 404 ms P-R-T Axes : 064 -38 030 degrees QTc Int : 442 ms Normal sinus rhythm Left axis deviation Abnormal ECG When compared with ECG of 13-MAY-2023 15:20, No significant change was found Confirmed by GIOVANNI LOPEZ, ALANA ([id number]), assistant editor KATERYNA HUTCHINS ([id number]) on 06/17/2024 6:06:37 AM Referred By: Aaliyah Whitehead Confirmed By:ALANA DAVILA MD
[2024-06-16 11:54] LABS: Hematocrit 47.6 % (37-47); Hemoglobin 15.4 g/dL (12.0-15.0); Mean Corp Hgb Conc 32.4 g/dL (32-36); Mean Corpuscular Hgb 30.5 pg (27.0-32.0); Mean Corpuscular Volume 94.3 fL (81-99); Mean Platelet Vol. 10.5 fl (6.2-12.0); Platelet Count 272 K/mm3 (150-450); RBC Distribution Width CV 13.2 % (11.6-14.6); RBC Distribution Width SD 45.7 fl (35.1-43.9); Red Blood Count 5.05 M/mm3 (4.2-5.4)
[2024-06-16 13:20] LABS: ALB/GLOB Ratio 1.3 RATIO (0.9-2.4); AST(SGOT) 12 U/L (15-37); Alanine Aminotransfer ALT/SGPT 23 U/L (13-56); Albumin, Serum 3.7 g/dL (3.2-5.0); Alkaline Phosphatase 61 U/L (45-117); Anion Gap 7 (5-15); BUN 19 mg/dL (7-18); BUN/Creat Ratio 25.2 RATIO (10-20); Calcium,Total 9.1 mg/dL (8.5-10.1); Chloride 104 mmol/L (98-107); Creatinine, Serum 0.75 mg/dL (0.55-1.02); EST Glomerular Filtration Rate 80 mL/min (>60); Est Glom Filt Rate - Afr Amer 97 mL/min (>60); Globulin 2.9 g/dL (2.2-4.2); Glucose 137 mg/dL (74-106); Potassium 3.4 mmol/L (3.5-5.1); Protein, Total 6.6 g/dL (6.4-8.2); Sodium Level 140 mmol/L (136-145)
[2024-07-07] VITALS (9 sets, daily range): BP systolic 129–146; BP diastolic 66–84; PULSE 77–90; RESP 16–18; TEMP 36.4–37.1; O2SAT 95–98; BMI 33.3
--- NOTE | 2024-07-07 06:46 | HP.PCM_ITS ---
History and Physical Intake Vital Signs 05/19/2411:00 06/17/2411:11 06/17/2411:12 Height 4 ft 11 in 4 ft 11 in 4 ft 11 in Weight: 165 lb BMI 33.3 BP 147/77 H 147/71 H Intake Visit Reasons: D&C possible Symphion It Support Consultant Required: No Is patient in pain?: No Allergies Penicillins Allergy (Verified 05/19/24 10:52) Unknown Medications ?Medication ?Instructions ?Recorded ?Confirmed ?Type amlodipine 10 mg tablet 10 mg PO DAILY 06/11/17 06/17/24 History levothyroxine 100 mcg tablet 100 mcg PO SUMOTUWETHFR 06/11/17 06/17/24 History metformin 500 mg tablet,extended 500 mg PO DAILY 11/16/18 06/17/24 History release 24 hr vibegron 75 mg tablet (Gemtesa) 75 mg PO DAILY 01/29/23 06/17/24 History denosumab 60 mg/mL subcutaneous 60 mg subcut .[id number] 07/30/23 06/17/24 History syringe (Prolia) cholecalciferol (vitamin D3) 50 50 mcg PO QDAY 05/19/24 06/17/24 History mcg (2,000 unit) capsule cyanocobalamin (vitamin B-12) 1,000 mcg PO DAILY 06/15/24 06/17/24 History 1,000 mcg tablet (Vitamin B-12) prednisone 10 mg tablets in a dose See Rx Instructions PO .COMPLEX 06/15/24 06/17/24 History pack zolpidem 5 mg tablet (Ambien) 5 mg PO QHS PRN sleep 06/15/24 06/17/24 History misoprostol 200 mcg tablet 200 mcg PO .complex #2 tabs 06/17/24 06/17/24 Rx (Cytotec) Is last menstrual period known: No Post menopausal: No Patient : No : No PFSH Medical History (Updated 06/15/24 @ 09:23 by Magy Garrison) Wears dentures Wears glasses MRSA infection Anxiety History of steroid therapy Thyroid disease Diabetes Arthritis Kidney stones Back pain History of IBS Heartburn History of edema History of DVT (deep vein thrombosis) Diabetes GERD (gastroesophageal reflux disease) Hypothyroid Hypertension Osteoarthritis Surgical History (Updated 06/15/24 @ 09:19 by Magy Garrison) History of cystoscopy History of total knee replacement Hx of colonoscopy Hx of tonsillectomy Status post total left knee replacement Family History Mother Lung cancer Social History household members: none Smoking Status: Never smoker alcohol intake: never substance use type: does not use caffeine: No what type of physical activity do you participate in: none seatbelt use: always do you feel safe at home: Yes additional social history: HPI D&C possible Symphion Details: LAISHA DELGADO is a 74 year old who presents for preop exam for d and c hysterooscopy for fluid in the endometrium. this was previously scheluded earlier in the year and pushed back due to the patient having a dvt. History 3 Elective abortions Hx Para 3 Spontaneous abortions Hx # Term Pregnancies Ectopic pregnancies Hx # Pregnancies Multiple births # of living children Past Pregnancies Del. Date Name GA/Weeks Outcome Route Bth Weight Infant Gen Labor Lgth Anesthesia Del Locatn Provider FOB Unknown Kya Unknown Braydon Unknown Garcia ROS Const Constitutional: Denies fatigue, weight gain or weight loss ENT ENT: Reports system reviewed and no additional complaints, except as documented Cardio Card: Denies chest pain Resp Resp: Denies cough or dyspnea GI GI: Reports as per HPI and abdominal pain; Denies constipation, nausea or vomiting : Reports urinary incontinence; Denies nipple discharge, urinary frequency, urinary hesitancy, urinary urgency, vaginal discharge, vaginal dryness, vaginal odor or vaginal pruritus Musc Musc: Denies arthralgias, back pain or muscle weakness Skin Skin/Breast: Denies alopecia, change in hair, dry skin, breast mass, breast pain, breast skin changes or nipple discharge Neuro Neuro: Reports system reviewed and no additional complaints, except as documented Psych Psych: Reports system reviewed and no additional complaints, except as doc umented Endo Endo: Denies cold intolerance, excessive sweating, heat intolerance or polydipsia Demarco/Lymph Hematologic/Lymphatic: Denies easy bleeding, Denies easy bruising and Denies lymphadenopathy Exam Const General: cooperative, healthy appearing, comfortable and no acute distress Orientation: alert HENMT Head: normal to inspection and normocephalic Ears: hearing grossly normal bilaterally and external ears normal Nose: external nose normal and nares normal Face and sinus: normal facial exam Neck Neck: normal visual inspection and no lymphadenopathy Thyroid: thyroid normal Chest Chest palpation & inspection: normal inspection of the chest Resp Effort & Inspection: normal respiratory effort Auscultation: clear to auscultation bilaterally Cardio Rate: regular rate Rhythm: regular rhythm Heart Sounds: S1 normal and S2 normal GI Inspection: normal to inspection and non-distended Palpation: soft and no hepatosplenomegaly Musc Other: gross motor intact no deficits, full bilateral strength Skin General: no rashes or lesions noted Neuro General: patient alert, patient awake, moves all extremities and no focal motor deficits Motor: muscle tone normal throughout Extrem General: normal to inspection and no pedal edema Psych Appearance: grossly normal Mental Status: mental status grossly normal Affect: normal affect Speech and Movement: speech and movement normal Coding Level of Care Code No Charge Diagnoses Fluid in endometrial cavity N85.9 MEDICAL RESEARCH ASSOCIATE exam for high-risk Medicare patient Z91.89 History of DVT (deep vein thrombosis) Z86.718 Assessment and Plan Assessment and Plan (1) Fluid in endometrial cavity: Status: Acute Comment: plan d and c hysteroscopy possible symphion (2) MEDICAL RESEARCH ASSOCIATE exam for high-risk Medicare patient: Status: Acute Comment: on immunosuppression (3) History of DVT (deep vein thrombosis): Status: Acute Comment: RECENT, 10/2023, POST KNEE SURGERY, plan lovenox day of and 1 week post op Medications: New misoprostol (Cytotec) take the night before and two hours prior to the procedure 2 tabs 1RF Plan After discussing the patient's diagnosis and treatment plan options, patient wishes to proceed with surgical management. I have discussed with the patient the risks, benefits, and alternatives of the procedure which include but are not limited to risks of anesthesia, bleeding, infection, possible damage to bowel, bladder, or surrounding vasculature which could lead to additional surgery to evaluate any complications. Patient agrees to procedure and wishes to proceed. ACOG/uptodate references given for additional information regarding procedure. UPDATE- I have seen the patient and performed any clinically relevant updates to the history and physical exam. Aaliyah Whitehead MD
[2024-07-07] MEDS: Enoxaparin 40 MG/0.4 ML Syringe SC (09:45)
--- NOTE | 2024-07-07 10:10 | PRE.ANES_ITS ---
ASA Classification* ASA Classification ASA Classification: 2 Assessment & Plan Anesthesia* Anesthesia Assessment Anesthesia Assessment: Discussed sedation and/or anesthesia options, risks, benefits, and alternatives with patient/parents/legal guardian/POA. Questions invited. The patient/parents/legal guardian/POA seems to understand and agrees to proceed with anesthesia plan. Reviewed the physical assessment, medical history, allergy history and patient home medications list prior to surgery/procedure/anesthetic and documented any changes. Performed airway and anesthesia risk assessments. Anesthesia Type Anesthesia Type: MAC (SEE WRITTEN PRE ANESTHESIA RECORD FOR FULL ASSESSMENT) Anesthesia Focused Assessment* Temperature: 98.2 F Pulse Rate: 80 Blood Pressure: 138/66 Respiratory Rate: 18 Pulse Ox: 98 Airway Assessment Mouth opens: >3 cm Mallampati Score: II Focused Labs Anesthesia Preop lab: CBC WBC 10.0 K/mm3 (4.4-11.0) 06/16/24 11:30 RBC 5.05 M/mm3 (4.2-5.4) 06/16/24 11:30 Hgb 15.4 g/dL (12.0-15.0) H 06/16/24 11:30 Hct 47.6 % (37-47) H 06/16/24 11:30 Plt Count 272 K/mm3 (150-450) 06/16/24 11:30 CHEMISTRY Potassium 3.4 mmol/L (3.5-5.1) L 06/16/24 11:30 Sodium 140 mmol/L (136-145) 06/16/24 11:30 BUN 19 mg/dL (7-18) H 06/16/24 11:30 Creatinine 0.75 mg/dL (0.55-1.02) 06/16/24 11:30 Glucose 137 mg/dL (74-106) H 06/16/24 11:30 POC Glucose 130 mg/dL (74-106) H 12/23/22 14:10 TSH 3.540 uIU/mL (0.358-3.740) 06/16/24 11:30 COAG Pre-Assessment Diagnosis/Proposed Procedure Planned Operative Procedure(s): Hysteroscopy,Dilation and Curettage, Possible Symphion Anesthesia History 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 When Was Last Pacemaker Check QUESTION #4 FULL TEXT: You/Your Family Experience fever (hyperthermia) with Anesthesia Last Oral Intake Last Oral intake: Last Oral Intake NPO since 07:00 07/07/24 09:30 Meds taken in AM with sips of Yes 07/07/24 09:30 water? Meds patient instructed to amlodipine, levothyroxine, 07/07/24 09:30 take am of surgery cytotec PONV PONV - instrumentation controls engineer: PONV - instrumentation controls engineer Female Yes 06/15/24 09:20 HX of Motion Sickness No 06/15/24 09:20 HX of N/V After Surgery No 06/15/24 09:20 Non-Smoker Yes 06/15/24 09:20 Duration of Surgery greater No 06/15/24 09:20 than 60 minutes Number of Risk Factors 2 06/15/24 09:20 PONV Score Moderate Risk 06/15/24 09:20 Height & Weight Height & Weight: Anesthesia: Height & Weight Height 4 ft 11 in 07/07/24 09:30 Weight: 74.8 kg 07/07/24 09:30 Body Mass Index (BMI) 33.3 07/07/24 09:30 Respiratory Assessment Respiratory Assessment - instrumentation controls engineer: Respiratory Tract Infection Hx - instrumentation controls engineer Hx Respiratory Tract Infection No 06/15/24 09:20 STOP Sleep Apnea STOP Sleep Apnea - instrumentation controls engineer: STOP Sleep Apnea - instrumentation controls engineer Hx Hypertension Yes: CONTROLLED ON MED 06/22/24 12:00 Hx Sleep Apnea No: hx of sleep study 06/15/24 09:20 CPAP No 06/15/24 09:20 BIPAP No 06/15/24 09:20 Do you snore loudly (louder No 06/15/24 09:20 than talking or can be heard Do you often feel tired/ No 06/15/24 09:20 fatigued/ sleepy during daytime? Has anyone observed you stop No 06/15/24 09:20 breathing during sleep? STOP Results Negative 06/15/24 09:20 QUESTION #5 FULL TEXT : Do you snore loudly (louder than talking or can be heard through closed doors)? 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 Specify any problems Hx of Preganancy in last 3 No 06/15/24 09:20 Months Nurse Filling Out Transfusion VCHRISTIN 06/15/24 09:20 & Questions: Date: 06/15/24 06/15/24 09:20 Time: 09:21 06/15/24 09:20 Patient unable to answer at this time (ie. confused, unrespo /Reproduction History /Reproductive History - instrumentation controls engineer: /Reproductive Hx- instrumentation controls engineer Hx Now No 06/15/24 09:20 Gestational Age (in weeks): EDC: Hx Hx Para Hx Section SAB No 06/17/24 11:12 PFSH Medical History FH: total knee replacement Wears dentures Wears glasses MRSA infection Anxiety History of steroid therapy Thyroid disease Diabetes Arthritis Kidney stones Back pain History of IBS Heartburn History of edema History of DVT (deep vein thrombosis) Diabetes GERD (gastroesophageal reflux disease) Hypothyroid Hypertension Osteoarthritis Home Medications ?Medication ?Instructions ?Recorded ?Last Taken ?Type amlodipine 10 mg tablet 10 mg PO DAILY 06/11/17 07/07/24 08:00 History levothyroxine 100 mcg tablet 100 mcg PO SUMOTUWETHFR 06/11/17 07/07/24 07:00 History metformin 500 mg tablet,extended 500 mg PO DAILY 11/16/18 Unknown History release 24 hr vibegron 75 mg tablet (Gemtesa) 75 mg PO DAILY 01/29/23 Unknown History denosumab 60 mg/mL subcutaneous 60 mg subcut .[id number] 07/30/23 Unknown History syringe (Prolia) cholecalciferol (vitamin D3) 50 50 mcg PO QDAY 05/19/24 Unknown History mcg (2,000 unit) capsule cyanocobalamin (vitamin B-12) 1,000 mcg PO DAILY 06/15/24 Unknown History 1,000 mcg tablet (Vitamin B-12) prednisone 10 mg tablets in a dose See Rx Instructions PO .COMPLEX 06/15/24 Unknown History pack zolpidem 5 mg tablet (Ambien) 5 mg PO QHS PRN sleep 06/15/24 Unknown History misoprostol 200 mcg tablet 200 mcg PO .complex #2 tabs 06/17/24 07/07/24 08:30 Rx (Cytotec) Allergy/AdvReac Type Severity Reaction Status Date / Time Penicillins Allergy Unknown Verified 07/07/24 09:48 Family History Mother Lung cancer Surgical History History of cystoscopy History of total knee replacement Hx of colonoscopy Hx of tonsillectomy Status post total left knee replacement Social History household members: none Smoking Status: Never smoker alcohol intake: never substance use type: does not use caffeine: No what type of physical activity do you participate in: none seatbelt use: always do you feel safe at home: Yes additional social history: Review of Systems (Anesthesia) ROS Narrative System reviewed and no additional complaints, except as documented.
[2024-07-07 10:17] LABS: Bedside Glucose 108 mg/dL (74-106)
--- NOTE | 2024-07-07 11:05 | EMB_PTH ---
PATIENT: LAISHA DELGADO LOC: [facility] [place] U#:[id number] AGE/SX: 74/F ROOM: RE07/07/[address]: Dr. Aaliyah Whitehead MD : 1950 BED: DIS: 07/07/2024 SPEC #: [id number] RECD: 07/07/24 12:58 STATUS: VALENTINA FISHER #: [id number] ANA: 07/07/24 11:[address]: Aaliyah Whitehead DEPT: SURGICAL PATHOLOGY RECD BY: Paola Blackwood ENTERED: 07/07/24 13:21 SP TYPE: ENDOM BX/C OT DR: Gretel Mane, CHEMICAL LABORATORY ASSISTANT-C Tissues: Endometrium, NOS Procedures: Surgery Specimen Level IV HEADER OPERATION: Hysteroscopy, D&C PRE-OP DIAGNOSIS: Fluid in endometrial cavity TISSUE SUBMITTED: Endometrial curettings MICROSCOPIC DIAGNOSIS Endometrial curettings: Strips of benign endometrial epithelium and superficial fragments of benign endometrial tissue. Fragments of benign ectocervical and endocervical mucosa. See comment. 07/08/2024 COMMENT Clinical correlation and appropriate follow up are necessary. MICROSCOPIC DESCRIPTION Slides are reviewed. GROSS DESCRIPTION Received in fixative is one container labeled with the patient's name and designated Endometrial curettings. The specimen consists of multiple irregular fragments of hemorrhagic soft tissue mixed with mucoid tissue that in aggregate measure 2.5 x 1.5 x 0.1 cm. The specimen is totally submitted in one cassette. 07/07/2024 TC:4 CPT:09761
[2024-07-07] MEDS: Lidocaine 1% (20 ml mdv) 20 ML Vial (11:44)
--- NOTE | 2024-07-07 11:50 | PCM.OPRPT ---
Problems Associated Problem List Diagnoses (1) Fluid in endometrial cavity: Operative Report (Standard) Operative Information Surgery/Procedure Performed: d and c hysteroscopy Surgeon: Aaliyah Whitehead Date of Procedure: 07/07/24 Procedure Start Time: 11:44 Procedure Stop Time: 11:49 Pre-Operative Diagnosis: see problems Post-Operative Diagnosis: same Select all DRAINS/GRAFTS/IMPLANTS that apply: None Type of Anesthesia: IV Sedation Estimated Blood Loss: 10 Specimen collected: Yes Description of specimen(s) removed: endometrial curretings Description of surgery: Patient was prepped and draped in a normal sterile fashion under MAC anesthesia. A weighted speculum was placed in the vagina and the anterior lip of the cervix was grasped with a single-tooth tenaculum. A paracervical block was placed with 1% lidocaine. Cervix was progressively dilated to allow passage of a 5 mm hysteroscope. The lining was fully visualized and noted to have thin atrophic lining . Uterine sounded to 6 cm. Curettage was performed and tissue removed , sent to pathology. All instruments were removed from the vagina and excellent hemostasis was noted. Patient was awoken and taken to recovery in stable condition. Surgical Findings: thin lining Tape Transferrer psychologist private practice: No Complications Complications: No Multi Select Codes Urinary/Genital Urinary/Genital CPT Codes: 44497 Hysteroscopy,EMC, Polypectomy
--- NOTE | 2024-07-07 11:57 | DCINST_ITS ---
Discharge Instructions Procedure D&C Diet Discharge Diet: No restrictions Activity Discharge Activity: Return to Normal Activity, May Shower and May Take a Tub Bath (after 1 week) May resume sexual activity in: 1-2 weeks Weight Bearing Status: Weight bearing as tolerated Lifting Restrictions: none Dressing / Incision Call your doctor if you observe: Fever of 101 or Higher, Using more than 1 pad per hour, Shortness of breath and Uncontrolled pain Follow Up Care Please Follow Up With: Aaliyah Whitehead MD When: Call [phone] to schedule appointment. Test Results: Test results from this visit will be discussed in further detail at your follow- up appointment, if applicable. Discharge Plan Admission Attending Provider: Aaliyah Whitehead Primary Care Provider: Gretel Mane Instructions Print Language: Wolof Discharge Orders/Prescriptions Prescriptions: No Action cholecalciferol (vitamin D3) 50 mcg (2,000 unit) capsule 50 mcg PO QDAY misoprostol [Cytotec] 200 mcg tablet 200 mcg PO .complex Qty: 2 1RF Rx Instructions: take the night before and two hours prior to the procedure levothyroxine 100 MCG tablet 100 mcg PO SUMOTUWETHFR amlodipine 10 MG tablet 10 mg PO DAILY metformin 500 MG tablet 500 mg PO DAILY Gemtesa 75 mg Tablet 75 mg PO DAILY Prolia 60 mg/mL syringe 60 mg subcut .[id number] cyanocobalamin (vitamin B-12) [Vitamin B-12] 1,000 mcg tablet 1,000 mcg PO DAILY prednisone 10 mg tablets,dose pack See Rx Instructions .ROUTE .COMPLEX Rx Instructions: orally per package directions zolpidem [Ambien] 5 mg tablet 5 mg PO QHS PRN (Reason: sleep) Referrals / Follow Up: Gretel Mane, BARREL LATHE OPERATOR OUTSIDE-C [Primary Care Provider] - Disposition Disposition (needs filled in before D/C Order can be placed): Home, Self Care
--- NOTE | 2024-07-07 12:02 | PCM.POST.ANE ---
Anesthesia: Postop Eval I Current Vital Signs Temperature: 98.7 F Pulse Rate: 90 Blood Pressure: 143/72 Respiratory Rate: 16 Pulse Ox: 98 Oxygen Delivery Method: Room Air Assessment Airway patent: Yes Spontaneous unlabored respirations: Yes Mental status: Awake and Calm nausea: No Vomiting: No Anesthesia Complication: No Fluid Hydration Crystalloid volume administer (ml): 10 Total IV fluid infused: 10 Progress Note Anesthesia document: Postop Eval 1 completed: Yes
--- NOTE | 2024-07-07 12:12 | POSTOPAN2_ITS ---
Anesthesia Postop Eval I Sum Postop Eval Completion status Anesthesia document: Postop Eval 1 completed: Yes Anesthesia Postop Eval I Summary Anesthesia Postop Eval I Summary: Anesthesia Postop Eval I: Assessment Summary Airway patent Yes 07/07/24 12:02 CITRUS FRUIT COLORER.[email or web address] Spontaneous unlabored Yes 07/07/24 12:02 CITRUS FRUIT COLORER.ABDELRAHMAN respirations Mental status Awake,Calm 07/07/24 12:02 CITRUS FRUIT COLORER.ABDELRAHMAN nausea No 07/07/24 12:02 CITRUS FRUIT COLORER.ABDELRAHMAN Vomiting No 07/07/24 12:02 CITRUS FRUIT COLORER.ABDELRAHMAN Anesthesia Postop Eval I: Fluid Summary Crystalloid volume administer 10 07/07/24 12:02 CITRUS FRUIT COLORER.JEFFREYOBY (ml) Colloids volume administered ( ml) Blood Product volume administered (ml) Total IV fluid infused 10 07/07/24 12:02 CITRUS FRUIT COLORER.ABDELRAHMAN Anesthesia Postop Eval I: Summary Notes Anesthesia Complication No 07/07/24 12:02 CITRUS FRUIT COLORER.ABDELRAHMAN Anesthesia Complication Comment: Post-operative progress note Anesthesia: Postop Eval II Evaluation Mental status: Awake Pain Level: 0 nausea: No Vomiting: No
--- NOTE | 2024-07-07 12:12 | PCM.POSTANE2 ---
Anesthesia Postop Eval I Sum Postop Eval Completion status Anesthesia document: Postop Eval 1 completed: Yes Anesthesia Postop Eval I Summary Anesthesia Postop Eval I Summary: Anesthesia Postop Eval I: Assessment Summary Airway patent Yes 07/07/24 12:02 HOSE MENDER.[email or web address] Spontaneous unlabored Yes 07/07/24 12:02 HOSE MENDER.ABDELRAHMAN respirations Mental status Awake,Calm 07/07/24 12:02 HOSE MENDER.ABDELRAHMAN nausea No 07/07/24 12:02 HOSE MENDER.ABDELRAHMAN Vomiting No 07/07/24 12:02 HOSE MENDER.ABDELRAHMAN Anesthesia Postop Eval I: Fluid Summary Crystalloid volume administer 10 07/07/24 12:02 HOSE MENDER.JEFFREYOBY (ml) Colloids volume administered ( ml) Blood Product volume administered (ml) Total IV fluid infused 10 07/07/24 12:02 HOSE MENDER.ABDELRAHMAN Anesthesia Postop Eval I: Summary Notes Anesthesia Complication No 07/07/24 12:02 HOSE MENDER.ABDELRAHMAN Anesthesia Complication Comment: Post-operative progress note Anesthesia: Postop Eval II Evaluation Mental status: Awake Pain Level: 0 nausea: No Vomiting: No
[2024-07-07] MEDS: HYDROcodone Bitartrate/Apap 5/325 Tablet PO (13:22)
== END 2024-07-07 13:30 | disposition home or self-care (01) ==
LOC: SDC 08:53 → AC 08:55
PROVIDERS: PCP Nurse Practitioner Family; Referring Provider Obstetrics & Gynecology; Visit Provider Obstetrics & Gynecology
PROC: 0UB98ZZ Excision of Uterus, Via Natural or Artificial Opening Endoscopic (ICD-10-PCS; CPT 58558; principal; 2024-07-07 10:50)
DX: N85.01 Benign endometrial hyperplasia (principal); E11.9 Type 2 diabetes mellitus without complications; I10 Essential (primary) hypertension; E03.9 Hypothyroidism, unspecified; Z79.84 Long term (current) use of oral hypoglycemic drugs; Z79.890 Hormone replacement therapy; Z79.899 Other long term (current) drug therapy; Z86.718 Personal history of other venous thrombosis and embolism
CPT/HCPCS: 58558; 00952; 36415; 80053; 82962; 84443; 85027; 86850; 86900; 86901; 88305; 93005; A4216; J2405

== ENCOUNTER 2024-07-31 13:19 | Outpatient (CLI) | payer MEDICARE, OTHER, SELFPAY ==
[2024-07-31 13:25] VITALS: BP 133/76; PULSE 76; RESP 18; TEMP 35.6
[2024-07-31] MEDS: DENOSUMAB 60 MG/ML SC (13:31)
== END 2024-07-31 23:59 | disposition home or self-care (01) ==
LOC: MEDOUTP 13:19
PROVIDERS: PCP Nurse Practitioner Family; Visit Provider Internal Medicine
DX: M81.0 Age-related osteoporosis without current pathological fracture (principal)
CPT/HCPCS: 96372; J0897

== ENCOUNTER → 2024-09-07 | Outpatient (CLI) | payer MEDICARE, OTHER, SELFPAY ==
[2024-09-10 21:07] LABS: Chlamydia By Nucleic Acid AMP Negative (Negative); Gonococcus By Nucleic Acid AMP Negative (Negative)
== END | disposition home or self-care (01) ==
LOC: LABSPEC 14:59
PROVIDERS: PCP Nurse Practitioner Family; Referring Provider Nurse Practitioner Women's Health; Visit Provider Nurse Practitioner Women's Health
DX: N89.8 Other specified noninflammatory disorders of vagina (principal); Z11.3 Encounter for screening for infections with a predominantly sexual mode of transmission
CPT/HCPCS: 87070; 87205; 87491; 87591

== ENCOUNTER 2024-09-29 13:00 | Outpatient (RCR) | payer MEDICARE, OTHER, SELFPAY ==
--- NOTE | 2024-06-22 14:23 | HP.PTEVAL ---
Patient's Visit Information Visit Information Visit Information: LAISHA DELGADO is a 74 year old F referred to Physical Therapy by GARY BEAN with a diagnosis of RIGHT HAMSTRING INJURY ,RIGHT TKA. Date of Evaluation: 06/22/24 Physical Therapist: Diogo Amaya, PT, Cert MDT, OCS Visit Plan Frequency: 2x /Week Duration: 4 Weeks Plan: PATIENT H/O TKR OCT 2023 PT INTERVENTIONS MODALITIES ( US 3.3 W/CM2 50%) ,MANUAL THERAPY STM/STICK/HAWK HAMSTRINGS DISTAL /IT BAND /QUAD ,STRETCHING HAMSTRINGS ,GRADED ECCENTRICS HAMSTRINGS Subjective Subjective: This 74 y/o female presents to physical therapy with right hamstring pain with h/o s/p TKR Oct 28 . Patient pulled hamstrings in PT several months ago 2 weeks ago pulled again during water ex's. Patient had x-rays - 2 months ago when moving in bed when pillow between knee. Aggravating factors sitting and pulling backwards. Difficulty with descending steps. Leg gets weak with walking and standing. Alleviating factors rest and prednisone pack which was prescribed by DR. Patient seen family DR recommended PT. Denies paresthesia/tingling-. Pain affects sleeping. Patient condition affects QOL and function /standing walking. Patient goals to decrease symptoms. SOCIAL: VOCATION: retired Pain Right Knee: Pain Intensity (Out of 10): 4 Pain Intensity Range: 10 Objective Objective: POSTURE: mild forward posture knees slightly flexed NEURO: denies paresthesia/tingling PALAPTION: tender hamstrings distal lateral hamstrings ,IT band GAIT: slow marita ,decrease stance time RLE EDEMA: mild effusion AROM: 10-100 degrees MMT: quads/hams 4/5 ,hip flexion 4-/5 ,hip abduction 4-/5 ,ankle 4/5 Balance/Special Test Scores Lower Extremity Functional Score: 28 Goals Goal 1:: Patient to be I with HEP Goal Time Frame: 4-6 Weeks Goal 2:: Patient to normalize gait Goal Time Frame: 4-6 Weeks Goal 3:: Patient to improve AROM by 5 degrees to improve stairs and gait Goal 4:: Patient to improve LFES score by 5 points to improve function. Goal Time Frame: 4-6 Weeks Goal 5:: Patient to to demonstrate 50% improvement with gait band less pain Goal Time Frame: 4-6 Weeks Rehabilitation Potential Physical Therapy Diagnosis: Patient has injury to hamstring with h/o right TKA Oct 2017 with patient has pain and tenderness distal hamstrings and T TAND,mild quad with decrease ROM and impaired gait thus benefit from skilled PT Rehabilitation Potential: Good Anticipated Interventions Patient/Client Instruction: Educate patient on: Condition and Plan of Care For the Purpose of:: To decrease pain, To increase ROM, To improve muscle performance and motor function, To improve ability to perform ADL's, To increase tolerance to activity/condition/position, To improve ability of physical actions for home/community/work/leisure, To improve health of tissue, To decrease soft tissue restriction, To increase flexibility/ROM and To reduce risk of recurrence Therapeutic Exercise to Include: Strength training, Flexibilty training, Passive ROM and Active ROM For the Purpose of:: To decrease pain, To decrease swelling/inflammation, To increase ROM, To improve nutrient delivery to tissue, To increase oxygenation perfusion, To increase tolerance to activity/condition/position, To improve ability of physical actions for home/community/work/leisure, To improve health of tissue, To decrease soft tissue restriction, To improve endurance, To reduce risk of recurrence and To improve tolerance to ADL's Manual Therapy Techniques to Include: Manual lymph drainage and Soft tissue mobilization Comment: HAWK TOOL For the Purpose of:: To decrease pain, To increase oxygenation perfusion, To improve health of tissue and To decrease soft tissue restriction TENS: Yes IF ES: Yes Cryotherapy (ice pack, ice massage): Yes Ultrasound (thermal/non thermal): Yes For the Purpose of:: To decrease pain, To increase ROM, To improve nutrient delivery to tissue, To increase oxygenation perfusion, To improve health of tissue and To decrease soft tissue restriction Text: Thank you for the opportunity to evaluate your patient. For Medicare and Medicare HMO plans, please review the plan of care and approve it. It will need to be FAXED BACK to us at [phone] for Medicare purposes. For Medicare only, by signing this I certify the plan of care. Please let me know if there are questions or concerns regarding this plan of care. Physician Signature: Date:
--- NOTE | 2024-07-31 12:23 | HP.PTREVAL ---
Re-Evaluation Intro: GARY BEAN, It has been my pleasure to treat LAISHA DELGADO over the last 10 visits for RIGHT HAMSTRING INJURY ,RIGHT TKA. Please see the progress note below for an update on the physical therapy plan of care! Subjective Subjective: Seen DR Garsia.discussed about cyst nothing they can or even drain DR said to continue C/O stiffness Dr prescribed new medication baclofen Plan to have US to r/o cyst Also plan external stimulation 60 days Objective Objective/Function: POSTURE: mild forward posture knees slightly flexed NEURO: denies paresthesia/tingling PALAPTION: tender hamstrings distal lateral hamstrings ,IT band GAIT: slow marita ,decrease slight stance time RLE EDEMA: mild effusion AROM: 10-105 degrees MMT: quads/hams 4/5 ,hip flexion 4-/5 ,hip abduction 4-/5 ,ankle 4/5 Plan Plan Plan: PATIENT H/O TKR OCT 2023 PT INTERVENTIONS MODALITIES ( US 3.3 W/CM2 50%) ,MANUAL THERAPY STM/STICK/HAWK HAMSTRINGS DISTAL /IT BAND /QUAD ,STRETCHING HAMSTRINGS ,GRADED ECCENTRICS HAMSTRINGS Balance/Gait/Functional tests Balance/Special Test Scores Lower Extremity Functional Score: 28 Goals Goals Goal 1:: Patient to be I with HEP Goal Time Frame: 4-6 Weeks Goal Progress: Progressing Goal 2:: Patient to normalize gait Goal Time Frame: 4-6 Weeks Goal Progress: Progressing Goal 3:: Patient to improve AROM by 5 degrees to improve stairs and gait Goal Progress: Progressing Goal 4:: Patient to improve LFES score by 5 points to improve function. Goal Time Frame: 4-6 Weeks Goal Progress: Progressing Goal 5:: Patient to to demonstrate 50% improvement with gait band less pain Goal Time Frame: 4-6 Weeks Goal Progress: Progressing Anticipated Interventions Anticipated Interventions Patient/Client Instruction: Educate patient on: Condition and Plan of Care For the Purpose of:: To decrease pain, To increase ROM, To improve muscle performance and motor function, To improve ability to perform ADL's, To increase tolerance to activity/condition/position, To improve ability of physical actions for home/community/work/leisure, To improve health of tissue, To decrease soft tissue restriction, To increase flexibility/ROM and To reduce risk of recurrence Therapeutic Exercise to Include: Strength training, Flexibilty training, Passive ROM and Active ROM For the Purpose of:: To decrease pain, To decrease swelling/inflammation, To increase ROM, To improve nutrient delivery to tissue, To increase oxygenation perfusion, To increase tolerance to activity/condition/position, To improve ability of physical actions for home/community/work/leisure, To improve health of tissue, To decrease soft tissue restriction, To improve endurance, To reduce risk of recurrence and To improve tolerance to ADL's Manual Therapy Techniques to Include: Manual lymph drainage and Soft tissue mobilization Comment: ESSENCEK TOOL For the Purpose of:: To decrease pain, To increase oxygenation perfusion, To improve health of tissue and To decrease soft tissue restriction TENS: Yes IF ES: Yes Cryotherapy (ice pack, ice massage): Yes Ultrasound (thermal/non thermal): Yes For the Purpose of:: To decrease pain, To increase ROM, To improve nutrient delivery to tissue, To increase oxygenation perfusion, To improve health of tissue and To decrease soft tissue restriction Re-Evaluation Ending Re-evaluation ending: Please do not hesitate to contact me at [phone] by phone or if you have questions or concerns regarding this new plan of care! Sincerely, Diogo Amaya, PT, Cert MDT, OCS
--- NOTE | 2024-08-31 13:17 | HP.PTREVAL ---
Re-Evaluation Intro: GARY BEAN, It has been my pleasure to treat LAISHA DELGADO over the last 17 visits for RIGHT HAMSTRING INJURY ,RIGHT TKA. Please see the progress note below for an update on the physical therapy plan of care! Subjective Subjective: Patient seen Dr Ruiz said no cyst and no infection and cortisone. wanted to cont with PT and work with srengthning Hamstring is better Objective Objective/Function: * Patient to benefit from skilled PT to decrease pain and improve strength thus benefit from skilled PT POSTURE: mild forward posture knees slightly flexed NEURO: denies paresthesia/tingling PALAPTION: tender hamstrings distal lateral hamstrings ,IT band GAIT: slow marita ,decrease slight stance time RLE EDEMA: mild effusion AROM: 8-110 degrees MMT: quads/hams 4/5 ,hip flexion 4-/5 ,hip abduction 4-/5 ,ankle 4/5 Plan Plan Plan: PATIENT H/O TKR OCT 2023 FOCUS ON STRENGTHENING PT INTERVENTIONS FOCUSING ON STRENGTHENING QUADS/HAMS /HIP MANUAL THERAPY STM/STICK/HAWK HAMSTRINGS DISTAL /IT BAND /QUAD ,STRETCHING HAMSTRINGS ,GRADED ECCENTRICS HAMSTRINGS [ End ] Balance/Gait/Functional tests Balance/Special Test Scores Lower Extremity Functional Score: 28 Goals Goals Goal 1:: Patient to be I with HEP Goal Time Frame: 4-6 Weeks Goal Progress: Progressing Goal 2:: Patient to normalize gait Goal Time Frame: 4-6 Weeks Goal Progress: Progressing Goal 3:: Patient to improve AROM by 5 degrees to improve stairs and gait Goal Progress: Progressing Goal 4:: Patient to improve LFES score by 5 points to improve function. Goal Time Frame: 4-6 Weeks Goal Progress: Progressing Goal 5:: Patient to to demonstrate 50% improvement with gait band less pain Goal Time Frame: 4-6 Weeks Goal Progress: Progressing Anticipated Interventions Anticipated Interventions Patient/Client Instruction: Educate patient on: Condition and Plan of Care For the Purpose of:: To decrease pain, To increase ROM, To improve muscle performance and motor function, To improve ability to perform ADL's, To increase tolerance to activity/condition/position, To improve ability of physical actions for home/community/work/leisure, To improve health of tissue, To decrease soft tissue restriction, To increase flexibility/ROM and To reduce risk of recurrence Therapeutic Exercise to Include: Strength training, Flexibilty training, Passive ROM and Active ROM For the Purpose of:: To decrease pain, To decrease swelling/inflammation, To increase ROM, To improve nutrient delivery to tissue, To increase oxygenation perfusion, To increase tolerance to activity/condition/position, To improve ability of physical actions for home/community/work/leisure, To improve health of tissue, To decrease soft tissue restriction, To improve endurance, To reduce risk of recurrence and To improve tolerance to ADL's Manual Therapy Techniques to Include: Manual lymph drainage and Soft tissue mobilization Comment: BENITO TOOL For the Purpose of:: To decrease pain, To increase oxygenation perfusion, To improve health of tissue and To decrease soft tissue restriction TENS: Yes IF ES: Yes Cryotherapy (ice pack, ice massage): Yes Ultrasound (thermal/non thermal): Yes For the Purpose of:: To decrease pain, To increase ROM, To improve nutrient delivery to tissue, To increase oxygenation perfusion, To improve health of tissue and To decrease soft tissue restriction Re-Evaluation Ending Re-evaluation ending: Please do not hesitate to contact me at [phone] by phone or if you have questions or concerns regarding this new plan of care! Sincerely, Diogo Amaya, PT, Cert MDT, OCS
--- NOTE | 2024-09-29 13:59 | HP.PTDCSUM ---
Discharge Summary D/C summary: It has been my pleasure to treat LAISHA DELGADO referred by GARY BEAN, with the diagnosis of RIGHT HAMSTRING INJURY ,RIGHT TKA for a total of 25 visit(s). Discharge Date: 09/29/24 Please see the following information for a summary of their discharge status. Subjective Subjective: Feeling better .. Im walking better. Feel stiffness Pain Right Knee: Pain Intensity (Out of 10): 3 Overall Improvement % Improvement: 50 Objective Objective/Function: POSTURE: mild forward posture knees slightly flexed NEURO: denies paresthesia/tingling PALAPTION: mild tender hamstrings distal lateral hamstrings ,IT band GAIT: reciprocal pattern ,decrease slight stance time RLE EDEMA: absent AROM: 5-115 degrees MMT: quads/hams 4/5 ,hip flexion 4-/5 ,hip abduction 4-/5 ,ankle 4 Goals Goal 1:: Patient to be I with HEP Goal Progress: Goal Met Goal 2:: Patient to normalize gait Goal Progress: Goal Met Goal 3:: Patient to improve AROM by 5 degrees to improve stairs and gait Goal Progress: Goal Met Goal 4:: Patient to improve LFES score by 5 points to improve function. Goal Progress: Goal Met Goal 5:: Patient to to demonstrate 50% improvement with gait band less pain Goal Progress: Goal Met Plan Plan: D/C D/C Information Discharge Comments: hep and gym program d/c sentence: If there are questions or concerns regarding this patient's physical therapy, please feel free to call me at [phone]. Thank you for the referral of this patient. Sincerely, Diogo Amaya, PT, Cert MDT, OCS Balance/Gait/Functional tests Balance/Special Test Scores Lower Extremity Functional Score: 56 Improvement % Improvement: 50
== END 2024-09-29 15:12 | disposition home or self-care (01) ==
LOC: PT 13:00
PROVIDERS: PCP Nurse Practitioner Family
DX: S76.301D Unspecified injury of muscle, fascia and tendon of the posterior muscle group at thigh level, right thigh, subsequent encounter (principal); Z96.651 Presence of right artificial knee joint
CPT/HCPCS: 97035; 97110; 97140; 97162; 97530

== ENCOUNTER 2024-12-15 14:47 | Outpatient (CLI) | payer MEDICARE, OTHER, SELFPAY ==
[2024-12-15 15:11] LABS: Basophil# 0.03 X10^3/uL; Basophil% 0.3 % (0-1); Eosinophils% 3.1 % (0-5); Hematocrit 46.2 % (37-47); Hemoglobin 15.3 g/dL (12.0-15.0); Lymphocyte % 23.8 % (19-41); Mean Corp Hgb Conc 33.1 g/dL (32-36); Mean Corpuscular Hgb 31.7 pg (27.0-32.0); Mean Corpuscular Volume 95.9 fL (81-99); Mean Platelet Vol. 11.5 fl (6.2-12.0); Monocyte# 1.04 X10^3/uL; Monocyte% 10.7 % (0-10); NRBC Flagged by Analyzer 0 % (0-5); Neutrophil # 5.97 X10^3/uL (2.7-7.7); Neutrophil % 61.7 % (47-70); Platelet Count 263 K/mm3 (150-450); RBC Distribution Width CV 13.3 % (11.6-14.6); RBC Distribution Width SD 47.6 fl (35.1-43.9); Red Blood Count 4.82 M/mm3 (4.2-5.4); White Blood Count 9.7 K/mm3 (4.4-11.0)
[2024-12-15 15:22] LABS: D-Dimer Quantitative (DVT/PE) 0.43 FEU/ug/m (0.27-0.49)
[2024-12-15 16:03] LABS: ALB/GLOB Ratio 1.9 RATIO (0.9-2.4); AST(SGOT) 27 U/L (<=31); Alanine Aminotransfer ALT/SGPT 22 U/L (<=34); Albumin, Serum 4.5 g/dL (3.4-4.8); Alkaline Phosphatase 63 U/L (35-104); Anion Gap 11 (5-15); BUN 20 mg/dL (4-19); BUN/Creat Ratio 26.7 RATIO (10-20); Calcium,Total 9.7 mg/dL (7.6-11.0); Carbon Dioxide 27.2 mmol/L (21.0-32.0); Chloride 104 mmol/L (98-108); Creatinine, Serum 0.76 mg/dL (0.70-1.20); EST Glomerular Filtration Rate 83 (>60); Globulin 2.4 g/dL (2.2-4.2); Glucose 97 mg/dL (70-99); Potassium 3.7 mmol/L (3.3-5.1); Protein, Total 6.8 g/dL (5.9-8.4); Sodium Level 142 mmol/L (133-145); Total Bilirubin 0.61 mg/dL (0.00-1.30); Troponin T High Sensitivity 10 ng/L (<=14)
[2024-12-17 05:07] LABS: CRP, High Sensitivity 2.17 mg/L (0.00-3.00)
== END 2024-12-15 23:59 | disposition home or self-care (01) ==
LOC: LABSPEC 14:52
PROVIDERS: PCP Nurse Practitioner Family; Referring Provider Nurse Practitioner Family; Visit Provider Nurse Practitioner Family
DX: R07.9 Chest pain, unspecified (principal)
CPT/HCPCS: 80053; 84443; 84484; 85025; 85379; 86141

== ENCOUNTER 2025-01-29 10:29 | Outpatient (CLI) | payer MEDICARE, OTHER, SELFPAY ==
[2025-01-29 10:40] VITALS: BP 144/79; PULSE 67; RESP 16; TEMP 35.5; O2SAT 97; BMI 34.3
[2025-01-29] MEDS: DENOSUMAB 60 MG/ML SC (10:45)
== END 2025-01-29 23:59 | disposition home or self-care (01) ==
LOC: MEDOUTP 10:30
PROVIDERS: PCP Nurse Practitioner Family; Referring Provider Internal Medicine; Visit Provider Internal Medicine
DX: M81.0 Age-related osteoporosis without current pathological fracture (principal)
CPT/HCPCS: 96372; J0897

== ENCOUNTER → 2025-03-17 | Outpatient (CLI) | payer MEDICARE, OTHER, SELFPAY ==
--- NOTE | 2025-03-17 10:10 | BI_ITS ---
EXAM: SCRN MAMM (CAD)W/ITZEL BILAT DATE: 03/17/2025 CLINICAL HISTORY: F, Age 74 y/o , SCREENING TECHNIQUE: SCRN MAMM (CAD)W/ITZEL BILAT COMPARISON: Prior exam(s) dated 03/16/2024, 11/09/2022, 11/26/2021. FINDINGS: TISSUE DENSITY: There are scattered areas of fibroglandular density. Bilateral Breast Mammographic Findings: No significant masses, calcifications or other abnormalities are identified. BI/SCRN MAMM (CAD)W/ITZEL BILAT IMPRESSION: There is no mammographic evidence of malignancy. OVERALL FINAL ASSESSMENT BI-RADS 1: NEGATIVE. RECOMMEND ANNUAL MAMMOGRAPHIC SCREENING. RECOMMENDATION: Routine annual follow-up in 1 Year A letter with findings and recommendations will be mailed to the patient. Reading Location: [id number]
== END | disposition home or self-care (01) ==
LOC: OPBI 10:09
PROVIDERS: PCP Nurse Practitioner Family; Referring Provider Nurse Practitioner Family; Visit Provider Nurse Practitioner Family
DX: Z12.31 Encounter for screening mammogram for malignant neoplasm of breast (principal)
CPT/HCPCS: 77063; 77067

== ENCOUNTER → 2025-05-21 | Outpatient (CLI) | payer MEDICARE, OTHER, SELFPAY ==
--- NOTE | 2025-05-21 17:34 | CT_ITS ---
PROCEDURE: CHEST WITH CONTRAST 05/21/2025 REASON FOR EXAM: OPACITY OF LUNG ON IMAGING STUDY Left lung nodule. TECHNIQUE: Procedure Code: CTCHW Modality: CT Procedure: CHEST WITH CONTRAST Coronal and Sagittal reconstruction series were provided. CONTRAST: Isovue 370 VOLUME: 97 mL One or more dose reduction techniques were used (e.g., Automated exposure control, adjustment of the mA and/or kV according to patient size, use of iterative reconstruction technique). RADIATION DOSE SUMMARY: CTDlvol: 21 mGy DLP: 371.1 mGycm COMPARISON: None. FINDINGS: Thyroid gland: Negative. Lungs: Moderate emphysematous changes. Small area of atelectasis in the lingula. No pulmonary nodules or masses. Pleura: Negative for pleural effusion or pneumothorax. Airways: Imaged bronchi and trachea otherwisenegative. Mediastinum: Negative for mediastinal mass. Lymph nodes: Negative for axillary, mediastinal or hilar adenopathy. Heart and Vasculature: Heart normal size. Mild vascular calcifications of the thoracic aorta. Coronary Artery Calcifications: Mild vascular calcifications of the coronary arteries Upper Abdomen: Mild fatty liver. Hardware: None. Bones: Kyphosis and degenerative changes particularly in the lower thoracic spine. Otherwise age-appropriate degenerative changes of the thoracic spine. CT/Chest WITH Contrast IMPRESSION: Emphysema. Negative for pulmonary nodules or masses. Negative for acute intrathoracic pathology. Reading Location: [id number]
[2025-05-21 17:55] LABS: CREATININE FINGERSTICK < 1.0 mg/dL (0.55-1.02); EGFR FINGERSTICK > 60.0000 mL/min (>60)
== END | disposition home or self-care (01) ==
LOC: CT 17:21
PROVIDERS: PCP Nurse Practitioner Family; Referring Provider Nurse Practitioner Family; Visit Provider Nurse Practitioner Family
DX: R91.8 Other nonspecific abnormal finding of lung field (principal)
CPT/HCPCS: 71260; Q9967

== ENCOUNTER 2025-05-24 19:34 | Emergency (ER) | payer MEDICARE, OTHER, SELFPAY ==
[2025-05-24 19:35] VITALS: BP 161/70; PULSE 100; RESP 19; TEMP 37.8; O2SAT 96; BMI 34.5
[2025-05-24 20:00] VITALS: BP 131/73; PULSE 102; RESP 18; TEMP 38.1; O2SAT 96; O2SAT 97
[2025-05-24] MEDS: 0.9% Normal Saline (1000mL) 1,000 ML 1000 ML IV (20:38)
[2025-05-24 20:42] LABS: Hematocrit 43.1 % (37-47); Hemoglobin 14.3 g/dL (12.0-15.0); Immature Granulocytes Count 0.050 X10^3/uL (0.0-0.0); Mean Corp Hgb Conc 33.2 g/dL (32-36); Mean Corpuscular Volume 95.6 fL (81-99); Mean Platelet Vol. 10.9 fl (6.2-12.0); NRBC Flagged by Analyzer 0 % (0-5); POSITIVE DIFFERENTIAL YES; Platelet Count 212 K/mm3 (150-450); RBC Distribution Width CV 13.2 % (11.6-14.6); RBC Distribution Width SD 46.9 fl (35.1-43.9); Red Blood Count 4.51 M/mm3 (4.2-5.4); White Blood Count 12.2 K/mm3 (4.4-11.0)
[2025-05-24 20:48] LABS: Differential Indicated SCAN CRITERIA MET
--- NOTE | 2025-05-24 20:51 | ED.VIS.DYS ---
HPI History of Present Illness Chief Complaint: Shortness of Breath Narrative Narrative: Patient is a 75-year-old female presenting to the emergency department for 2 days of dry cough, fevers, congestion, rhinorrhea and shortness of breath. Patient has a past medical history of DVT after surgery, diabetes, hypertension, hypothyroidism. Patient states that yesterday morning she developed the symptoms. She states that her daughter has similar symptoms. Patient states that she is feeling short of breath with activity. She did not take any medications prior to arrival for symptoms. Denies any chest pain, abdominal pain, nausea, vomiting, diarrhea, dysuria or hematuria. Denies lower extremity edema. [facility] Medical History Fluid in endometrial cavity FH: total knee replacement Wears dentures Wears glasses MRSA infection Anxiety History of steroid therapy Thyroid disease Diabetes Arthritis Kidney stones Back pain History of IBS Heartburn History of edema History of DVT (deep vein thrombosis) Diabetes GERD (gastroesophageal reflux disease) Hypothyroid Hypertension Osteoarthritis Home Medications ?Medication ?Instructions ?Recorded ?Last Taken ?Type amlodipine 10 mg tablet 10 mg PO DAILY 06/11/17 07/07/24 08:00 History levothyroxine 100 mcg tablet 100 mcg PO SUMOTUWETHFR 06/11/17 07/07/24 07:00 History metformin 500 mg tablet,extended 500 mg PO DAILY 11/16/18 Unknown History release 24 hr vibegron 75 mg tablet (Gemtesa) 75 mg PO DAILY 01/29/23 Unknown History denosumab 60 mg/mL subcutaneous 60 mg subcut .[id number] 07/30/23 Unknown History syringe (Prolia) cholecalciferol (vitamin D3) 50 50 mcg PO QDAY 05/19/24 Unknown History mcg (2,000 unit) capsule cyanocobalamin (vitamin B-12) 1,000 mcg PO DAILY 06/15/24 Unknown History 1,000 mcg tablet (Vitamin B-12) calcium carbonate 500 mg PO DAILY 01/29/25 Unknown History lisinopril 10 mg tablet 10 mg PO DAILY 05/24/25 Unknown History Allergy/AdvReac Type Severity Reaction Status Date / Time Penicillins Allergy Unknown Verified 05/24/25 19:35 Family History Mother Lung cancer Surgical History History of cystoscopy History of total knee replacement Hx of colonoscopy Hx of tonsillectomy Status post total left knee replacement Social History household members: none Smoking Status: Never smoker alcohol intake: never substance use type: does not use caffeine: No what type of physical activity do you participate in: none seatbelt use: always do you feel safe at home: Yes additional social history: ROS ROS ED ROS Narrative see HPI EXAM Physical Exam Narrative Exam Narrative: Vital signs: Reviewed General: Alert and oriented x 3. No acute distress HEENT: Head is normocephalic and atraumatic, sinuses nontender, pupils equal round and reactive. Nares are patent. Oropharynx and throat exams normal. No posterior oropharynx erythema or swelling. Uvula is midline and nonerythematous. Tongue is midline, no elevation of the tongue. No soft palate bogginess, no evidence of William's. Neck: Supple without lymphadenopathy nontender. Trachea midline. Cardiovascular: Tachycardic rate and regular rhythm, no murmurs. No rubs or gallops. Normal S1 and S2 Respiratory: Clear to auscultation bilaterally. No wheezes, rales, rhonchi Abdominal: Soft and nontender. Normal bowel sounds. No guarding or rebound. Nonsurgical abdomen Extremities: No edema. No tenderness. No bruising. Normal range of motion. Normal sensation. Skin: No rash or redness. The rest of the physical exam is unremarkable Const Vital Signs: 05/24/25 19:35 05/24/25 20:00 05/24/25 20:00 Temperature 100.1 F H 100.6 F H Temperature Source Oral Oral Pulse Rate 100 102 H Respiratory Rate 19 H 18 Respiratory Effort Normal Non-Labored Respiratory Depth Normal Respiratory Pattern Normal Blood Pressure 161/70 H 131/73 H Blood Pressure Mean 100 92 Pulse Ox 96 97 Oxygen Delivery Method Room Air Room Air Room Air 05/24/25 21:00 05/24/25 22:00 05/24/25 23:00 Temperature 99 F 98.7 F 98.7 F Temperature Source Oral Oral Oral Pulse Rate 84 84 84 Respiratory Rate 16 18 18 Respiratory Effort Respiratory Depth Respiratory Pattern Blood Pressure 140/77 H 142/78 H 149/73 H Blood Pressure Mean 98 99 98 Pulse Ox 97 95 97 Oxygen Delivery Method Room Air Room Air Room Air MDM MDM MDM Narrative Medical decision making narrative: Patient is a 75-year-old female presenting to the emergency department for cough, fevers, congestion, rhinorrhea and shortness of breath. Patient was seen and examined. She is mildly tachycardic on evaluation at 102. She is febrile at 100.6. Saturating 97% on room air. Differential includes but is not limited to: URI, pneumonia, less likely PE Given the patient's history of DVT and tachycardia along with shortness of breath, CTA of the chest was ordered. Lab work and viral swabs ordered. Patient given Tylenol for her fever and symptomatic control. CBC with mild leukocytosis 12.2 and a normal hemoglobin. BMP with no significant abnormalities. Viral swab is negative for COVID, flu and RSV. CT chest shows no acute intrathoracic pathology. No pulmonary arterial emboli. Patient was reevaluated. She ambulated with pulse ox and continued to saturate well on room air. I think given the patient's history and her negative workup here she likely has a virus. I explained this to the patient and recommended supportive care at home. Patient agreeable with discharge home. Patient discharged from the Emergency Department. I do not feel that the patient's evaluation reveals any acute reason for admission at this time. I instructed them to either follow-up with their primary care physician or promptly return to the Emergency Department for reevaluation should symptoms worsen or new symptoms develop. I explained what symptoms would indicate the need to return to the emergency department. Shared decision making was used. The patient voiced understanding of the treatment plan and is agreeable with it. Clinical impression: Viral illness History & Record Review Discussion w/independent historian: Patient Lab Data Attestation: I reviewed the patient's lab results. Labs: Laboratory Results - last 24 hr 05/24/25 20:32 WBC 12.2 H RBC 4.51 Hgb 14.3 Hct 43.1 MCV 95.6 MCH 31.7 MCHC 33.2 RDW Std Deviation 46.9 H RDW Coeff of Akua 13.2 Plt Count 212 MPV 10.9 Immature Gran % (Auto) 0.400 Neut % (Auto) 71.4 H Lymph % (Auto) 13.2 L [place] % (Auto) 13.4 H Eos % (Auto) 1.3 Baso % (Auto) 0.3 Absolute Neuts (auto) 8.7 H Absolute Lymphs (auto) 1.62 Nucleated RBC % 0 Differential Comment SCANNED Platelet Estimate ADEQUATE Sodium 139 Potassium 3.9 Chloride 104 Carbon Dioxide 22.4 Anion Gap 12 BUN 21 H Creatinine 0.93 Estim Creat Clear Calc 49.64 L Est GFR (MDRD) Non-Af 65 BUN/Creatinine Ratio 22.5 H Glucose 124 H Calcium 9.5 Radiography Diagnostic Testing: Clinical Impression(s) from Imaging Studies Chest CTA 05/24/25 22:05 IMPRESSION: No acute intrathoracic pathology. No pulmonary arterial emboli. Reading Location: [facility] Discharge Plan Triage Chief Complaint: Shortness of Breath Other Complaint: Cold Sx ED Provider: Daysi Maravilla Dx/Rx/DC Orders Clinical Impression: Viral illness Instructions: ED URI, Viral, No Abx (Adult) Prescriptions: No Action cholecalciferol (vitamin D3) 50 mcg (2,000 unit) capsule 50 mcg PO QDAY levothyroxine 100 MCG tablet 100 mcg PO SUMOTUWETHFR amlodipine 10 MG tablet 10 mg PO DAILY metformin 500 MG tablet 500 mg PO DAILY Gemtesa 75 mg Tablet 75 mg PO DAILY Prolia 60 mg/mL syringe 60 mg subcut .[id number] cyanocobalamin (vitamin B-12) [Vitamin B-12] 1,000 mcg tablet 1,000 mcg PO DAILY calcium carbonate 500 mg calcium (1,250 mg) tablet 500 mg PO DAILY lisinopril 10 mg tablet 10 mg PO DAILY Primary Care Provider: Gretel Mane Referrals: Gretel Mane, [id number] [Primary Care Provider] - 2 Days Activity Restrictions/Additional Instructions: Your evaluation in the Emergency Department did not reveal any acute reason for admission. However, I want to emphasize that you may be early in the course of a disease process or illness even if it is not present. For this reason you should follow-up within 24 hours for reevaluation with either your primary care physician or if necessary back here in the Emergency Department. You should return to the Emergency Department immediately if your symptoms worsen or new symptoms develop. Print Language: Niuean Disposition Disposition: Home, Self Care
[2025-05-24 21:00] VITALS: BP 140/77; PULSE 84; RESP 16; TEMP 37.2; O2SAT 97
[2025-05-24 21:48] LABS: Anion Gap 12 (5-15); BUN 21 mg/dL (4-19); BUN/Creat Ratio 22.5 RATIO (10-20); Calcium,Total 9.5 mg/dL (7.6-11.0); Carbon Dioxide 22.4 mmol/L (21.0-32.0); Chloride 104 mmol/L (98-108); Estimated Creatinine Clearance 49.64 ml/min (50-250); Glucose 124 mg/dL (70-99); Potassium 3.9 mmol/L (3.3-5.1)
[2025-05-24 22:00] VITALS: BP 142/78; PULSE 84; RESP 18; TEMP 37.1; O2SAT 95
--- NOTE | 2025-05-24 22:05 | CT_ITS ---
PROCEDURE: CTA CHEST W/WO CONTRAST 05/24/2025 REASON FOR EXAM: SOB, TACHY, HX OF DVT TECHNIQUE: Procedure Code: [id number] Modality: CT Procedure: CTA CHEST W/WO CONTRAST Multiplanar Sagittal and Coronal images were obtained. 3D post processing was performed. CONTRAST: Isovue 370 VOLUME: 82 mL One or more dose reduction techniques were used (e.g., Automated exposure control, adjustment of the mA and/or kV according to patient size, use of iterative reconstruction technique). RADIATION DOSE SUMMARY: DLP: 320.72 mGycm COMPARISON: CT chest 05/21/2025. FINDINGS: PULMONARY VESSELS: No filling defects suspicious for pulmonary arterial emboli identified. Normal caliber of the main pulmonary trunk. No evidence of right heart strain. LUNGS/PLEURA: Clear, with mild bibasilar dependent atelectasis. No airspace consolidation or findings of pulmonary edema. No pneumothorax or pleural effusions. Clear central airways. MEDIASTINUM: No lymphadenopathy. Benign granulomatous calcifications. HEART: Normal in size. No pericardial effusion. Scant coronary artery calcifications. THORACIC AORTA: Normal in course and caliber. Mild atherosclerotic disease. UPPER ABDOMEN: Small hiatal hernia. Splenic and hepatic calcified granulomas. BONES: Multilevel degenerative changes of the spine with exaggerated thoracic kyphosis. CT/CTA Chest W/WO Contrast IMPRESSION: No acute intrathoracic pathology. No pulmonary arterial emboli. Reading Location: [facility]
[2025-05-24 22:09] LABS: Differential Comment SCANNED
[2025-05-24 23:00] VITALS: BP 149/73; PULSE 84; RESP 18; TEMP 37.1; O2SAT 97
[2025-05-24 23:06] VITALS: BP 149/73; PULSE 82; RESP 18; TEMP 37.1; O2SAT 97
== END 2025-05-24 23:12 | disposition home or self-care (01) ==
PROVIDERS: Emergency Provider Student in an Organized Health Care Education/Training Program; PCP Nurse Practitioner Family; Visit Provider Student in an Organized Health Care Education/Training Program
DX: B34.9 Viral infection, unspecified (principal); E11.9 Type 2 diabetes mellitus without complications; I10 Essential (primary) hypertension; Z79.899 Other long term (current) drug therapy; Z79.84 Long term (current) use of oral hypoglycemic drugs; Z86.718 Personal history of other venous thrombosis and embolism
CPT/HCPCS: 71275; 80048; 85025; 87631; 96360; 96361; 99285; Q9967; A4216

== ENCOUNTER 2025-07-30 11:15 | Outpatient (CLI) | payer MEDICARE, OTHER, SELFPAY ==
[2025-07-30 11:25] VITALS: BP 135/67; PULSE 73; RESP 16; TEMP 35.7; O2SAT 96; BMI 35.3
[2025-07-30] MEDS: DENOSUMAB 60 MG/ML SC (11:30)
== END 2025-07-30 23:59 | disposition home or self-care (01) ==
PROVIDERS: PCP Nurse Practitioner Family; Referring Provider Internal Medicine; Visit Provider Internal Medicine
DX: M81.0 Age-related osteoporosis without current pathological fracture (principal)
CPT/HCPCS: 96372; J0897